=== PATIENT | female | born 1960 | race African-American/Black ===

== ENCOUNTER 2016-06-11 14:07 | Inpatient (IN) | payer MEDICAID, OTHER ==
[~2016-06-11] VITALS: Ht 175.3 cm; Wt 77.1 kg
[~2016-06-11 14:07] MED LIST: ADALAT CC60 MG ORAL; BENAZEPRIL HCL20 MG ORAL
[2016-06-11 14:20] VITALS: BP 105/92
--- NOTE | 2016-06-11 14:35 | Emergency Room Report ---
History of Present Illness General Chief Complaint: Back Pain-No Injury Source: Patient Present Illness HPI The patient presents with 3 days of feeling ill. She was laid up for [place]. She's been taking [place] and has been helping. She has left flank pain. The pain is constant and worse when she moves about. She denies any trauma. She had a cough a few weeks ago but this has gotten better. She denies any cough at this time. She denies sore throat, nausea, vomiting, diarrhea, dysuria, hematuria. She's not had this before. She denies any major medical problems. She's been able to take in oral fluids. She drove herself here. The pain is 6/10, achy but somewhat sharp. It doesn't radiate. No NVD, dysuria. No rashes, QUISPE, extremity pain. Allergies: Coded Allergies: No Known Allergies (Unverified , 12/09/13) Patient History Past Medical History: see triage record Social History: Reports: smoking - prior Social History Narrative at home Reviewed Nursing Documentation: PMH: Agreed, PSxH: Agreed Nursing Documentation-PMH Past Medical History: No History, Except For Hx Hypertension: Yes Review of Systems All Other Systems: negative except mentioned in HPI Physical Exam Vital Signs Date Time Temp Pulse Resp B/P Pulse Ox O2 Delivery O2 Flow Rate FiO2 06/11/16 14:12 100.9 123 16 106/69 98 Room Air Sp02 EP Interpretation: reviewed, normal General Appearance: well appearing, no apparent distress, GCS 15 Head: normocephalic Eyes: bilateral eye PERRL, bilateral eye normal inspection ENT: moist mucus membranes Neck: supple Respiratory: chest non-tender, lungs clear, normal breath sounds, percussion normal Cardiovascular #1: regular rate, rhythm, no edema Cardiovascular #2: 2+ radial (R) Gastrointestinal: normal inspection, normal bowel sounds, non tender, no mass, non-distended Genitourinary: CVA tenderness (L) Musculoskeletal: back normal, gait/station normal, normal range of motion, no calf tenderness, other - some L sided tenderness lower lungs/CVA area Neurologic: alert, oriented x3 - Grosssly normal neurologic exam Psychiatric: mood/affect normal Skin: normal inspection, warm/dry Medical Decision Making Diagnostic Impression: Primary Impression: Bilateral pneumonia Qualified Codes: J18.9 - Pneumonia, unspecified organism ER Course Patient presents with onset of flank pain prior history of cough. Chest is clear. There is no upper respiratory symptomatology this time which makes influenza less likely. Differential includes pneumonia, pleurisy of viral syndrome and pyonephritis/UTI. A chest x-ray will be obtained and urinalysis were evaluated. In addition to that she'll be treated with Tylenol. X-ray reveals bilateral infiltrates. Because of this the patient needs extended workup including labs, and EKG. Lactic acid elevated. WBC normal. D-dimer positive - CTA ordered. Negative for PE - bilateral infiltrates with L pleural effusion. Improved with treatment. Patient admitted telemetry Dr. Soni. Laboratory Tests Test 06/11/16 14:19 06/11/16 16:20 06/11/16 17:10 Urine Color Yellow Urine Appearance Slightly cloudy Urine pH 6 (4.5-8.0) Urine Specific [place] 1.010 (1.005-1.035) Urine Protein 1+ (NEGATIVE) H Urine Glucose (UA) Negative (NEGATIVE) Urine Ketones Negative (NEGATIVE) Urine Occult Blood Negative (NEGATIVE) Urine Nitrite Negative (NEGATIVE) Urine Bilirubin Negative (NEGATIVE) Urine Urobilinogen 4 MG/DL (0.0-1.0) H Urine Leukocyte Esterase 1+ (NEGATIVE) H Urine RBC 0-2 /HPF (0 - 2) Urine WBC 0-2 /HPF (0 - 2) Urine Squamous Epithelial Cells Few /LPF (NONE/OCC) Urine Bacteria Few /HPF (NONE) White Blood Count 6.4 K/UL (4.8-10.8) Red Blood Count 4.45 M/UL (4.20-5.40) Hemoglobin 13.4 G/DL (12.0-16.0) Hematocrit 41.7 % (37.0-47.0) Mean Corpuscular Volume 94 FL (80-99) Mean Corpuscular Hemoglobin 30.1 PG (27.0-31.0) Mean Corpuscular Hemoglobin Concent 32.2 G/DL (32.0-36.0) Red Cell Distribution Width 17.6 % (11.6-14.8) H Platelet Count 114 K/UL (150-450) L Mean Platelet Volume 9.2 FL (6.5-10.1) Neutrophils (%) (Auto) 83.0 % (45.0-75.0) H Lymphocytes (%) (Auto) 11.8 % (20.0-45.0) L Monocytes (%) (Auto) 4.7 % (1.0-10.0) Eosinophils (%) (Auto) 0.1 % (0.0-3.0) Basophils (%) (Auto) 0.5 % (0.0-2.0) Prothrombin Time 12.6 SEC (9.30-11.50) H Prothrombin Time INR 1.2 (0.9-1.1) H PTT 35 SEC (23-33) H D-Dimer 1988 ng/mL (<500) H Sodium Level 133 mEQ/L (135-145) L Potassium Level 3.6 mEQ/L (3.4-4.9) Chloride Level 92 mEQ/L (98-107) L Carbon Dioxide Level 25 mEQ/L (20-30) Anion Gap 16 (5-15) H Blood Urea Nitrogen 9 mg/dL (7-23) Creatinine 1.2 mg/dL (0.5-0.9) H Estimate Glomerular Filtration Rate 56.7 mL/min (>60) Glucose Level 108 mg/dL (74-106) H Lactic Acid Level 2.70 mmol/L (0.66-2.22) H 2.70 mmol/L (0.66-2.22) H Calcium Level 8.5 mg/dL (8.6-10.2) L Total Bilirubin 0.5 mg/dL (0.0-1.2) Aspartate Amino Transferase (AST) 38 U/L (5-40) Alanine Aminotransferase (ALT) 25 U/L (3-33) Alkaline Phosphatase 118 U/L (35-104) H Total Creatine Kinase 36 U/L (26-140) Troponin I < 0.30 ng/mL (<=0.30) Pro-B-Type Natriuretic Peptide 113 pg/mL (0-125) Total Protein 7.4 g/dL (6.6-8.7) Albumin 3.0 g/dL (3.5-5.2) L Globulin 4.4 g/dL Albumin/Globulin Ratio 0.6 (1.0-2.7) L EKG Diagnostic Results Rate: normal Rhythm: NSR ST Segments: no acute changes Rhythm Strip Diag. Results EP Interpretation: yes Rhythm: NSR, no PVC's, no ectopy Chest X-Ray Diagnostic Results EP Interpretation: Yes Findings: no pneumothorax, other - Bilateral infiltrates with possible left- sided effusion. Number of Views: 2 CT/MRI/US Diagnostic Results CT/MRI/US Diagnostic Results : Imaging Test Ordered: CTA chest Impression no major PE, bilateral infiltrates effusions. Findings: Pulmonary arterial opacification is barely adequate. No intraluminal filling defects or other findings to suggest acute pulmonary embolus are demonstrated. No thoracic aortic aneurysm or dissection. The main pulmonary artery is ectatic not frankly dilated. There is no evidence of right ventricular dilatation and the heart size is normal. There is normal variant anatomy of common origin of the right brachiocephalic and left common carotid arteries. There is dense consolidation of most of the left lower lobe. The consolidation contains air bronchograms. There is also dense consolidation of the superior segment of the right lower lobe as well as reticular and groundglass parenchymal opacities throughout the remainder of the right lower lobe. Reticular and groundglass parenchymal opacities are also seen within the perihilar right middle lobe and inferior right upper lobe. There are is a small left pleural effusion and trace right pleural effusion. Some peripheral bullae are seen in the right upper lobe. There is mediastinal lymphadenopathy, with largest node being a subcarinal node which measures at least 3.6 cm long axis dimension. Calcified granulomatous lymph nodes are seen in the right pulmonary hilum. The esophagus is unremarkable. No axillary or chest wall mass or adenopathy. The bones are unremarkable. Images of the upper abdomen demonstrate that the spleen is enlarged, measuring at least 13.4 cm diameter, possibly larger as it is incompletely included in the imaging volume. It contains multiple granulomas calcifications. The liver demonstrates prominent and somewhat irregular hepatic arteries. It also demonstrates some peripheral surface nodularity. There are anterior abdominal wall varicosities Impression: No evidence of acute pulmonary embolus Dense consolidation of most of the left lower lobe, consistent with pneumonia There is also patchy consolidation of the right lung, as detailed above Bilateral left greater than right pleural effusions Mediastinal lymphadenopathy. 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 However, the presence of mediastinal lymphadenopathy also raises the possibility that this could be due to lymphoproliferative disorder Evidence of old granulomatous disease within the right pulmonary hilum and spleen Last Vital Signs Date Time Temp Pulse Resp B/P Pulse Ox O2 Delivery O2 Flow Rate FiO2 06/11/16 14:22 123 16 Room Air 06/11/16 14:12 100.9 106/69 98 Status: improved Disposition: ADMITTED INPATIENT Condition: Serious Nghia Barajas M.D. Jun 11, 2016 14:35
[2016-06-11 14:44] LABS: APPEARANCE,URINE SLIGHTLY CLOUDY; KETONES,URINE NEGATIVE (NEGATIVE); LEUKOCYTE ESTERASE ,URINE 1+ (NEGATIVE); NITRITE,URINE NEGATIVE (NEGATIVE); PH,URINE 6 (4.5-8.0); PROTEIN,URINE 1+ (NEGATIVE); UROBILINOGEN,URINE 4 MG/DL (0.0-1.0)
[2016-06-11 14:54] LABS: BACTERIA,URINE FEW /HPF; RBC,URINE 0-2 /HPF (0 - 2); SQUAMOUS EPITHELIAL CELL,UR FEW /LPF (NONE/OCC); WBC,URINE 0-2 /HPF (0 - 2)
[2016-06-11] MEDS ORDERED: Azithromycin 500 MG in NS 250 ML IV ONE (15:30)
[2016-06-11] MEDS ORDERED: LORazepam Inj 2mg/ml 1ml IV ONE (16:00)
[2016-06-11 16:32] VITALS: BP 115/80
[2016-06-11 16:44] LABS: BASOPHILS % (AUTO) 0.5 % (0.0-2.0); EOSINOPHILS % (AUTO) 0.1 % (0.0-3.0); LYMPHOCYTES % (AUTO) 11.8 % (20.0-45.0); MEAN CORPUSCULAR HEMOGLOBIN 30.1 PG (27.0-31.0); MEAN CORPUSCULAR HGB CONC 32.2 G/DL (32.0-36.0); MEAN CORPUSCULAR VOLUME 94 FL (80-99); MEAN PLATELET VOLUME 9.2 FL (6.5-10.1); MONOCYTES % (AUTO) 4.7 % (1.0-10.0); PLATELET COUNT 114 K/UL (150-450); RED BLOOD COUNT 4.45 M/UL (4.20-5.40); RED CELL DISTRIBUTION WIDTH 17.6 % (11.6-14.8); WHITE BLOOD COUNT 6.4 K/UL (4.8-10.8)
[2016-06-11] MEDS ORDERED: Azithromycin Inj IV ONE (16:46)
[2016-06-11 16:59] LABS: TROPONIN I < 0.30 ng/mL (<=0.30)
[2016-06-11 17:03] LABS: ALANINE AMINOTRANSFERASE 25 U/L (3-33); ALBUMIN/GLOBULIN RATIO 0.6 (1.0-2.7); ANION GAP 16 (5-15); ASPARTATE AMINO TRANSFERASE 38 U/L (5-40); CALCIUM 8.5 mg/dL (8.6-10.2); CARBON DIOXIDE 25 mEQ/L (20-30); CHLORIDE 92 mEQ/L (98-107); CREATININE 1.2 mg/dL (0.5-0.9); GLOMERULAR FILTRATION RATE 56.7 mL/min (>60); HEMOLYSIS 44; POTASSIUM 3.6 mEQ/L (3.4-4.9); SODIUM 133 mEQ/L (135-145); TOTAL PROTEIN 7.4 g/dL (6.6-8.7)
[2016-06-11 17:10] LABS: REFLEX LACTIC ACID YES OR NO YES
[2016-06-11 17:19] LABS: INR 1.2 (0.9-1.1); PROTHROMBIN TIME 12.6 SEC (9.30-11.50)
[2016-06-11 18:25] VITALS: BP 105/78
[2016-06-11] MEDS ORDERED: Nitroglycerin Subl 0.4mg tab (Bottle Of 25) SL PRN (22:30)
[2016-06-11] MEDS ORDERED: Mylanta II UD 30ml ORAL PRN (22:30)
[2016-06-11] MEDS ORDERED: Miralax 17gm pkt ORAL PRN (22:30)
[2016-06-11] MEDS ORDERED: DuoNeb 0.5-3(2.5)mg/3ml neb HHN PRN (22:30)
[2016-06-11] MEDS ORDERED: Promethazine/Codeine 5ml UD ORAL PRN (22:30)
[2016-06-12] VITALS (7 sets, daily range): BP systolic 94–107; BP diastolic 54–71
--- NOTE | 2016-06-12 08:37 | Diagnostic Imaging Report ---
ndication: Cough Technique: IV administration nonionic contrast. Spiral acquisitions obtained from the lung bases to the lung apices. Multiplanar and 3-D reconstructions were generated. Total dose length product 750 mGycm. CTDIvol(s) 12, 12, 12, 25, 22 mGy Comparison: None Findings: Pulmonary arterial opacification is barely adequate. No intraluminal filling defects or other findings to suggest acute pulmonary embolus are demonstrated. No thoracic aortic aneurysm or dissection. The main pulmonary artery is ectatic not frankly dilated. There is no evidence of right ventricular dilatation and the heart size is normal. There is normal variant anatomy of common origin of the right brachiocephalic and left common carotid arteries. There is dense consolidation of most of the left lower lobe. The consolidation contains air bronchograms. There is also dense consolidation of the superior segment of the right lower lobe as well as reticular and groundglass parenchymal opacities throughout the remainder of the right lower lobe. Reticular and groundglass parenchymal opacities are also seen within the perihilar right middle lobe and inferior right upper lobe. There are is a small left pleural effusion and trace right pleural effusion. Some peripheral bullae are seen in the right upper lobe. There is mediastinal lymphadenopathy, with largest node being a subcarinal node which measures at least 3.6 cm long axis dimension. Calcified granulomatous lymph nodes are seen in the right pulmonary hilum. The esophagus is unremarkable. No axillary or chest wall mass or adenopathy. The bones are unremarkable. Images of the upper abdomen demonstrate that the spleen is enlarged, measuring at least 13.4 cm diameter, possibly larger as it is incompletely included in the imaging volume. It contains multiple granulomas calcifications. The liver demonstrates prominent and somewhat irregular hepatic arteries. It also demonstrates some peripheral surface nodularity. There are anterior abdominal wall varicosities Impression: No evidence of acute pulmonary embolus Dense consolidation of most of the left lower lobe, consistent with pneumonia There is also patchy consolidation of the right lung, as detailed above Bilateral left greater than right pleural effusions Mediastinal lymphadenopathy. 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 However, the presence of mediastinal lymphadenopathy also raises the possibility that this could be due to lymphoproliferative disorder Evidence of old granulomatous disease within the right pulmonary hilum and spleen This agrees with the preliminary interpretation provided overnight by Dr. Márquez The CT scanner at [facility] is accredited by the [employer] and the scans are performed using protocols designed to limit radiation exposure to as low as reasonably achievable to attain images of sufficient resolution adequate for diagnostic evaluation.
[2016-06-12 08:51] LABS: MEAN CORPUSCULAR HEMOGLOBIN 30.1 PG (27.0-31.0); MEAN CORPUSCULAR HGB CONC 32.2 G/DL (32.0-36.0); MEAN CORPUSCULAR VOLUME 94 FL (80-99); MEAN PLATELET VOLUME 8.4 FL (6.5-10.1); PLATELET COUNT 102 K/UL (150-450); RED BLOOD COUNT 4.33 M/UL (4.20-5.40); RED CELL DISTRIBUTION WIDTH 17.7 % (11.6-14.8); WHITE BLOOD COUNT 6.6 K/UL (4.8-10.8)
[2016-06-12] MEDS ORDERED: NIFEdipine 10mg cap ORAL SCH (09:00)
[2016-06-12] MEDS: Heparin 5000 units/ml inj SUBQ SCH ×3 (09:00→21:00)
[2016-06-12 09:22] LABS: ANION GAP 15 (5-15); CALCIUM 8.3 mg/dL (8.6-10.2); CARBON DIOXIDE 26 mEQ/L (20-30); CHLORIDE 91 mEQ/L (98-107); GLOMERULAR FILTRATION RATE > 60 mL/min (>60); HEMOLYSIS 6; PHOSPHORUS 3.5 mg/dL (2.5-4.8); POTASSIUM 3.2 mEQ/L (3.4-4.9); SODIUM 132 mEQ/L (135-145)
[2016-06-12] MEDS: Norco 10mg/325mg tab ORAL PRN ×2 (09:46→19:30)
--- NOTE | 2016-06-12 09:58 | Cardiology Report ---
APPROVED REPORT EKG Measurement Heart [id number] Sinus tachycardia Nonspecific T wave abnormality Abnormal ECG
[2016-06-12 10:05] LABS: ANISOCYTOSIS 1+; BAND NEUTROPHILS % (MANUAL) 10 % (0-8); BASOPHILS % (MANUAL) 0 % (0-2); EOSINOPHILS % (MANUAL) 0 % (0-3); LYMPHOCYTES % (MANUAL) 13 % (20-45); NEUTROPHILS % (MANUAL) 70 % (45-75); PLATELET ESTIMATE DECREASED; PLATELET MORPHOLOGY NORMAL; TOTAL CELLS COUNTED 100
[2016-06-12] MEDS ORDERED: Promethazine/Codeine 5ml UD ORAL PRN (12:30)
[2016-06-12] MEDS ORDERED: PPD Tuberculin Skin Test 5TU IDERMAL ONE (12:30)
--- NOTE | 2016-06-12 12:30 | History and Physical ---
History of Present Illness General Date patient seen: Jun 12, 2016 Reason for Hospitalization: Back Pain-No Injury Present Illness HPI 55 year olf patient presents with 3 days of feeling ill. She had a cough a few weeks ago but this has gotten better. She denies sore throat, nausea, vomiting, diarrhea, dysuria, hematuria. She's not had this before. She denies any major medical problems. She had CT scan in ER to rule out pulmonary embolism, which showed extensive pulmonary edema and lymphadenopathy. She is admitted to further management. Allergies: Coded Allergies: No Known Allergies (Unverified , 12/09/13) Medication History Scheduled Benazepril Hcl* (Benazepril Hcl*), 20 MG ORAL EVERY 12 HOURS, (Reported) Nifedipine Er* (Adalat Cc*), 60 MG ORAL DAILY Patient History Healthcare decision maker Resuscitation status Advanced Directive on File Past Medical/Surgical History Past Medical/Surgical History: (1) HTN (hypertension) Review of Systems All Other Systems: negative except mentioned in HPI Physical Exam General Appearance: WD/WN, mild distress Lines, tubes and drains: peripheral HEENT: normocephalic, atraumatic Neck: non-tender, normal alignment Cardiovascular/Chest: normal peripheral pulses, normal rate Abdomen: normal bowel sounds, non tender Last 24 Hour Vital Signs Date Time Temp Pulse Resp B/P Pulse Ox O2 Delivery O2 Flow Rate FiO2 06/12/16 11:52 94 18 Room Air 21 06/12/16 11:24 98.2 99 18 97/54 96 Room Air 06/12/16 08:28 96 94/63 06/12/16 08:00 97 06/12/16 07:40 98.1 96 18 94/63 91 Room Air 06/12/16 04:00 111 06/12/16 04:00 100.0 114 20 98/59 90 Room Air 06/12/16 00:00 97.3 100 20 96/55 90 Room Air 06/12/16 00:00 99 06/11/16 19:01 99.9 99 18 105/78 100 Room Air 06/11/16 18:25 99.9 99 18 105/78 100 Room Air 06/11/16 16:32 99.9 100 18 115/80 98 Room Air 06/11/16 14:22 123 16 Room Air 06/11/16 14:20 99.9 101 16 105/92 98 Room Air 06/11/16 14:12 100.9 123 16 106/69 98 Room Air Intake and Output 06/11/16 06/12/16 19:00 07:00 Intake Total 240 ml Balance 240 ml Intake Oral 240 ml # Voids 1 Laboratory Tests Test 06/11/16 14:19 06/11/16 16:20 06/11/16 17:10 06/12/16 08:25 Urine Color Yellow Urine Appearance Slightly cloudy Urine pH 6 (4.5-8.0) Urine Specific [place] 1.010 (1.005-1.035) Urine Protein 1+ (NEGATIVE) H Urine Glucose (UA) Negative (NEGATIVE) Urine Ketones Negative (NEGATIVE) Urine Occult Blood Negative (NEGATIVE) Urine Nitrite Negative (NEGATIVE) Urine Bilirubin Negative (NEGATIVE) Urine Urobilinogen 4 MG/DL (0.0-1.0) H Urine Leukocyte Esterase 1+ (NEGATIVE) H Urine RBC 0-2 /HPF (0 - 2) Urine WBC 0-2 /HPF (0 - 2) Urine Squamous Epithelial Cells Few /LPF (NONE/OCC) Urine Bacteria Few /HPF (NONE) White Blood Count 6.4 K/UL (4.8-10.8) 6.6 K/UL (4.8-10.8) Red Blood Count 4.45 M/UL (4.20-5.40) 4.33 M/UL (4.20-5.40) Hemoglobin 13.4 G/DL (12.0-16.0) 13.0 G/DL (12.0-16.0) Hematocrit 41.7 % (37.0-47.0) 40.5 % (37.0-47.0) Mean Corpuscular Volume 94 FL (80-99) 94 FL (80-99) Mean Corpuscular Hemoglobin 30.1 PG (27.0-31.0) 30.1 PG (27.0-31.0) Mean Corpuscular Hemoglobin Concent 32.2 G/DL (32.0-36.0) 32.2 G/DL (32.0-36.0) Red Cell Distribution Width 17.6 % (11.6-14.8) H 17.7 % (11.6-14.8) H Platelet Count 114 K/UL (150-450) L 102 K/UL (150-450) L Mean Platelet Volume 9.2 FL (6.5-10.1) 8.4 FL (6.5-10.1) Neutrophils (%) (Auto) 83.0 % (45.0-75.0) H % (45.0-75.0) Lymphocytes (%) (Auto) 11.8 % (20.0-45.0) L % (20.0-45.0) Monocytes (%) (Auto) 4.7 % (1.0-10.0) % (1.0-10.0) Eosinophils (%) (Auto) 0.1 % (0.0-3.0) % (0.0-3.0) Basophils (%) (Auto) 0.5 % (0.0-2.0) % (0.0-2.0) Prothrombin Time 12.6 SEC (9.30-11.50) H Prothromb Time International Ratio 1.2 (0.9-1.1) H Activated Partial Thromboplast Time 35 SEC (23-33) H D-Dimer 1988 ng/mL (<500) H Sodium Level 133 mEQ/L (135-145) L 132 mEQ/L (135-145) L Potassium Level 3.6 mEQ/L (3.4-4.9) 3.2 mEQ/L (3.4-4.9) L Chloride Level 92 mEQ/L (98-107) L 91 mEQ/L (98-107) L Carbon Dioxide Level 25 mEQ/L (20-30) 26 mEQ/L (20-30) Anion Gap 16 (5-15) H 15 (5-15) Blood Urea Nitrogen 9 mg/dL (7-23) 9 mg/dL (7-23) Creatinine 1.2 mg/dL (0.5-0.9) H 1.0 mg/dL (0.5-0.9) H Estimat Glomerular Filtration Rate 56.7 mL/min (>60) > 60 mL/min (>60) Glucose Level 108 mg/dL (74-106) H 95 mg/dL (74-106) Lactic Acid Level 2.70 mmol/L (0.66-2.22) H 2.70 mmol/L (0.66-2.22) H Calcium Level 8.5 mg/dL (8.6-10.2) L 8.3 mg/dL (8.6-10.2) L Total Bilirubin 0.5 mg/dL (0.0-1.2) Aspartate Amino Transf (AST/SGOT) 38 U/L (5-40) Alanine Aminotransferase (ALT/SGPT) 25 U/L (3-33) Alkaline Phosphatase 118 U/L (35-104) H Total Creatine Kinase 36 U/L (26-140) Troponin I < 0.30 ng/mL (<=0.30) Pro-B-Type Natriuretic Peptide 113 pg/mL (0-125) Total Protein 7.4 g/dL (6.6-8.7) Albumin 3.0 g/dL (3.5-5.2) L 2.4 g/dL (3.5-5.2) L Globulin 4.4 g/dL Albumin/Globulin Ratio 0.6 (1.0-2.7) L Differential Total Cells Counted 100 Neutrophils % (Manual) 70 % (45-75) Lymphocytes % (Manual) 13 % (20-45) L Monocytes % (Manual) 7 % (1-10) Eosinophils % (Manual) 0 % (0-3) Basophils % (Manual) 0 % (0-2) Band Neutrophils 10 % (0-8) H Platelet Estimate Decreased L Platelet Morphology Normal Anisocytosis 1+ Phosphorus Level 3.5 mg/dL (2.5-4.8) Height (Feet): 5 Height (Inches): 9.00 Weight (Pounds): 170 Medications Current Medications Medications (Trade) Dose Ordered Sig/Benito Route PRN Reason Start Time Stop Time Status Last Admin Dose Admin Acetaminophen (Tylenol) 650 mg Q4H PRN ORAL Fever/Headache/Mild Pain 06/12/16 06:30 07/12/16 06:29 06/12/16 05:16 Acetaminophen/ Hydrocodone Bitart 1 ea 1 ea Q4H PRN ORAL Pain Scale (6-10) 06/12/16 08:00 06/19/16 07:59 06/12/16 09:46 Al Hydroxide/Mg Hydroxide (Mylanta II) 30 ml Q6H PRN ORAL dyspepsia 06/11/16 22:30 07/11/16 22:29 Albuterol/ Ipratropium (DuoNeb 0.5-3(2.5)mg/3ml) 3 ml EVERY 4 HOURS PRN HHN Shortness of Breath 06/11/16 22:30 06/16/16 22:29 Cefepime HCl/ Sodium Chloride (Maxipime/Sodium Chloride 50ml bag) 50 ml @ 100 mls/hr EVERY 12 HOURS IV 06/12/16 09:00 06/19/16 08:59 06/12/16 09:44 Heparin Sodium (Porcine) (Heparin 5000 units/ml) 5,000 units EVERY 12 HOURS SUBQ 06/12/16 09:00 07/12/16 08:59 06/12/16 09:54 Nifedipine (Adalat) 60 mg DAILY ORAL 06/12/16 09:00 07/12/16 08:59 Nitroglycerin (Ntg) 0.4 mg Q5M PRN SL Prn Chest Pain 06/11/16 22:30 07/11/16 22:29 Ondansetron HCl (Zofran) 4 mg Q6H PRN IVP Nausea & Vomiting 06/11/16 22:30 07/11/16 22:29 Polyethylene Glycol (Miralax) 17 gm DAILYPRN PRN ORAL Constipation 06/11/16 22:30 07/11/16 22:29 Promethazine HCl/ Codeine (Phenergan with Codeine) 5 ml Q4H PRN ORAL For Cough 06/11/16 22:30 07/11/16 22:29 Temazepam (Restoril) 15 mg HSPRN PRN ORAL Insomnia 06/11/16 22:30 06/18/16 22:29 Assessment/Plan Problem List: (1) Bilateral pneumonia ICD Codes: J18.9 - Pneumonia, unspecified organism SNOMED: 520064750 Qualifiers: Qualified Codes: J18.9 - Pneumonia, unspecified organism (2) Mediastinal lymphadenopathy ICD Codes: R59.0 - Localized enlarged lymph nodes SNOMED: 24878415 (3) Hyponatremia ICD Codes: E87.1 - Hypo-osmolality and hyponatremia SNOMED: 78367660 (4) Portal hypertension ICD Codes: K76.6 - Portal hypertension SNOMED: 29853522 (5) HTN (hypertension) ICD Codes: I10 - Essential (primary) hypertension SNOMED: 39249045 Assessment/Plan IV antibioitcs check sputum abdominal US PPd skin testin HIV testing JAD BYNUM Jun 12, 2016 12:30
[2016-06-12 13:04] LABS: URIC ACID 6.7 mg/dL (3.0-7.5)
--- NOTE | 2016-06-12 13:05 | Consultation ---
Consult Note Consult Note ID DIC # [id number] JORGE DYE M.D. Jun 12, 2016 13:05
[2016-06-12] MEDS: DuoNeb 0.5-3(2.5)mg/3ml neb HHN SCH ×2 (13:06→19:00)
[2016-06-12 13:15] LABS: CORTISOL 11.1 ug/dL; FREE T3 0.9 pg/mL (2.3-4.2); THYROID STIMULATING HORMONE 0.618 uIU/mL (0.300-4.500)
--- NOTE | 2016-06-12 20:08 | Consultation ---
DATE OF CONSULTATION: INFECTIOUS DISEASE CONSULTATION REFERRING PHYSICIAN: Gamal Soni M.D. REASON FOR CONSULTATION: Evaluation of the patient for pneumonia. HISTORY OF PRESENT ILLNESS: The patient is a 55-year-old female who came to the hospital with generalized weakness. The patient has been complaining of cough and was found to have low-grade fever. CT scan of the chest is suggestive of left lung consolidation and right infiltrate. Infectious consultation has been requested for further evaluation for the patient's antibiotic management. PAST MEDICAL HISTORY: History of hypertension. MEDICATIONS: IV cefepime. ALLERGIES: No known drug allergies. SOCIAL HISTORY: Negative for alcohol, drug, or smoking. FAMILY HISTORY: Noncontributory. PHYSICAL EXAMINATION: VITAL SIGNS: Temperature 98.2 degrees, blood pressure 97/54, pulse 99, respiratory rate 18, and T-max 100.9 degrees. HEENT: Mild pale conjunctivae. No icterus. NECK: No lymphadenopathy. CHEST: Coarse breathing sounds. HEART: S1 and S2. ABDOMEN: Soft. EXTREMITIES: No cyanosis. NEUROLOGIC: Awake and alert. LABORATORY AND DIAGNOSTIC DATA: White blood cell 6.6, hemoglobin 13, platelets 102,000. Urinalysis unremarkable. BUN 9 and creatinine 1. AST and ALT are unremarkable and alkaline 118. Blood culture is pending. CT of the chest as mentioned above. ASSESSMENT: The patient is a 55-year-old female with multiple medical problems who came to the hospital with generalized weakness. The patient was found to have pneumonia flu. Also, the patient will benefit from an atypical coverage. The patient's CT scan also showed splenomegaly. The patient white count for the infection that the patient has. possibility of history of human immunodeficiency virus. PLAN: 1. We will continue the patient on IV cefepime and add Zithromax. 2. Human immunodeficiency virus. 3. Monitor blood culture and sputum culture. 4. Monitor chest x-ray. 5. Monitor CBC. 6. Monitor BMP. 7. Based on labs, we will do further recommendation. Thank you, Dr. Soni, for allowing me to participate in the care of this patient. I will follow the patient with you. Alcides Adams M.D. DR: HAIR JOB#: [id number] CC:
[2016-06-12] MEDS ORDERED: Nitroglycerin Subl 0.4mg tab (Bottle Of 25) SL PRN (22:20)
[2016-06-12] MEDS ORDERED: Miralax 17gm pkt ORAL PRN (22:30)
[2016-06-12] MEDS ORDERED: Mylanta II UD 30ml ORAL PRN (22:30)
[2016-06-13] VITALS: BP 113/65
[2016-06-13] MEDS ORDERED: Norco 10mg/325mg tab ORAL PRN
[2016-06-13] MEDS ORDERED: Promethazine/Codeine 5ml UD ORAL PRN (00:30)
[2016-06-13] MEDS: DuoNeb 0.5-3(2.5)mg/3ml neb HHN SCH ×4 (01:31→19:00)
[2016-06-13 04:00] VITALS: BP 107/65
[2016-06-13 07:03] LABS: APPEARANCE,URINE CLEAR; KETONES,URINE NEGATIVE (NEGATIVE); LEUKOCYTE ESTERASE ,URINE NEGATIVE (NEGATIVE); NITRITE,URINE NEGATIVE (NEGATIVE); PH,URINE 7 (4.5-8.0); PROTEIN,URINE NEGATIVE (NEGATIVE); UROBILINOGEN,URINE 1 MG/DL (0.0-1.0)
[2016-06-13 07:21] LABS: BACTERIA,URINE OCCASIONAL /HPF; RBC,URINE 0-2 /HPF (0 - 2); SQUAMOUS EPITHELIAL CELL,UR FEW /LPF (NONE/OCC); WBC,URINE 0-2 /HPF (0 - 2)
[2016-06-13 08:00] VITALS: BP 109/68
[2016-06-13] MEDS ORDERED: Heparin 5000 units/ml inj SUBQ SCH (09:00)
--- NOTE | 2016-06-13 11:10 | Infectious Diseases Prog Note ---
Assessment/Plan Assessment/Plan A: The patient is a 55-year-old female Pneumonia CT: left lung consolidation and right infiltrate. Low-grade fever HIV Pt now admits to have HIV CD4 ( high ) and VL < 20 ) , does not recall her HIV meds HTN PLAN: cont on IV cefepime and add Zithromax d# 2 / 5 Monitor blood culture Monitor sputum culture Monitor chest x-ray Monitor CBC Monitor BMP asked RN to call pt HIV provider for the list of meds Subjective Allergies: Coded Allergies: No Known Allergies (Unverified , 12/09/13) Objective Vital Signs Last 24 Hour Vital Signs Date Time Temp Pulse Resp B/P Pulse Ox O2 Delivery O2 Flow Rate FiO2 06/13/16 10:12 74 18 96 Room Air 06/13/16 10:10 Room Air 06/13/16 10:09 Room Air 06/13/16 08:00 97.9 105 18 109/68 92 Room Air 06/13/16 04:00 97.9 95 20 107/65 95 Room Air 06/13/16 01:39 96 18 98 Room Air 21 06/13/16 01:29 94 20 95 Room Air 21 06/13/16 00:00 96.1 101 20 113/65 95 Room Air 06/12/16 22:45 97.9 100 20 107/71 95 Nasal Cannula 2.0 06/12/16 20:12 75 18 97 Room Air 21 06/12/16 20:02 72 22 96 Room Air 21 06/12/16 20:00 97.8 100 20 98/68 96 Room Air 06/12/16 16:00 97.5 102 20 99/69 92 Room Air 06/12/16 16:00 103 06/12/16 15:02 Room Air 06/12/16 15:02 Room Air 06/12/16 13:07 92 20 95 Room Air 21 06/12/16 12:00 99 06/12/16 11:52 94 18 Room Air 21 06/12/16 11:24 98.2 99 18 97/54 96 Room Air Height (Feet): 5 Height (Inches): 9.00 Weight (Pounds): 170 Microbiology Date/Time Source Procedure Growth Status 06/11/16 16:20 Blood Blood Culture - Preliminary NO GROWTH AFTER 24 HOURS Resulted 06/11/16 16:05 Blood Blood Culture - Preliminary NO GROWTH AFTER 24 HOURS Resulted Laboratory Tests Test 06/13/16 06:15 Urine Color Yellow Urine Appearance Clear Urine pH 7 (4.5-8.0) Urine Specific [place] 1.005 (1.005-1.035) Urine Protein Negative (NEGATIVE) Urine Glucose (UA) Negative (NEGATIVE) Urine Ketones Negative (NEGATIVE) Urine Occult Blood Negative (NEGATIVE) Urine Nitrite Negative (NEGATIVE) Urine Bilirubin Negative (NEGATIVE) Urine Urobilinogen 1 MG/DL (0.0-1.0) H Urine Leukocyte Esterase Negative (NEGATIVE) Urine RBC 0-2 /HPF (0 - 2) Urine WBC 0-2 /HPF (0 - 2) Urine Squamous Epithelial Cells Few /LPF (NONE/OCC) Urine Bacteria Occasional /HPF (NONE) Urine Osmolality Pending Urine Random Sodium 43 mmol/L Current Medications Medications (Trade) Dose Ordered Sig/[place] Route PRN Reason Start Time Stop Time Status Last Admin Dose Admin Acetaminophen (Tylenol) 650 mg Q4H PRN ORAL Fever/Headache/Mild Pain 06/12/16 22:30 07/12/16 22:29 Acetaminophen/ Hydrocodone Bitart ([place] 10/325) 1 ea Q4H PRN ORAL Pain Scale (6-10) 06/13/16 00:00 06/20/16 00:00 Al Hydroxide/Mg Hydroxide (Mylanta II) 30 ml Q6H PRN ORAL dyspepsia 06/12/16 22:30 07/12/16 22:29 Albuterol/ Ipratropium (DuoNeb 0.5-3(2.5)mg/3ml) 3 ml Q4H PRN HHN Shortness of Breath 06/13/16 01:00 06/18/16 00:59 Albuterol/ Ipratropium (DuoNeb 0.5-3(2.5)mg/3ml) 3 ml Q6HRT HHN 06/13/16 01:00 06/18/16 00:59 06/13/16 01:31 Azithromycin 500 mg/Dextrose 250 ml @ 250 mls/hr Q24HRS IV 06/13/16 14:00 06/18/16 14:01 Cefepime HCl/ Sodium Chloride (Maxipime/Sodium Chloride 50ml bag) 50 ml @ 100 mls/hr EVERY 12 HOURS IV 06/13/16 09:00 06/20/16 08:59 Nifedipine (Procardia XL) 60 mg DAILY ORAL 06/13/16 09:00 07/13/16 08:59 Nitroglycerin (Ntg) 0.4 mg Q5M PRN SL Prn Chest Pain 06/12/16 22:20 07/12/16 22:19 Ondansetron HCl (Zofran) 4 mg Q6H PRN IVP Nausea & Vomiting 06/12/16 22:30 07/12/16 22:29 Polyethylene Glycol (Miralax) 17 gm DAILYPRN PRN ORAL Constipation 06/12/16 22:30 07/12/16 22:29 Promethazine HCl/ Codeine (Phenergan with Codeine) 5 ml Q4H PRN ORAL For Cough 06/12/16 22:30 07/12/16 22:29 Temazepam (Restoril) 15 mg HSPRN PRN ORAL Insomnia 06/12/16 22:30 06/19/16 22:29 JORGE DYE M.D. Jun 13, 2016 11:10
[2016-06-13 12:00] VITALS: BP 99/61
[2016-06-13 15:14] LABS: HIV-1 ANTIBODY Positive (Negative); HIV-2 ANTIBODY Indeterminate (Negative)
[2016-06-13 16:00] VITALS: BP 98/63
--- NOTE | 2016-06-13 16:47 | Pulmonology Progress Note ---
Assessment/Plan Problems: (1) Bilateral pneumonia (2) Mediastinal lymphadenopathy (3) Hyponatremia (4) Portal hypertension (5) HTN (hypertension) Assessment/Plan continue antibiotics check sputum cxr in am Subjective ROS Limited/Unobtainable: No Constitutional: Reports: no symptoms HEENT: Repors: no symptoms Respiratory: Reports: no symptoms Cardiovascular: Reports: no symptoms Allergies: Coded Allergies: No Known Allergies (Unverified , 12/09/13) Objective Last 24 Hour Vital Signs Date Time Temp Pulse Resp B/P Pulse Ox O2 Delivery O2 Flow Rate FiO2 06/13/16 13:00 65 14 100 Room Air 21 06/13/16 12:00 96.0 100 16 99/61 95 Room Air 06/13/16 10:12 74 18 96 Room Air 06/13/16 10:10 Room Air 06/13/16 10:09 Room Air 06/13/16 08:00 97.9 105 18 109/68 92 Room Air 06/13/16 04:00 97.9 95 20 107/65 95 Room Air 06/13/16 01:39 96 18 98 Room Air 21 06/13/16 01:29 94 20 95 Room Air 21 06/13/16 00:00 96.1 101 20 113/65 95 Room Air 06/12/16 22:45 97.9 100 20 107/71 95 Nasal Cannula 2.0 06/12/16 20:12 75 18 97 Room Air 21 06/12/16 20:02 72 22 96 Room Air 21 06/12/16 20:00 97.8 100 20 98/68 96 Room Air Intake and Output 06/12/16 06/13/16 19:00 07:00 Intake Total 790 ml 350 ml Balance 790 ml 350 ml Intake Oral 440 ml 350 ml IV Total 350 ml # Voids 3 2 General Appearance: WD/WN HEENT: normocephalic, atraumatic Respiratory/Chest: chest wall non-tender, lungs clear Breasts: no masses Cardiovascular: normal rate Abdomen: normal bowel sounds, soft, non tender Extremities: no cyanosis, no clubbing 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, no motor/sensory deficits Microbiology Date/Time Source Procedure Growth Status 06/11/16 16:20 Blood Blood Culture - Preliminary NO GROWTH AFTER 24 HOURS Resulted 06/11/16 16:05 Blood Blood Culture - Preliminary NO GROWTH AFTER 24 HOURS Resulted Laboratory Tests 06/13/16 06:15: Urine Color Yellow, Urine Appearance Clear, Urine pH 7, Urine Specific [place] 1.005, Urine Protein Negative, Urine Glucose (UA) Negative, Urine Ketones Negative, Urine Occult Blood Negative, Urine Nitrite Negative, Urine Bilirubin Negative, Urine Urobilinogen 1H, Urine Leukocyte Esterase Negative, Urine RBC 0- 2, Urine WBC 0-2, Urine Squamous Epithelial Cells Few, Urine Bacteria Occasional , Urine Osmolality [Pending], Urine Random Sodium 43 Current Medications Medications (Trade) Dose Ordered Sig/[place] Route PRN Reason Start Time Stop Time Status Last Admin Dose Admin Acetaminophen (Tylenol) 650 mg Q4H PRN ORAL Fever/Headache/Mild Pain 06/12/16 22:30 07/12/16 22:29 Acetaminophen/ Hydrocodone Bitart ([place] 10/325) 1 ea Q4H PRN ORAL Pain Scale (6-10) 06/13/16 00:00 06/20/16 00:00 Al Hydroxide/Mg Hydroxide (Mylanta II) 30 ml Q6H PRN ORAL dyspepsia 06/12/16 22:30 07/12/16 22:29 Albuterol/ Ipratropium (DuoNeb 0.5-3(2.5)mg/3ml) 3 ml Q4H PRN HHN Shortness of Breath 06/13/16 01:00 06/18/16 00:59 Albuterol/ Ipratropium (DuoNeb 0.5-3(2.5)mg/3ml) 3 ml Q6HRT HHN 06/13/16 01:00 06/18/16 00:59 06/13/16 01:31 Azithromycin 500 mg/Dextrose 250 ml @ 250 mls/hr Q24HRS IV 06/13/16 14:00 06/18/16 14:01 Cefepime HCl/ Sodium Chloride (Maxipime/Sodium Chloride 50ml bag) 50 ml @ 100 mls/hr EVERY 12 HOURS IV 06/13/16 09:00 06/20/16 08:59 Nifedipine (Procardia XL) 60 mg DAILY ORAL 06/13/16 09:00 07/13/16 08:59 Nitroglycerin (Ntg) 0.4 mg Q5M PRN SL Prn Chest Pain 06/12/16 22:20 07/12/16 22:19 Ondansetron HCl (Zofran) 4 mg Q6H PRN IVP Nausea & Vomiting 06/12/16 22:30 07/12/16 22:29 Polyethylene Glycol (Miralax) 17 gm DAILYPRN PRN ORAL Constipation 06/12/16 22:30 07/12/16 22:29 Promethazine HCl/ Codeine (Phenergan with Codeine) 5 ml Q4H PRN ORAL For Cough 06/12/16 22:30 07/12/16 22:29 Temazepam (Restoril) 15 mg HSPRN PRN ORAL Insomnia 06/12/16 22:30 06/19/16 22:29 JAD BYNUM Jun 13, 2016 16:47
--- NOTE | 2016-06-13 17:03 | Diagnostic Imaging Report ---
Indications: Shortness of breath Technique: PA and lateral chest Findings: Comparison: 06/11 16 Bilateral batwing alveolar infiltrates have increased in severity. Blunting of left costophrenic angle indicating pleural effusion persists. Cardiac mediastinal silhouette stable. No new abnormality identified. IMPRESSION: Worsening of bilateral alveolar opacities compatible with progression of pulmonary edema versus pneumonitis Stable small left pleural effusion
[2016-06-13 19:00] VITALS: BP 115/77
[2016-06-14] VITALS (7 sets, daily range): BP systolic 99–112; BP diastolic 63–74
[2016-06-14] MEDS: DuoNeb 0.5-3(2.5)mg/3ml neb HHN PRN ×2 (00:49→16:56)
[2016-06-14] MEDS: Promethazine/Codeine 5ml UD ORAL PRN ×4 (01:33→21:11)
[2016-06-14] MEDS: DuoNeb 0.5-3(2.5)mg/3ml neb HHN SCH ×4 (07:39→18:47)
[2016-06-14 08:11] LABS: BASOPHILS % (AUTO) 0.6 % (0.0-2.0); EOSINOPHILS % (AUTO) 0.7 % (0.0-3.0); LYMPHOCYTES % (AUTO) 13.9 % (20.0-45.0); MEAN CORPUSCULAR HEMOGLOBIN 30.2 PG (27.0-31.0); MEAN CORPUSCULAR HGB CONC 32.4 G/DL (32.0-36.0); MEAN CORPUSCULAR VOLUME 93 FL (80-99); MEAN PLATELET VOLUME 9.5 FL (6.5-10.1); MONOCYTES % (AUTO) 8.5 % (1.0-10.0); NEUTROPHILS % (AUTO) 76.4 % (45.0-75.0); PLATELET COUNT 126 K/UL (150-450); RED BLOOD COUNT 4.15 M/UL (4.20-5.40); RED CELL DISTRIBUTION WIDTH 17.9 % (11.6-14.8); WHITE BLOOD COUNT 8.4 K/UL (4.8-10.8)
[2016-06-14 08:29] LABS: ALANINE AMINOTRANSFERASE 15 U/L (3-33); ALBUMIN/GLOBULIN RATIO 0.5 (1.0-2.7); ANION GAP 14 (5-15); ASPARTATE AMINO TRANSFERASE 29 U/L (5-40); CALCIUM 8.1 mg/dL (8.6-10.2); CARBON DIOXIDE 29 mEQ/L (20-30); CHLORIDE 93 mEQ/L (98-107); GLOMERULAR FILTRATION RATE > 60 mL/min (>60); HEMOLYSIS 4; MAGNESIUM 1.9 mg/dL (1.7-2.5); PHOSPHORUS 3.6 mg/dL (2.5-4.8); POTASSIUM 3.1 mEQ/L (3.4-4.9); SODIUM 136 mEQ/L (135-145); TOTAL PROTEIN 6.7 g/dL (6.6-8.7)
--- NOTE | 2016-06-14 13:08 | Infectious Diseases Prog Note ---
Assessment/Plan Assessment/Plan A: The patient is a 55-year-old female Pneumonia CT: left lung consolidation and right infiltrate. Low-grade fever HIV Pt now admits to have HIV CD4 ( high ) and VL < 20 ) , does not recall her HIV meds LACosis HTN PLAN: cont on IV cefepime and add Zithromax d# 3 / 5 Monitor blood culture Monitor sputum culture Monitor chest x-ray Monitor CBC Monitor BMP ,LAC ddsdfsdf pt has not eloisa her meds list ( including HIV meds) Subjective Constitutional: Denies: anorexia, chills, drenching sweats, fatigue, fever, no symptoms, other Allergies: Coded Allergies: No Known Allergies (Unverified , 12/09/13) Objective Vital Signs Last 24 Hour Vital Signs Date Time Temp Pulse Resp B/P Pulse Ox O2 Delivery O2 Flow Rate FiO2 06/14/16 12:09 99.7 96 20 108/74 93 Room Air 06/14/16 09:00 91 99/63 06/14/16 08:00 99.0 91 20 99/63 93 Nasal Cannula 2.0 06/14/16 07:49 83 20 95 Nasal Cannula 2.0 28 06/14/16 07:39 93 20 93 Nasal Cannula 2.0 28 06/14/16 04:00 99.7 21 110/71 90 Room Air 06/14/16 01:46 96 06/14/16 00:51 98.4 96 20 99/66 90 Nasal Cannula 2.0 06/14/16 00:50 28 06/14/16 00:49 87 20 92 Nasal Cannula 2.0 28 06/14/16 00:00 Room Air 06/14/16 00:00 Room Air 06/13/16 19:12 Room Air 06/13/16 19:12 Room Air 06/13/16 19:00 97.7 100 20 115/77 96 06/13/16 16:00 98.1 97 20 98/63 Room Air 06/13/16 13:00 65 14 100 Room Air 21 Height (Feet): 5 Height (Inches): 9.00 Weight (Pounds): 170 HEENT: anicteric Respiratory/Chest: normal breath sounds Cardiovascular: regular rhythm Abdomen: non distended Microbiology Date/Time Source Procedure Growth Status 06/11/16 16:20 Blood Blood Culture - Preliminary NO GROWTH AFTER 48 HOURS Resulted 06/11/16 16:05 Blood Blood Culture - Preliminary NO GROWTH AFTER 48 HOURS Resulted Laboratory Tests Test 06/14/16 06:55 White Blood Count 8.4 K/UL (4.8-10.8) Red Blood Count 4.15 M/UL (4.20-5.40) L Hemoglobin 12.5 G/DL (12.0-16.0) Hematocrit 38.7 % (37.0-47.0) Mean Corpuscular Volume 93 FL (80-99) Mean Corpuscular Hemoglobin 30.2 PG (27.0-31.0) Mean Corpuscular Hemoglobin Concent 32.4 G/DL (32.0-36.0) Red Cell Distribution Width 17.9 % (11.6-14.8) H Platelet Count 126 K/UL (150-450) L Mean Platelet Volume 9.5 FL (6.5-10.1) Neutrophils (%) (Auto) 76.4 % (45.0-75.0) H Lymphocytes (%) (Auto) 13.9 % (20.0-45.0) L Monocytes (%) (Auto) 8.5 % (1.0-10.0) Eosinophils (%) (Auto) 0.7 % (0.0-3.0) Basophils (%) (Auto) 0.6 % (0.0-2.0) Sodium Level 136 mEQ/L (135-145) Potassium Level 3.1 mEQ/L (3.4-4.9) L Chloride Level 93 mEQ/L (98-107) L Carbon Dioxide Level 29 mEQ/L (20-30) Anion Gap 14 (5-15) Blood Urea Nitrogen 8 mg/dL (7-23) Creatinine 1.0 mg/dL (0.5-0.9) H Estimat Glomerular Filtration Rate > 60 mL/min (>60) Glucose Level 93 mg/dL (74-106) Calcium Level 8.1 mg/dL (8.6-10.2) L Phosphorus Level 3.6 mg/dL (2.5-4.8) Magnesium Level 1.9 mg/dL (1.7-2.5) Total Bilirubin 0.6 mg/dL (0.0-1.2) Aspartate Amino Transf (AST/SGOT) 29 U/L (5-40) Alanine Aminotransferase (ALT/SGPT) 15 U/L (3-33) Alkaline Phosphatase 152 U/L (35-104) H Total Protein 6.7 g/dL (6.6-8.7) Albumin 2.5 g/dL (3.5-5.2) L Globulin 4.2 g/dL Albumin/Globulin Ratio 0.5 (1.0-2.7) L Current Medications Medications (Trade) Dose Ordered Sig/[place] Route PRN Reason Start Time Stop Time Status Last Admin Dose Admin Acetaminophen (Tylenol) 650 mg Q4H PRN ORAL Fever/Headache/Mild Pain 06/12/16 22:30 07/12/16 22:29 Acetaminophen/ Hydrocodone Bitart ([place] 10/325) 1 ea Q4H PRN ORAL Pain Scale (6-10) 06/13/16 00:00 06/20/16 00:00 Al Hydroxide/Mg Hydroxide (Mylanta II) 30 ml Q6H PRN ORAL dyspepsia 06/12/16 22:30 07/12/16 22:29 Albuterol/ Ipratropium (DuoNeb 0.5-3(2.5)mg/3ml) 3 ml Q4H PRN HHN Shortness of Breath 06/13/16 01:00 06/18/16 00:59 06/14/16 00:49 Albuterol/ Ipratropium (DuoNeb 0.5-3(2.5)mg/3ml) 3 ml Q6HRT HHN 06/13/16 01:00 06/18/16 00:59 06/14/16 07:39 Azithromycin 500 mg/Dextrose 250 ml @ 250 mls/hr Q24HRS IV 06/13/16 14:00 06/18/16 14:01 06/13/16 14:00 Cefepime HCl/ Sodium Chloride (Maxipime/Sodium Chloride 50ml bag) 50 ml @ 100 mls/hr EVERY 12 HOURS IV 06/13/16 09:00 06/20/16 08:59 06/14/16 09:59 Nifedipine (Procardia XL) 60 mg DAILY ORAL 06/13/16 09:00 07/13/16 08:59 Nitroglycerin (Ntg) 0.4 mg Q5M PRN SL Prn Chest Pain 06/12/16 22:20 07/12/16 22:19 Ondansetron HCl (Zofran) 4 mg Q6H PRN IVP Nausea & Vomiting 06/12/16 22:30 07/12/16 22:29 Polyethylene Glycol (Miralax) 17 gm DAILYPRN PRN ORAL Constipation 06/12/16 22:30 07/12/16 22:29 Promethazine HCl/ Codeine (Phenergan with Codeine) 5 ml Q4H PRN ORAL For Cough 06/12/16 22:30 07/12/16 22:29 06/14/16 10:59 Temazepam (Restoril) 15 mg HSPRN PRN ORAL Insomnia 06/12/16 22:30 06/19/16 22:29 JORGE DYE M.D. Jun 14, 2016 13:07
--- NOTE | 2016-06-14 14:39 | Pulmonology Progress Note ---
Assessment/Plan Problems: (1) Bilateral pneumonia (2) Mediastinal lymphadenopathy (3) Hyponatremia (4) Portal hypertension (5) HTN (hypertension) Assessment/Plan continue antibiotics check sputum check LDH HIV screening d/w dr [place] Subjective ROS Limited/Unobtainable: No Constitutional: Reports: no symptoms HEENT: Repors: no symptoms Respiratory: Reports: no symptoms Cardiovascular: Reports: no symptoms Allergies: Coded Allergies: No Known Allergies (Unverified , 12/09/13) Objective Last 24 Hour Vital Signs Date Time Temp Pulse Resp B/P Pulse Ox O2 Delivery O2 Flow Rate FiO2 06/14/16 13:40 65 14 100 Nasal Cannula 2.0 06/14/16 12:09 99.7 96 20 108/74 93 Room Air 06/14/16 09:00 91 99/63 06/14/16 08:00 99.0 91 20 99/63 93 Nasal Cannula 2.0 06/14/16 07:49 83 20 95 Nasal Cannula 2.0 06/14/16 07:39 93 20 93 Nasal Cannula 2.0 06/14/16 04:00 99.7 21 110/71 90 Room Air 06/14/16 01:46 96 06/14/16 00:51 98.4 96 20 99/66 90 Nasal Cannula 2.0 06/14/16 00:50 28 06/14/16 00:49 87 20 92 Nasal Cannula 2.0 06/14/16 00:00 Room Air 06/14/16 00:00 Room Air 06/13/16 19:12 Room Air 06/13/16 19:12 Room Air 06/13/16 19:00 97.7 100 20 115/77 96 06/13/16 16:00 98.1 97 20 98/63 Room Air Intake and Output 06/13/16 06/14/16 19:00 07:00 # Voids 2 9 General Appearance: WD/WN HEENT: atraumatic Respiratory/Chest: chest wall non-tender, lungs clear Breasts: no masses Cardiovascular: normal rate Abdomen: normal bowel sounds, soft, non tender Genitourinary: normal external genitalia Extremities: no cyanosis Skin: no rash Microbiology Date/Time Source Procedure Growth Status 06/11/16 16:20 Blood Blood Culture - Preliminary NO GROWTH AFTER 48 HOURS Resulted 06/11/16 16:05 Blood Blood Culture - Preliminary NO GROWTH AFTER 48 HOURS Resulted Laboratory Tests 06/14/16 06:55: White Blood Count 8.4, Red Blood Count 4.15L, Hemoglobin 12.5, Hematocrit 38.7, Mean Corpuscular Volume 93, Mean Corpuscular Hemoglobin 30.2, Mean Corpuscular Hemoglobin Concent 32.4, Red Cell Distribution Width 17.9H, Platelet Count 126L , Mean Platelet Volume 9.5, Neutrophils (%) (Auto) 76.4H, Lymphocytes (%) (Auto ) 13.9L, Monocytes (%) (Auto) 8.5, Eosinophils (%) (Auto) 0.7, Basophils (%) ( Auto) 0.6, Sodium Level 136, Potassium Level 3.1L, Chloride Level 93L, Carbon Dioxide Level 29, Anion Gap 14, Blood Urea Nitrogen 8, Creatinine 1.0H, Estimat Glomerular Filtration Rate > 60, Glucose Level 93, Calcium Level 8.1L, Phosphorus Level 3.6, Magnesium Level 1.9, Total Bilirubin 0.6, Aspartate Amino Transf (AST/SGOT) 29, Alanine Aminotransferase (ALT/SGPT) 15, Alkaline Phosphatase 152H, Total Protein 6.7, Albumin 2.5L, Globulin 4.2, Albumin/ Globulin Ratio 0.5L Current Medications Medications (Trade) Dose Ordered Sig/[place] Route PRN Reason Start Time Stop Time Status Last Admin Dose Admin Acetaminophen (Tylenol) 650 mg Q4H PRN ORAL Fever/Headache/Mild Pain 06/12/16 22:30 07/12/16 22:29 Acetaminophen/ Hydrocodone Bitart ([place] 10/325) 1 ea Q4H PRN ORAL Pain Scale (6-10) 06/13/16 00:00 06/20/16 00:00 Al Hydroxide/Mg Hydroxide (Mylanta II) 30 ml Q6H PRN ORAL dyspepsia 06/12/16 22:30 07/12/16 22:29 Albuterol/ Ipratropium (DuoNeb 0.5-3(2.5)mg/3ml) 3 ml Q4H PRN HHN Shortness of Breath 06/13/16 01:00 06/18/16 00:59 06/14/16 00:49 Albuterol/ Ipratropium (DuoNeb 0.5-3(2.5)mg/3ml) 3 ml Q6HRT HHN 06/13/16 01:00 06/18/16 00:59 06/14/16 13:40 Azithromycin 500 mg/Dextrose 250 ml @ 250 mls/hr Q24HRS IV 06/13/16 14:00 06/18/16 14:01 06/13/16 14:00 Cefepime HCl/ Sodium Chloride (Maxipime/Sodium Chloride 50ml bag) 50 ml @ 100 mls/hr EVERY 12 HOURS IV 06/13/16 09:00 06/20/16 08:59 06/14/16 09:59 Nifedipine (Procardia XL) 60 mg DAILY ORAL 06/13/16 09:00 07/13/16 08:59 Nitroglycerin (Ntg) 0.4 mg Q5M PRN SL Prn Chest Pain 06/12/16 22:20 07/12/16 22:19 Ondansetron HCl (Zofran) 4 mg Q6H PRN IVP Nausea & Vomiting 06/12/16 22:30 07/12/16 22:29 Polyethylene Glycol (Miralax) 17 gm DAILYPRN PRN ORAL Constipation 06/12/16 22:30 07/12/16 22:29 Promethazine HCl/ Codeine (Phenergan with Codeine) 5 ml Q4H PRN ORAL For Cough 06/12/16 22:30 07/12/16 22:29 06/14/16 10:59 Temazepam (Restoril) 15 mg HSPRN PRN ORAL Insomnia 06/12/16 22:30 06/19/16 22:29 Tuberculin PPD (Tubersol (PPD)) 0.1 ml ONCE ONCE IDERMAL 06/14/16 15:00 06/14/16 15:01 JAD BYNUM Jun 14, 2016 14:39
[2016-06-14] MEDS ORDERED: PPD Tuberculin Skin Test 5TU IDERMAL ONE (15:00)
[2016-06-15] MEDS: DuoNeb 0.5-3(2.5)mg/3ml neb HHN SCH ×4 (01:27→19:40)
[2016-06-15 04:27] VITALS: BP 110/73
[2016-06-15 07:35] LABS: BASOPHILS % (AUTO) 0.9 % (0.0-2.0); EOSINOPHILS % (AUTO) 0.8 % (0.0-3.0); LYMPHOCYTES % (AUTO) 20.7 % (20.0-45.0); MEAN CORPUSCULAR HEMOGLOBIN 29.9 PG (27.0-31.0); MEAN CORPUSCULAR HGB CONC 32.3 G/DL (32.0-36.0); MEAN CORPUSCULAR VOLUME 93 FL (80-99); MEAN PLATELET VOLUME 8.3 FL (6.5-10.1); NEUTROPHILS % (AUTO) 66.7 % (45.0-75.0); PLATELET COUNT 162 K/UL (150-450); RED CELL DISTRIBUTION WIDTH 18.1 % (11.6-14.8); WHITE BLOOD COUNT 6.7 K/UL (4.8-10.8)
[2016-06-15 07:44] LABS: INR 1.2 (0.9-1.1); PROTHROMBIN TIME 11.8 SEC (9.30-11.50)
[2016-06-15 08:00] VITALS: BP 105/68
[2016-06-15 08:03] LABS: ALANINE AMINOTRANSFERASE 12 U/L (3-33); ALBUMIN/GLOBULIN RATIO 0.5 (1.0-2.7); ANION GAP 13 (5-15); ASPARTATE AMINO TRANSFERASE 27 U/L (5-40); CARBON DIOXIDE 30 mEQ/L (20-30); CHLORIDE 92 mEQ/L (98-107); CREATININE 1.1 mg/dL (0.5-0.9); GLOMERULAR FILTRATION RATE > 60 mL/min (>60); HEMOLYSIS 3; MAGNESIUM 2.3 mg/dL (1.7-2.5); PHOSPHORUS 4.2 mg/dL (2.5-4.8); POTASSIUM 3.3 mEQ/L (3.4-4.9); SODIUM 135 mEQ/L (135-145)
[2016-06-15 09:16] LABS: CA 125 47.7 U/mL (0.0-38.1); CA15-3 36.7 U/mL (0.0-25.0)
--- NOTE | 2016-06-15 10:50 | Infectious Diseases Prog Note ---
Assessment/Plan Assessment/Plan A: The patient is a 55-year-old female Pneumonia CT: left lung consolidation and right infiltrate. Low-grade fever x 1 HIV CD4 : P Pt now admits to have HIV CD4 ( high ) and VL < 20 ) , does not recall her HIV meds LACosis , SP HTN PLAN: cont on IV cefepime and add Zithromax d# 4 / 5 Monitor blood culture Monitor sputum culture Monitor chest x-ray Monitor CBC Monitor BMP Crypt , coccidio Ab, toxo Ab: P pt has not eloisa her meds list ( including HIV meds) Subjective Constitutional: Reports: fever, Denies: anorexia, chills, drenching sweats, fatigue, no symptoms, other Allergies: Coded Allergies: No Known Allergies (Unverified , 12/09/13) Objective Vital Signs Last 24 Hour Vital Signs Date Time Temp Pulse Resp B/P Pulse Ox O2 Delivery O2 Flow Rate FiO2 06/15/16 09:26 95 105/68 06/15/16 08:00 99.7 95 20 105/68 91 Nasal Cannula 2.0 06/15/16 04:27 97.2 89 19 110/73 93 Nasal Cannula 2.0 93 06/15/16 04:00 92 06/15/16 01:35 91 18 97 Nasal Cannula 3.0 32 06/15/16 01:27 88 24 94 Nasal Cannula 3.0 32 06/15/16 01:25 98.8 06/15/16 00:00 93 06/14/16 23:56 100.8 96 18 112/70 93 Nasal Cannula 2.0 93 06/14/16 20:00 99.0 101 20 102/63 Nasal Cannula 2.0 83 06/14/16 20:00 100 06/14/16 19:01 98 22 89 Nasal Cannula 4.0 36 06/14/16 18:47 104 24 74 Nasal Cannula 4.0 36 06/14/16 17:09 97 22 87 Nasal Cannula 2.0 28 06/14/16 16:56 100 22 85 Nasal Cannula 2.0 28 06/14/16 16:40 99.9 72 Nasal Cannula 2.0 06/14/16 16:00 97 06/14/16 16:00 99.9 100 22 111/70 Nasal Cannula 2.0 72 06/14/16 13:50 84 20 96 Nasal Cannula 2.0 28 06/14/16 13:40 65 14 100 Nasal Cannula 2.0 28 06/14/16 12:09 99.7 96 20 108/74 93 Room Air Height (Feet): 5 Height (Inches): 9.00 Weight (Pounds): 170 HEENT: atraumatic Respiratory/Chest: lungs clear Cardiovascular: normal rate Abdomen: soft, non tender, non distended Microbiology Date/Time Source Procedure Growth Status 06/14/16 17:00 Sputum Induced Gram Stain Pending Resulted 06/14/16 17:00 Sputum Induced Sputum Culture - Preliminary NO GROWTH Resulted Laboratory Tests Test 06/14/16 16:00 06/15/16 06:55 White Blood Count Pending 6.7 K/UL (4.8-10.8) Lymphocytes Pending CA 15-3 Antigen 36.7 U/mL (0.0-25.0) H CA 27.29 Pending CA 125 Antigen 47.7 U/mL (0.0-38.1) H Percent CD3 Cells Pending Absolute CD3 Count Pending Percent CD4 Cells Pending Absolute CD4 Count Pending T-Lymphocyte CD4/CD8 Ratio Pending Percent CD8 Cells Pending Absolute CD8 Count Pending Rapid Plasma Reagin Non reactive (Non Reactive) Coccidioides Antibody (Comp Fix) Pending Cryptococcus Antigen Pending Toxoplasma IgG Antibody Pending Toxoplasma IgM Antibody Pending Red Blood Count 4.00 M/UL (4.20-5.40) L Hemoglobin 12.0 G/DL (12.0-16.0) Hematocrit 37.0 % (37.0-47.0) Mean Corpuscular Volume 93 FL (80-99) Mean Corpuscular Hemoglobin 29.9 PG (27.0-31.0) Mean Corpuscular Hemoglobin Concent 32.3 G/DL (32.0-36.0) Red Cell Distribution Width 18.1 % (11.6-14.8) H Platelet Count 162 K/UL (150-450) Mean Platelet Volume 8.3 FL (6.5-10.1) Neutrophils (%) (Auto) 66.7 % (45.0-75.0) Lymphocytes (%) (Auto) 20.7 % (20.0-45.0) Monocytes (%) (Auto) 11.0 % (1.0-10.0) H Eosinophils (%) (Auto) 0.8 % (0.0-3.0) Basophils (%) (Auto) 0.9 % (0.0-2.0) Prothrombin Time 11.8 SEC (9.30-11.50) H Prothromb Time International Ratio 1.2 (0.9-1.1) H Activated Partial Thromboplast Time 32 SEC (23-33) Sodium Level 135 mEQ/L (135-145) Potassium Level 3.3 mEQ/L (3.4-4.9) L Chloride Level 92 mEQ/L (98-107) L Carbon Dioxide Level 30 mEQ/L (20-30) Anion Gap 13 (5-15) Blood Urea Nitrogen 8 mg/dL (7-23) Creatinine 1.1 mg/dL (0.5-0.9) H Estimat Glomerular Filtration Rate > 60 mL/min (>60) Glucose Level 98 mg/dL (74-106) Lactic Acid Level 1.90 mmol/L (0.66-2.22) Calcium Level 8.0 mg/dL (8.6-10.2) L Phosphorus Level 4.2 mg/dL (2.5-4.8) Magnesium Level 2.3 mg/dL (1.7-2.5) Total Bilirubin 0.6 mg/dL (0.0-1.2) Aspartate Amino Transf (AST/SGOT) 27 U/L (5-40) Alanine Aminotransferase (ALT/SGPT) 12 U/L (3-33) Alkaline Phosphatase 144 U/L (35-104) H Total Protein 7.0 g/dL (6.6-8.7) Albumin 2.4 g/dL (3.5-5.2) L Globulin 4.6 g/dL Albumin/Globulin Ratio 0.5 (1.0-2.7) L Current Medications Medications (Trade) Dose Ordered Sig/[place] Route PRN Reason Start Time Stop Time Status Last Admin Dose Admin Acetaminophen (Tylenol) 650 mg Q4H PRN ORAL Fever/Headache/Mild Pain 06/12/16 22:30 07/12/16 22:29 06/15/16 00:26 Acetaminophen/ Hydrocodone Bitart ([place] 10/325) 1 ea Q4H PRN ORAL Pain Scale (6-10) 06/13/16 00:00 06/20/16 00:00 Al Hydroxide/Mg Hydroxide (Mylanta II) 30 ml Q6H PRN ORAL dyspepsia 06/12/16 22:30 07/12/16 22:29 Albuterol/ Ipratropium (DuoNeb 0.5-3(2.5)mg/3ml) 3 ml Q4H PRN HHN Shortness of Breath 06/13/16 01:00 06/18/16 00:59 06/14/16 16:56 Albuterol/ Ipratropium (DuoNeb 0.5-3(2.5)mg/3ml) 3 ml Q6HRT HHN 06/13/16 01:00 06/18/16 00:59 06/15/16 07:30 Azithromycin 500 mg/Dextrose 250 ml @ 250 mls/hr Q24HRS IV 06/13/16 14:00 06/18/16 14:01 06/14/16 16:47 Cefepime HCl/ Sodium Chloride (Maxipime/Sodium Chloride 50ml bag) 50 ml @ 100 mls/hr EVERY 12 HOURS IV 06/13/16 09:00 06/20/16 08:59 06/15/16 10:43 Nifedipine (Procardia XL) 60 mg DAILY ORAL 06/13/16 09:00 07/13/16 08:59 06/15/16 09:26 Nitroglycerin (Ntg) 0.4 mg Q5M PRN SL Prn Chest Pain 06/12/16 22:20 07/12/16 22:19 Ondansetron HCl (Zofran) 4 mg Q6H PRN IVP Nausea & Vomiting 06/12/16 22:30 07/12/16 22:29 Polyethylene Glycol (Miralax) 17 gm DAILYPRN PRN ORAL Constipation 06/12/16 22:30 07/12/16 22:29 Promethazine HCl/ Codeine (Phenergan with Codeine) 5 ml Q4H PRN ORAL For Cough 06/12/16 22:30 07/12/16 22:29 06/14/16 21:11 Temazepam (Restoril) 15 mg HSPRN PRN ORAL Insomnia 06/12/16 22:30 06/19/16 22:29 JORGE DYE M.D. Jun 15, 2016 10:50
[2016-06-15 12:00] VITALS: BP 101/69
[2016-06-15] MEDS ORDERED: Tubing IV Secondary IV ONE (13:26)
--- NOTE | 2016-06-15 15:52 | Pulmonology Progress Note ---
Assessment/Plan Problems: (1) Bilateral pneumonia (2) Mediastinal lymphadenopathy (3) Hyponatremia (4) Portal hypertension (5) HTN (hypertension) Assessment/Plan continue antibiotics check sputum LDH is elevated HIV screening unusual pneumonia Positive tumor markers, ? significance Subjective Interval Events: still coghing Allergies: Coded Allergies: No Known Allergies (Unverified , 12/09/13) Objective Last 24 Hour Vital Signs Date Time Temp Pulse Resp B/P Pulse Ox O2 Delivery O2 Flow Rate FiO2 06/15/16 13:40 20 90 Nasal Cannula 5.0 06/15/16 12:00 97 06/15/16 12:00 99.6 96 20 101/69 93 Nasal Cannula 2.0 06/15/16 09:26 95 105/68 06/15/16 08:00 99.7 95 20 105/68 91 Nasal Cannula 2.0 06/15/16 08:00 93 06/15/16 04:27 97.2 89 19 110/73 93 Nasal Cannula 2.0 93 06/15/16 04:00 92 06/15/16 01:35 91 18 97 Nasal Cannula 3.0 32 06/15/16 01:27 88 24 94 Nasal Cannula 3.0 32 06/15/16 01:25 98.8 06/15/16 00:00 93 06/14/16 23:56 100.8 96 18 112/70 93 Nasal Cannula 2.0 93 06/14/16 20:00 99.0 101 20 102/63 Nasal Cannula 2.0 83 06/14/16 20:00 100 06/14/16 19:01 98 22 89 Nasal Cannula 4.0 36 06/14/16 18:47 104 24 74 Nasal Cannula 4.0 36 06/14/16 17:09 97 22 87 Nasal Cannula 2.0 28 06/14/16 16:56 100 22 85 Nasal Cannula 2.0 28 06/14/16 16:40 99.9 72 Nasal Cannula 2.0 06/14/16 16:00 97 06/14/16 16:00 99.9 100 22 111/70 Nasal Cannula 2.0 72 Intake and Output 06/14/16 06/15/16 19:00 07:00 Intake Total 360 ml 500 ml Balance 360 ml 500 ml Intake Oral 360 ml 500 ml # Voids 2 2 General Appearance: WD/WN HEENT: normocephalic, atraumatic Respiratory/Chest: chest wall non-tender, lungs clear Cardiovascular: normal peripheral pulses, normal rate Abdomen: normal bowel sounds, soft, non tender 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, no motor/sensory deficits Lymphatic: no neck adenopathy Microbiology Date/Time Source Procedure Growth Status 06/14/16 17:00 Sputum Induced Gram Stain - Final Resulted 06/14/16 17:00 Sputum Induced Sputum Culture - Preliminary NO GROWTH Resulted Laboratory Tests 06/14/16 16:00: White Blood Count [Pending], Lymphocytes [Pending], CA 15-3 Antigen 36.7H, CA 27.29 [Pending], CA 125 Antigen 47.7H, Percent CD3 Cells [Pending], Absolute CD3 Count [Pending], Percent CD4 Cells [Pending], Absolute CD4 Count [Pending], T-Lymphocyte CD4/CD8 Ratio [Pending], Percent CD8 Cells [Pending], Absolute CD8 Count [Pending], Rapid Plasma Reagin Non reactive, Coccidioides Antibody (Comp Fix) [Pending], Cryptococcus Antigen [Pending], Toxoplasma IgG Antibody [Pending ], Toxoplasma IgM Antibody [Pending] 06/15/16 06:55: White Blood Count 6.7, Red Blood Count 4.00L, Hemoglobin 12.0, Hematocrit 37.0, Mean Corpuscular Volume 93, Mean Corpuscular Hemoglobin 29.9, Mean Corpuscular Hemoglobin Concent 32.3, Red Cell Distribution Width 18.1H, Platelet Count 162, Mean Platelet Volume 8.3, Neutrophils (%) (Auto) 66.7, Lymphocytes (%) (Auto) 20.7, Monocytes (%) (Auto) 11.0H, Eosinophils (%) (Auto) 0.8, Basophils (%) ( Auto) 0.9, Prothrombin Time 11.8H, Prothromb Time International Ratio 1.2H, Activated Partial Thromboplast Time 32, Sodium Level 135, Potassium Level 3.3L, Chloride Level 92L, Carbon Dioxide Level 30, Anion Gap 13, Blood Urea Nitrogen 8 , Creatinine 1.1H, Estimat Glomerular Filtration Rate > 60, Glucose Level 98, Lactic Acid Level 1.90, Calcium Level 8.0L, Phosphorus Level 4.2, Magnesium Level 2.3, Total Bilirubin 0.6, Aspartate Amino Transf (AST/SGOT) 27, Alanine Aminotransferase (ALT/SGPT) 12, Alkaline Phosphatase 144H, Total Protein 7.0, Albumin 2.4L, Globulin 4.6, Albumin/Globulin Ratio 0.5L Current Medications Medications (Trade) Dose Ordered Sig/Benito Route PRN Reason Start Time Stop Time Status Last Admin Dose Admin Acetaminophen (Tylenol) 650 mg Q4H PRN ORAL Fever/Headache/Mild Pain 06/12/16 22:30 07/12/16 22:29 06/15/16 00:26 Acetaminophen/ Hydrocodone Bitart ([place] 10/325) 1 ea Q4H PRN ORAL Pain Scale (6-10) 06/13/16 00:00 06/20/16 00:00 Al Hydroxide/Mg Hydroxide (Mylanta II) 30 ml Q6H PRN ORAL dyspepsia 06/12/16 22:30 07/12/16 22:29 Albuterol/ Ipratropium (DuoNeb 0.5-3(2.5)mg/3ml) 3 ml Q4H PRN HHN Shortness of Breath 06/13/16 01:00 06/18/16 00:59 06/14/16 16:56 Albuterol/ Ipratropium (DuoNeb 0.5-3(2.5)mg/3ml) 3 ml Q6HRT HHN 06/13/16 01:00 06/18/16 00:59 06/15/16 13:30 Azithromycin 500 mg/Dextrose 250 ml @ 250 mls/hr Q24HRS IV 06/13/16 14:00 06/18/16 14:01 06/15/16 13:27 Cefepime HCl/ Sodium Chloride (Maxipime/Sodium Chloride 50ml bag) 50 ml @ 100 mls/hr EVERY 12 HOURS IV 06/13/16 09:00 06/20/16 08:59 06/15/16 10:43 Nifedipine (Procardia XL) 60 mg DAILY ORAL 06/13/16 09:00 07/13/16 08:59 06/15/16 09:26 Nitroglycerin (Ntg) 0.4 mg Q5M PRN SL Prn Chest Pain 06/12/16 22:20 07/12/16 22:19 Ondansetron HCl (Zofran) 4 mg Q6H PRN IVP Nausea & Vomiting 06/12/16 22:30 07/12/16 22:29 Polyethylene Glycol (Miralax) 17 gm DAILYPRN PRN ORAL Constipation 06/12/16 22:30 07/12/16 22:29 Promethazine HCl/ Codeine (Phenergan with Codeine) 5 ml Q4H PRN ORAL For Cough 06/12/16 22:30 07/12/16 22:29 06/14/16 21:11 Temazepam (Restoril) 15 mg HSPRN PRN ORAL Insomnia 06/12/16 22:30 06/19/16 22:29 JAD BYNUM Jun 15, 2016 15:52
[2016-06-15 16:00] VITALS: BP 95/61
[2016-06-15 17:08] LABS: CD3 ABSOLUTE 981 /uL (622-2402); CD4 ABSOLUTE 339 /uL (359-1519); CD8 ABSOLUTE 616 /uL (109-897); LYMPHOCYTES ABSOLUTE 1.4 x10E3/uL (0.7-3.1); LYMPHS 16 % (.); WBC 8.5 x10E3/uL (3.4-10.8)
[2016-06-15 20:00] VITALS: BP 109/72
[2016-06-15] MEDS: Promethazine/Codeine 5ml UD ORAL PRN (21:00)
[2016-06-16] VITALS: BP 102/65
[2016-06-16] MEDS: Promethazine/Codeine 5ml UD ORAL PRN ×2 (01:41→05:34)
[2016-06-16] MEDS: DuoNeb 0.5-3(2.5)mg/3ml neb HHN SCH ×4 (01:44→19:01)
[2016-06-16 04:00] VITALS: BP 101/64
[2016-06-16 04:08] LABS: TOXOPLASMA IGG ANTIBODY 4.3 IU/mL (0.0-7.1)
[2016-06-16 06:08] LABS: CA 27.29 64.6 U/mL (0.0-38.6)
[2016-06-16 08:07] VITALS: BP 96/60
--- NOTE | 2016-06-16 09:14 | Infectious Diseases Prog Note ---
Assessment/Plan Assessment/Plan A: The patient is a 55-year-old female Pneumonia - CT: left lung consolidation and right infiltrate. - pending: CrAg, coccidioides serology HIV+, on unknown cART - CD4 : 339(24.2%), reportedly undetectable LACosis SP Low-grade fever - resolved, no leukocytosis Mediastinal LAD Radiographic cirrhosis Negative RPR Toxoplasma IgG+ NKDA Full Code PLAN: cont on IV cefepime and add Zithromax d# 5 / 7 f/u final cultures Monitor chest x-ray - repeat Monitor CBC Monitor BMP Crypt , coccidio Ab, : P pt has not eloisa her meds list ( including HIV meds) Subjective Allergies: Coded Allergies: No Known Allergies (Unverified , 12/09/13) Subjective fevers resolved. breathing comfortable, cough improved still has not got med list Objective Vital Signs Last 24 Hour Vital Signs Date Time Temp Pulse Resp B/P Pulse Ox O2 Delivery O2 Flow Rate FiO2 06/16/16 08:28 89 96/60 06/16/16 08:07 98.8 89 20 96/60 93 Nasal Cannula 5.0 06/16/16 07:12 98 20 96 Nasal Cannula 5.0 40 06/16/16 07:06 92 20 90 Nasal Cannula 5.0 40 06/16/16 04:15 85 06/16/16 04:15 85 06/16/16 04:00 99.0 89 20 101/64 90 Nasal Cannula 3.0 06/16/16 01:45 96 20 92 Nasal Cannula 5.0 40 06/16/16 01:30 90 20 86 Nasal Cannula 5.0 40 06/16/16 00:00 99.0 87 18 102/65 93 Nasal Cannula 2.0 06/15/16 23:47 81 06/15/16 20:00 99.0 97 20 109/72 Nasal Cannula 2.0 06/15/16 20:00 95 06/15/16 19:48 99 20 94 Nasal Cannula 5.0 40 06/15/16 19:40 40 06/15/16 19:40 94 20 90 Nasal Cannula 5.0 40 06/15/16 19:11 20 93 Nasal Cannula 5.0 06/15/16 16:00 98.2 103 20 95/61 94 Nasal Cannula 06/15/16 16:00 103 06/15/16 13:40 102 22 96 Nasal Cannula 3.0 32 06/15/16 13:40 20 90 Nasal Cannula 5.0 06/15/16 13:30 102 22 91 Nasal Cannula 5.0 40 06/15/16 12:00 97 06/15/16 12:00 99.6 96 20 101/69 93 Nasal Cannula 2.0 06/15/16 09:26 95 105/68 Height (Feet): 5 Height (Inches): 9.00 Weight (Pounds): 170 General Appearance: no acute distress Respiratory/Chest: no respiratory distress Cardiovascular: normal rate, regular rhythm Abdomen: normal bowel sounds, soft, non tender, non distended Microbiology Date/Time Source Procedure Growth Status 06/14/16 17:00 Sputum Induced Gram Stain - Final Resulted 06/14/16 17:00 Sputum Induced Sputum Culture - Preliminary NO GROWTH AFTER 48 HOURS Resulted Current Medications Medications (Trade) Dose Ordered Sig/[place] Route PRN Reason Start Time Stop Time Status Last Admin Dose Admin Acetaminophen (Tylenol) 650 mg Q4H PRN ORAL Fever/Headache/Mild Pain 06/12/16 22:30 07/12/16 22:29 06/15/16 00:26 Acetaminophen/ Hydrocodone Bitart ([place] 10/325) 1 ea Q4H PRN ORAL Pain Scale (6-10) 06/13/16 00:00 06/20/16 00:00 Al Hydroxide/Mg Hydroxide (Mylanta II) 30 ml Q6H PRN ORAL dyspepsia 06/12/16 22:30 07/12/16 22:29 Albuterol/ Ipratropium (DuoNeb 0.5-3(2.5)mg/3ml) 3 ml Q4H PRN HHN Shortness of Breath 06/13/16 01:00 06/18/16 00:59 06/14/16 16:56 Albuterol/ Ipratropium (DuoNeb 0.5-3(2.5)mg/3ml) 3 ml Q6HRT HHN 06/13/16 01:00 06/18/16 00:59 06/16/16 07:05 Azithromycin 500 mg/Dextrose 250 ml @ 250 mls/hr Q24HRS IV 06/13/16 14:00 06/18/16 14:01 06/15/16 13:27 Cefepime HCl/ Sodium Chloride (Maxipime/Sodium Chloride 50ml bag) 50 ml @ 100 mls/hr EVERY 12 HOURS IV 06/13/16 09:00 06/20/16 08:59 06/16/16 08:28 Nifedipine (Procardia XL) 60 mg DAILY ORAL 06/13/16 09:00 07/13/16 08:59 06/16/16 08:28 Nitroglycerin (Ntg) 0.4 mg Q5M PRN SL Prn Chest Pain 06/12/16 22:20 07/12/16 22:19 Ondansetron HCl (Zofran) 4 mg Q6H PRN IVP Nausea & Vomiting 06/12/16 22:30 07/12/16 22:29 Polyethylene Glycol (Miralax) 17 gm DAILYPRN PRN ORAL Constipation 06/12/16 22:30 07/12/16 22:29 Promethazine HCl/ Codeine (Phenergan with Codeine) 5 ml Q4H PRN ORAL For Cough 06/12/16 22:30 07/12/16 22:29 06/16/16 05:34 Temazepam (Restoril) 15 mg HSPRN PRN ORAL Insomnia 06/12/16 22:30 06/19/16 22:29 ESDRAS PETERS Jun 16, 2016 09:14
[2016-06-16 11:55] VITALS: BP 116/69
[2016-06-16 13:09] LABS: CRYPTOCOCCAL ANTIGEN SERUM Negative (Negative)
--- NOTE | 2016-06-16 13:24 | Pulmonology Progress Note ---
Assessment/Plan Problems: (1) Bilateral pneumonia (2) Mediastinal lymphadenopathy (3) Hyponatremia (4) Portal hypertension (5) HTN (hypertension) Assessment/Plan improving afebrile DC4 count noted continue antibiotics check sputum LDH is elevated unusual pneumonia Positive tumor markers, ? significance Subjective ROS Limited/Unobtainable: No Constitutional: Reports: no symptoms HEENT: Repors: no symptoms Respiratory: Reports: no symptoms Cardiovascular: Reports: no symptoms Gastrointestinal/Abdominal: Reports: no symptoms Allergies: Coded Allergies: No Known Allergies (Unverified , 12/09/13) Objective Last 24 Hour Vital Signs Date Time Temp Pulse Resp B/P Pulse Ox O2 Delivery O2 Flow Rate FiO2 06/16/16 12:08 90 20 96 Nasal Cannula 5.0 40 06/16/16 12:00 85 06/16/16 12:00 88 20 90 Nasal Cannula 5.0 40 06/16/16 11:55 99.0 88 20 116/69 93 Nasal Cannula 5.0 06/16/16 08:28 89 96/60 06/16/16 08:07 98.8 89 20 96/60 93 Nasal Cannula 5.0 06/16/16 08:00 92 06/16/16 07:12 98 20 96 Nasal Cannula 5.0 40 06/16/16 07:06 92 20 90 Nasal Cannula 5.0 40 06/16/16 04:15 85 06/16/16 04:15 85 06/16/16 04:00 99.0 89 20 101/64 90 Nasal Cannula 3.0 06/16/16 01:45 96 20 92 Nasal Cannula 5.0 40 06/16/16 01:30 90 20 86 Nasal Cannula 5.0 40 06/16/16 00:00 99.0 87 18 102/65 93 Nasal Cannula 2.0 06/15/16 23:47 81 06/15/16 20:00 99.0 97 20 109/72 Nasal Cannula 2.0 06/15/16 20:00 95 06/15/16 19:48 99 20 94 Nasal Cannula 5.0 40 06/15/16 19:40 40 06/15/16 19:40 94 20 90 Nasal Cannula 5.0 40 06/15/16 19:11 20 93 Nasal Cannula 5.0 06/15/16 16:00 98.2 103 20 95/61 94 Nasal Cannula 06/15/16 16:00 103 12/30/16 13:40 102 22 96 Nasal Cannula 3.0 32 06/15/16 13:40 20 90 Nasal Cannula 5.0 06/15/16 13:30 102 22 91 Nasal Cannula 5.0 40 Intake and Output 06/15/16 06/16/16 19:00 07:00 Intake Total 830 ml 640 ml Balance 830 ml 640 ml Intake Oral 480 ml 540 ml IV Total 350 ml 100 ml # Voids 3 2 # Bowel Movements 1 General Appearance: WD/WN HEENT: normocephalic Respiratory/Chest: chest wall non-tender, lungs clear Cardiovascular: normal peripheral pulses, normal rate Abdomen: normal bowel sounds, soft, non tender Microbiology Date/Time Source Procedure Growth Status 06/14/16 17:00 Sputum Induced Gram Stain - Final Resulted 06/14/16 17:00 Sputum Induced Sputum Culture - Preliminary NO GROWTH AFTER 48 HOURS Resulted Current Medications Medications (Trade) Dose Ordered Sig/[place] Route PRN Reason Start Time Stop Time Status Last Admin Dose Admin Acetaminophen (Tylenol) 650 mg Q4H PRN ORAL Fever/Headache/Mild Pain 06/12/16 22:30 07/12/16 22:29 06/15/16 00:26 Acetaminophen/ Hydrocodone Bitart ([place] 10/325) 1 ea Q4H PRN ORAL Pain Scale (6-10) 06/13/16 00:00 06/20/16 00:00 Al Hydroxide/Mg Hydroxide (Mylanta II) 30 ml Q6H PRN ORAL dyspepsia 06/12/16 22:30 07/12/16 22:29 Albuterol/ Ipratropium (DuoNeb 0.5-3(2.5)mg/3ml) 3 ml Q4H PRN HHN Shortness of Breath 06/13/16 01:00 06/18/16 00:59 06/14/16 16:56 Albuterol/ Ipratropium (DuoNeb 0.5-3(2.5)mg/3ml) 3 ml Q6HRT HHN 06/13/16 01:00 06/18/16 00:59 06/16/16 12:09 Azithromycin 500 mg/Dextrose 250 ml @ 250 mls/hr Q24HRS IV 06/13/16 14:00 1/2/17 14:01 06/15/16 13:27 Cefepime HCl/ Sodium Chloride (Maxipime/Sodium Chloride 50ml bag) 50 ml @ 100 mls/hr EVERY 12 HOURS IV 06/13/16 09:00 06/20/16 08:59 06/16/16 08:28 Nifedipine (Procardia XL) 60 mg DAILY ORAL 06/13/16 09:00 07/13/16 08:59 06/16/16 08:28 Nitroglycerin (Ntg) 0.4 mg Q5M PRN SL Prn Chest Pain 06/12/16 22:20 07/12/16 22:19 Ondansetron HCl (Zofran) 4 mg Q6H PRN IVP Nausea & Vomiting 06/12/16 22:30 07/12/16 22:29 Polyethylene Glycol (Miralax) 17 gm DAILYPRN PRN ORAL Constipation 06/12/16 22:30 07/12/16 22:29 Promethazine HCl/ Codeine (Phenergan with Codeine) 5 ml Q4H PRN ORAL For Cough 06/12/16 22:30 07/12/16 22:29 06/16/16 05:34 Temazepam (Restoril) 15 mg HSPRN PRN ORAL Insomnia 06/12/16 22:30 06/19/16 22:29 JAD BYNUM Jun 16, 2016 13:24
--- NOTE | 2016-06-16 14:34 | Diagnostic Imaging Report ---
Indication: Pain Technique: Two views of the chest Comparison: One view chest dated 12/30/2009 Findings: There is a moderate size left-sided pleural effusion. There are bilateral basilar interstitial and alveolar infiltrates. The upper lungs are clear. Heart size is normal. Impression: Bilateral basilar infiltrates, suspicious for pneumonia Left-sided pleural effusion
--- NOTE | 2016-06-16 14:36 | Diagnostic Imaging Report ---
Indications: Abdominal pain, nausea, elevated renal function tests Technique: Transabdominal real-time grayscale and duplex Doppler imaging of the upper abdomen and retroperitoneum was performed. Findings: Comparison: None. Liver 18 cm, heterogeneous parenchymal echogenicity, questionable mild surface contour nodularity. No focal lesion identified.. Gallbladder unremarkable. No intraluminal stones or sludge. No mural thickening or adjacent fluid collections. Sonographic Kennedy sign not reported.. Bile ducts normal caliber. Common bile duct 6 mm. Pancreas visualized portions unremarkable. Spleen 14.5 cm. No focal lesion identified.. Right kidney unremarkable. Left kidney unremarkable. Proximal and mid abdominal aorta, intrahepatic portion of inferior vena cava patent, normal caliber. Distal bowel aorta obscured. Duplex Doppler imaging demonstrates antegrade flow in splenic, portal, hepatic veins. No ascites. IMPRESSION: Liver findings suggest chronic hepatocellular disease/cirrhosis Splenomegaly suggests portal hypertension
--- NOTE | 2016-06-16 14:37 | Diagnostic Imaging Report ---
Indication: DYSPNEA Technique: One view of the chest Comparison: 06/13/2016 Findings: Extensive dense consolidation is seen in both mid and lower lungs, unchanged on the right, slightly more extensive on the left. There is probably a small amount of pleural fluid on the left, unchanged Impression: Bilateral pulmonary edema or infiltrates, stable on the right, slightly worse on the left, over 2 days. Persistent small left pleural effusion
[2016-06-16] MEDS ORDERED: Nitroglycerin Subl 0.4mg tab (Bottle Of 25) SL PRN (15:30)
[2016-06-16 16:00] VITALS: BP 106/68
[2016-06-16] MEDS ORDERED: DuoNeb 0.5-3(2.5)mg/3ml neb HHN PRN (16:00)
[2016-06-16] MEDS ORDERED: Miralax 17gm pkt ORAL PRN (16:00)
[2016-06-16] MEDS ORDERED: Tubing IV Secondary IV ONE (16:41)
[2016-06-16] MEDS ORDERED: NS 275ml ONE (16:41)
[2016-06-16 20:00] VITALS: BP 100/68
[2016-06-17] VITALS: BP 99/62
[2016-06-17] MEDS: DuoNeb 0.5-3(2.5)mg/3ml neb HHN SCH ×4 (01:28→18:49)
[2016-06-17 04:00] VITALS: BP 96/62
[2016-06-17 07:58] LABS: BASOPHILS % (AUTO) 1.5 % (0.0-2.0); EOSINOPHILS % (AUTO) 1.4 % (0.0-3.0); LYMPHOCYTES % (AUTO) 18.6 % (20.0-45.0); MEAN CORPUSCULAR HEMOGLOBIN 30.2 PG (27.0-31.0); MEAN CORPUSCULAR HGB CONC 32.1 G/DL (32.0-36.0); MEAN CORPUSCULAR VOLUME 94 FL (80-99); MEAN PLATELET VOLUME 7.5 FL (6.5-10.1); NEUTROPHILS % (AUTO) 67.5 % (45.0-75.0); PLATELET COUNT 217 K/UL (150-450); RED BLOOD COUNT 3.81 M/UL (4.20-5.40); RED CELL DISTRIBUTION WIDTH 17.4 % (11.6-14.8); WHITE BLOOD COUNT 4.7 K/UL (4.8-10.8)
[2016-06-17 08:00] VITALS: BP 100/59
[2016-06-17 08:16] LABS: ALANINE AMINOTRANSFERASE 10 U/L (3-33); ANION GAP 9 (5-15); ASPARTATE AMINO TRANSFERASE 28 U/L (5-40); CALCIUM 7.9 mg/dL (8.6-10.2); CARBON DIOXIDE 32 mEQ/L (20-30); CHLORIDE 95 mEQ/L (98-107); CREATININE 0.8 mg/dL (0.5-0.9); GLOMERULAR FILTRATION RATE > 60 mL/min (>60); MAGNESIUM 2.4 mg/dL (1.7-2.5); PHOSPHORUS 2.9 mg/dL (2.5-4.8); POTASSIUM 3.7 mEQ/L (3.4-4.9); SODIUM 136 mEQ/L (135-145); TOTAL PROTEIN 6.6 g/dL (6.6-8.7)
[2016-06-17 08:17] LABS: ALBUMIN/GLOBULIN RATIO 0.5 (1.0-2.7); HEMOLYSIS 3
--- NOTE | 2016-06-17 08:34 | Infectious Diseases Prog Note ---
Assessment/Plan Assessment/Plan A: The patient is a 55-year-old female Pneumonia - SCx NRF - CXR 06/15: bilateral pulmonary edema or infiltrates, stable on the right , slightly worse on the left, over 2 days. Persistent small left pleural effusion - CT 06/11: left lung consolidation and right infiltrate. - pending: coccidioides serology - negative: CrAg HIV+, on unknown cART - CD4 : 339(24.2%), reportedly undetectable LACosis SP Low-grade fever - resolved, no leukocytosis Mediastinal LAD, elevated tumor markers Radiographic cirrhosis Negative RPR Toxoplasma IgG+ NKDA Full Code PLAN: cont on IV cefepime and add Zithromax d# 6 / 7-10 f/u final cultures Monitor chest x-ray Monitor CBC Monitor BMP coccidio Ab, : P pt has not brought her meds list ( including HIV meds) malignancy w/u per primary Subjective Allergies: Coded Allergies: No Known Allergies (Unverified , 12/09/13) Subjective fevers resolved. breathing comfortable, cough improved still has not got med list Objective Vital Signs Last 24 Hour Vital Signs Date Time Temp Pulse Resp B/P Pulse Ox O2 Delivery O2 Flow Rate FiO2 06/17/16 04:00 98.8 82 20 96/62 95 06/17/16 01:29 89 18 97 Nasal Cannula 4.0 36 06/17/16 01:10 89 20 92 Nasal Cannula 4.0 36 06/17/16 00:00 98.4 83 20 99/62 91 Nasal Cannula 3.0 06/16/16 20:00 98.1 96 20 100/68 94 Room Air 06/16/16 19:10 91 18 97 Nasal Cannula 3.0 32 06/16/16 19:02 85 20 91 Nasal Cannula 5.0 40 06/16/16 16:00 99.5 95 20 106/68 95 Nasal Cannula 5.0 06/16/16 12:08 90 20 96 Nasal Cannula 5.0 40 06/16/16 12:00 85 06/16/16 12:00 88 20 90 Nasal Cannula 5.0 40 06/16/16 11:55 99.0 88 20 116/69 93 Nasal Cannula 5.0 Height (Feet): 5 Height (Inches): 9.00 Weight (Pounds): 170 General Appearance: no acute distress Respiratory/Chest: decreased breath sounds Cardiovascular: normal rate, regular rhythm Abdomen: normal bowel sounds, soft, non tender, non distended Microbiology Date/Time Source Procedure Growth Status 06/14/16 17:00 Sputum Induced Gram Stain - Final Complete 06/14/16 17:00 Sputum Induced Sputum Culture - Final NORMAL UPPER RESPIRATORY [place] AT 48 ... Complete Laboratory Tests Test 06/17/16 06:50 White Blood Count 4.7 K/UL (4.8-10.8) L Red Blood Count 3.81 M/UL (4.20-5.40) L Hemoglobin 11.5 G/DL (12.0-16.0) L Hematocrit 35.9 % (37.0-47.0) L Mean Corpuscular Volume 94 FL (80-99) Mean Corpuscular Hemoglobin 30.2 PG (27.0-31.0) Mean Corpuscular Hemoglobin Concent 32.1 G/DL (32.0-36.0) Red Cell Distribution Width 17.4 % (11.6-14.8) H Platelet Count 217 K/UL (150-450) Mean Platelet Volume 7.5 FL (6.5-10.1) Neutrophils (%) (Auto) 67.5 % (45.0-75.0) Lymphocytes (%) (Auto) 18.6 % (20.0-45.0) L Monocytes (%) (Auto) 11.0 % (1.0-10.0) H Eosinophils (%) (Auto) 1.4 % (0.0-3.0) Basophils (%) (Auto) 1.5 % (0.0-2.0) Sodium Level 136 mEQ/L (135-145) Potassium Level 3.7 mEQ/L (3.4-4.9) Chloride Level 95 mEQ/L (98-107) L Carbon Dioxide Level 32 mEQ/L (20-30) H Anion Gap 9 (5-15) Blood Urea Nitrogen 6 mg/dL (7-23) L Creatinine 0.8 mg/dL (0.5-0.9) Estimat Glomerular Filtration Rate > 60 mL/min (>60) Glucose Level 100 mg/dL (74-106) Calcium Level 7.9 mg/dL (8.6-10.2) L Phosphorus Level 2.9 mg/dL (2.5-4.8) Magnesium Level 2.4 mg/dL (1.7-2.5) Total Bilirubin 0.5 mg/dL (0.0-1.2) Aspartate Amino Transf (AST/SGOT) 28 U/L (5-40) Alanine Aminotransferase (ALT/SGPT) 10 U/L (3-33) Alkaline Phosphatase 108 U/L (35-104) H Total Protein 6.6 g/dL (6.6-8.7) Albumin 2.2 g/dL (3.5-5.2) L Globulin 4.4 g/dL Albumin/Globulin Ratio 0.5 (1.0-2.7) L Current Medications Medications (Trade) Dose Ordered Sig/[place] Route PRN Reason Start Time Stop Time Status Last Admin Dose Admin Acetaminophen (Tylenol) 650 mg Q4H PRN ORAL Fever/Headache/Mild Pain 06/16/16 16:00 07/16/16 15:59 Acetaminophen/ Hydrocodone Bitart ([place] 10/325) 1 ea Q4H PRN ORAL Pain Scale (6-10) 06/16/16 16:00 06/23/16 15:59 Al Hydroxide/Mg Hydroxide (Mylanta II) 30 ml Q6H PRN ORAL dyspepsia 06/16/16 16:30 07/16/16 16:29 Albuterol/ Ipratropium (DuoNeb 0.5-3(2.5)mg/3ml) 3 ml Q4H PRN HHN Shortness of Breath 06/16/16 16:00 06/21/16 15:59 Albuterol/ Ipratropium (DuoNeb 0.5-3(2.5)mg/3ml) 3 ml Q6HRT HHN 06/16/16 19:00 06/21/16 18:59 06/17/16 01:28 Azithromycin 500 mg/Dextrose 250 ml @ 250 mls/hr Q24HRS IV 06/17/16 14:00 06/18/16 14:01 Cefepime HCl/ Sodium Chloride (Maxipime/Sodium Chloride 50ml bag) 50 ml @ 100 mls/hr EVERY 12 HOURS IV 06/16/16 21:00 06/18/16 20:59 06/16/16 20:41 Nifedipine (Procardia XL) 60 mg DAILY ORAL 06/17/16 09:00 07/17/16 08:59 Nitroglycerin (Ntg) 0.4 mg Q5M X 3 DOSES PRN SL Prn Chest Pain 06/16/16 15:30 07/16/16 15:29 Ondansetron HCl (Zofran) 4 mg Q6H PRN IVP Nausea & Vomiting 06/16/16 16:30 07/16/16 16:29 Polyethylene Glycol (Miralax) 17 gm DAILYPRN PRN ORAL Constipation 06/16/16 16:00 07/16/16 15:59 Promethazine HCl/ Codeine (Phenergan with Codeine) 5 ml Q4H PRN ORAL For Cough 06/16/16 16:00 07/16/16 15:59 Temazepam (Restoril) 15 mg HSPRN PRN ORAL Insomnia 06/16/16 16:30 06/23/16 16:29 ESDRAS PETERS Jun 17, 2016 08:34
[2016-06-17 12:00] VITALS: BP 106/65
[2016-06-17 16:00] VITALS: BP 96/58
--- NOTE | 2016-06-17 17:30 | Internal Med Progress Note ---
Subjective Date of Service: Jun 17, 2016 Physician Name HustonTal Attending Physician Gamal Soni Current Medications Medications (Trade) Dose Ordered Sig/Benito Route PRN Reason Start Time Stop Time Status Last Admin Dose Admin Acetaminophen (Tylenol) 650 mg Q4H PRN ORAL Fever/Headache/Mild Pain 06/16/16 16:00 07/16/16 15:59 Acetaminophen/ Hydrocodone Bitart ([place] 10/325) 1 ea Q4H PRN ORAL Pain Scale (6-10) 06/16/16 16:00 06/23/16 15:59 Al Hydroxide/Mg Hydroxide (Mylanta II) 30 ml Q6H PRN ORAL dyspepsia 06/16/16 16:30 07/16/16 16:29 Albuterol/ Ipratropium (DuoNeb 0.5-3(2.5)mg/3ml) 3 ml Q4H PRN HHN Shortness of Breath 06/16/16 16:00 06/21/16 15:59 Albuterol/ Ipratropium (DuoNeb 0.5-3(2.5)mg/3ml) 3 ml Q6HRT HHN 06/16/16 19:00 06/21/16 18:59 06/17/16 01:28 Azithromycin 500 mg/Dextrose 250 ml @ 250 mls/hr Q24HRS IV 06/17/16 14:00 06/18/16 14:01 06/17/16 14:10 Cefepime HCl/ Sodium Chloride (Maxipime/Sodium Chloride 50ml bag) 50 ml @ 100 mls/hr EVERY 12 HOURS IV 06/16/16 21:00 06/18/16 20:59 06/17/16 09:02 Nifedipine (Procardia XL) 60 mg DAILY ORAL 06/17/16 09:00 07/17/16 08:59 Nitroglycerin (Ntg) 0.4 mg Q5M X 3 DOSES PRN SL Prn Chest Pain 06/16/16 15:30 07/16/16 15:29 Ondansetron HCl (Zofran) 4 mg Q6H PRN IVP Nausea & Vomiting 06/16/16 16:30 07/16/16 16:29 Polyethylene Glycol (Miralax) 17 gm DAILYPRN PRN ORAL Constipation 06/16/16 16:00 07/16/16 15:59 Promethazine HCl/ Codeine (Phenergan with Codeine) 5 ml Q4H PRN ORAL For Cough 06/16/16 16:00 07/16/16 15:59 Temazepam (Restoril) 15 mg HSPRN PRN ORAL Insomnia 06/16/16 16:30 06/23/16 16:29 Allergies: Coded Allergies: No Known Allergies (Unverified , 12/09/13) ROS Limited/Unobtainable: No Constitutional: Reports: no symptoms HEENT: Reports: no symptoms Cardiovascular: Reports: no symptoms Respiratory: Reports: cough Gastrointestinal/Abdominal: Reports: no symptoms Genitourinary: Reports: no symptoms Neurologic/Psychiatric: Reports: no symptoms Subjective Cover for Int Med-Dr Soni Objective Last Vital Signs Date Time Temp Pulse Resp B/P Pulse Ox O2 Delivery O2 Flow Rate FiO2 06/17/16 12:03 96 18 Room Air 21 06/17/16 12:00 4.0 06/17/16 12:00 98.2 106/65 90 General Appearance: WD/WN, no apparent distress, alert EENT: PERRL/EOMI, normal ENT inspection Neck: non-tender, normal alignment, supple, normal inspection Cardiovascular: normal peripheral pulses, normal rate, regular rhythm, no gallop/murmur, no JVD Respiratory/Chest: chest wall non-tender, no accessory muscle use, crackles/ rales, rhonchi - bilaterally, expiratory wheezing Abdomen: normal bowel sounds, non tender, soft, no organomegaly, no mass Extremities: normal range of motion 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, no motor/sensory deficits Skin: normal pigmentation, warm/dry Laboratory Tests Test 06/17/16 06:50 White Blood Count 4.7 K/UL (4.8-10.8) L Red Blood Count 3.81 M/UL (4.20-5.40) L Hemoglobin 11.5 G/DL (12.0-16.0) L Hematocrit 35.9 % (37.0-47.0) L Mean Corpuscular Volume 94 FL (80-99) Mean Corpuscular Hemoglobin 30.2 PG (27.0-31.0) Mean Corpuscular Hemoglobin Concent 32.1 G/DL (32.0-36.0) Red Cell Distribution Width 17.4 % (11.6-14.8) H Platelet Count 217 K/UL (150-450) Mean Platelet Volume 7.5 FL (6.5-10.1) Neutrophils (%) (Auto) 67.5 % (45.0-75.0) Lymphocytes (%) (Auto) 18.6 % (20.0-45.0) L Monocytes (%) (Auto) 11.0 % (1.0-10.0) H Eosinophils (%) (Auto) 1.4 % (0.0-3.0) Basophils (%) (Auto) 1.5 % (0.0-2.0) Sodium Level 136 mEQ/L (135-145) Potassium Level 3.7 mEQ/L (3.4-4.9) Chloride Level 95 mEQ/L (98-107) L Carbon Dioxide Level 32 mEQ/L (20-30) H Anion Gap 9 (5-15) Blood Urea Nitrogen 6 mg/dL (7-23) L Creatinine 0.8 mg/dL (0.5-0.9) Estimat Glomerular Filtration Rate > 60 mL/min (>60) Glucose Level 100 mg/dL (74-106) Calcium Level 7.9 mg/dL (8.6-10.2) L Phosphorus Level 2.9 mg/dL (2.5-4.8) Magnesium Level 2.4 mg/dL (1.7-2.5) Total Bilirubin 0.5 mg/dL (0.0-1.2) Aspartate Amino Transf (AST/SGOT) 28 U/L (5-40) Alanine Aminotransferase (ALT/SGPT) 10 U/L (3-33) Alkaline Phosphatase 108 U/L (35-104) H Total Protein 6.6 g/dL (6.6-8.7) Albumin 2.2 g/dL (3.5-5.2) L Globulin 4.4 g/dL Albumin/Globulin Ratio 0.5 (1.0-2.7) L Intake and Output 06/16/16 06/17/16 19:00 07:00 Intake Total 590 ml 1290 ml Balance 590 ml 1290 ml Intake Oral 240 ml 1240 ml IV Total 350 ml 50 ml # Voids 1 2 Assessment/Plan Problem List: (1) HIV disease Assessment & Plan: See ID note. (2) Bilateral pneumonia Assessment & Plan: Cont cefepime and azithro (3) HTN (hypertension) Assessment & Plan: cont procardia (4) Hyponatremia Status: progressing TAL HUSTON Jun 17, 2016 17:30
[2016-06-17 20:00] VITALS: BP 110/62
[2016-06-18] VITALS: BP 96/66
[2016-06-18] MEDS: Promethazine/Codeine 5ml UD ORAL PRN ×2 (00:08→20:51)
[2016-06-18] MEDS: DuoNeb 0.5-3(2.5)mg/3ml neb HHN SCH ×4 (01:00→19:20)
[2016-06-18 04:00] VITALS: BP 100/69
[2016-06-18 06:43] LABS: BASOPHILS % (AUTO) 1.5 % (0.0-2.0); EOSINOPHILS % (AUTO) 2.1 % (0.0-3.0); LYMPHOCYTES % (AUTO) 21.2 % (20.0-45.0); MEAN CORPUSCULAR HEMOGLOBIN 29.3 PG (27.0-31.0); MEAN CORPUSCULAR HGB CONC 31.1 G/DL (32.0-36.0); MEAN CORPUSCULAR VOLUME 94 FL (80-99); MEAN PLATELET VOLUME 7.4 FL (6.5-10.1); MONOCYTES % (AUTO) 14.8 % (1.0-10.0); NEUTROPHILS % (AUTO) 60.4 % (45.0-75.0); PLATELET COUNT 308 K/UL (150-450); RED CELL DISTRIBUTION WIDTH 17.4 % (11.6-14.8); WHITE BLOOD COUNT 4.1 K/UL (4.8-10.8)
[2016-06-18 06:50] LABS: ANION GAP 10 (5-15); CALCIUM 8.1 mg/dL (8.6-10.2); CARBON DIOXIDE 32 mEQ/L (20-30); CHLORIDE 95 mEQ/L (98-107); CREATININE 0.7 mg/dL (0.5-0.9); GLOMERULAR FILTRATION RATE > 60 mL/min (>60); HEMOLYSIS 10; POTASSIUM 3.9 mEQ/L (3.4-4.9); SODIUM 137 mEQ/L (135-145)
[2016-06-18 08:00] VITALS: BP 103/45
--- NOTE | 2016-06-18 08:51 | Infectious Diseases Prog Note ---
Assessment/Plan Assessment/Plan A: The patient is a 55-year-old female Pneumonia - SCx NRF - CXR 06/15: bilateral pulmonary edema or infiltrates, stable on the right , slightly worse on the left, over 2 days. Persistent small left pleural effusion - CT 06/11: left lung consolidation and right infiltrate. - pending: coccidioides serology - negative: CrAg HIV+, on unknown cART - CD4 : 339(24.2%), reportedly undetectable LACosis SP Low-grade fever - resolved, no leukocytosis Mediastinal LAD, elevated tumor markers Radiographic cirrhosis Negative RPR Toxoplasma IgG+ NKDA Full Code PLAN: cont on IV cefepime and add Zithromax d# 7 / f/u final cultures Monitor chest x-ray - repeat AM Monitor CBC Monitor BMP coccidio Ab, : P pt has not brought her meds list ( including HIV meds) malignancy w/u per primary Subjective Allergies: Coded Allergies: No Known Allergies (Unverified , 12/09/13) Subjective fevers resolved. breathing comfortable, cough improved still has not got med list Objective Vital Signs Last 24 Hour Vital Signs Date Time Temp Pulse Resp B/P Pulse Ox O2 Delivery O2 Flow Rate FiO2 06/18/16 08:00 98.4 78 18 103/45 90 Nasal Cannula 2.0 06/18/16 04:00 97.7 76 20 100/69 93 Nasal Cannula 2.0 06/18/16 01:00 78 18 98 Nasal Cannula 2.0 28 06/18/16 00:00 98.2 78 18 96/66 93 Nasal Cannula 2.0 06/17/16 20:00 98.4 80 18 110/62 93 Nasal Cannula 2.0 06/17/16 18:59 82 18 98 Nasal Cannula 2.0 28 06/17/16 18:49 81 18 98 Nasal Cannula 2.0 28 06/17/16 16:00 98.4 81 20 96/58 87 Room Air 06/17/16 12:03 96 18 Room Air 21 06/17/16 12:00 Nasal Cannula 4.0 36 06/17/16 12:00 98.2 86 20 106/65 90 Room Air 06/17/16 09:00 82 96/62 Height (Feet): 5 Height (Inches): 9.00 Weight (Pounds): 170 General Appearance: no acute distress Respiratory/Chest: no respiratory distress, decreased breath sounds Cardiovascular: normal rate, regular rhythm Abdomen: normal bowel sounds, soft, non tender, non distended Laboratory Tests Test 06/18/16 05:15 White Blood Count 4.1 K/UL (4.8-10.8) L Red Blood Count 3.90 M/UL (4.20-5.40) L Hemoglobin 11.4 G/DL (12.0-16.0) L Hematocrit 36.8 % (37.0-47.0) L Mean Corpuscular Volume 94 FL (80-99) Mean Corpuscular Hemoglobin 29.3 PG (27.0-31.0) Mean Corpuscular Hemoglobin Concent 31.1 G/DL (32.0-36.0) L Red Cell Distribution Width 17.4 % (11.6-14.8) H Platelet Count 308 K/UL (150-450) Mean Platelet Volume 7.4 FL (6.5-10.1) Neutrophils (%) (Auto) 60.4 % (45.0-75.0) Lymphocytes (%) (Auto) 21.2 % (20.0-45.0) Monocytes (%) (Auto) 14.8 % (1.0-10.0) H Eosinophils (%) (Auto) 2.1 % (0.0-3.0) Basophils (%) (Auto) 1.5 % (0.0-2.0) Sodium Level 137 mEQ/L (135-145) Potassium Level 3.9 mEQ/L (3.4-4.9) Chloride Level 95 mEQ/L (98-107) L Carbon Dioxide Level 32 mEQ/L (20-30) H Anion Gap 10 (5-15) Blood Urea Nitrogen 5 mg/dL (7-23) L Creatinine 0.7 mg/dL (0.5-0.9) Estimat Glomerular Filtration Rate > 60 mL/min (>60) Glucose Level 97 mg/dL (74-106) Calcium Level 8.1 mg/dL (8.6-10.2) L Current Medications Medications (Trade) Dose Ordered Sig/Benito Route PRN Reason Start Time Stop Time Status Last Admin Dose Admin Acetaminophen (Tylenol) 650 mg Q4H PRN ORAL Fever/Headache/Mild Pain 06/16/16 16:00 07/16/16 15:59 Acetaminophen/ Hydrocodone Bitart ([place] 10/325) 1 ea Q4H PRN ORAL Pain Scale (6-10) 06/16/16 16:00 06/23/16 15:59 Al Hydroxide/Mg Hydroxide (Mylanta II) 30 ml Q6H PRN ORAL dyspepsia 06/16/16 16:30 07/16/16 16:29 Albuterol/ Ipratropium (DuoNeb 0.5-3(2.5)mg/3ml) 3 ml Q4H PRN HHN Shortness of Breath 06/16/16 16:00 06/21/16 15:59 Albuterol/ Ipratropium (DuoNeb 0.5-3(2.5)mg/3ml) 3 ml Q6HRT HHN 06/16/16 19:00 06/21/16 18:59 06/17/16 18:49 Azithromycin 500 mg/Dextrose 250 ml @ 250 mls/hr Q24HRS IV 06/17/16 14:00 06/18/16 14:01 06/17/16 14:10 Cefepime HCl/ Sodium Chloride (Maxipime/Sodium Chloride 50ml bag) 50 ml @ 100 mls/hr EVERY 12 HOURS IV 06/16/16 21:00 06/18/16 20:59 06/17/16 22:08 Nifedipine (Procardia XL) 60 mg DAILY ORAL 06/17/16 09:00 07/17/16 08:59 Nitroglycerin (Ntg) 0.4 mg Q5M X 3 DOSES PRN SL Prn Chest Pain 06/16/16 15:30 07/16/16 15:29 Ondansetron HCl (Zofran) 4 mg Q6H PRN IVP Nausea & Vomiting 06/16/16 16:30 07/16/16 16:29 Polyethylene Glycol (Miralax) 17 gm DAILYPRN PRN ORAL Constipation 06/16/16 16:00 07/16/16 15:59 Promethazine HCl/ Codeine (Phenergan with Codeine) 5 ml Q4H PRN ORAL For Cough 06/16/16 16:00 07/16/16 15:59 06/18/16 00:08 Temazepam (Restoril) 15 mg HSPRN PRN ORAL Insomnia 06/16/16 16:30 06/23/16 16:29 ESDRAS PETERS Jun 18, 2016 08:51
[2016-06-18 12:00] VITALS: BP 100/49
[2016-06-18 16:00] VITALS: BP 104/65
--- NOTE | 2016-06-18 16:33 | Pulmonology Progress Note ---
Assessment/Plan Problems: (1) Bilateral pneumonia Assessment & Plan: probably atypical pneumonia (2) Mediastinal lymphadenopathy (3) Hyponatremia (4) Portal hypertension (5) HTN (hypertension) Assessment/Plan improving clinically afebrile DC4 count noted continue antibiotics unusual pneumonia cxr noted from today, finding lagging clinically Subjective ROS Limited/Unobtainable: No Interval Events: improving, less cough Allergies: Coded Allergies: No Known Allergies (Unverified , 12/09/13) Objective Last 24 Hour Vital Signs Date Time Temp Pulse Resp B/P Pulse Ox O2 Delivery O2 Flow Rate FiO2 06/18/16 16:00 98.1 81 20 104/65 91 Room Air 06/18/16 13:36 82 18 97 Nasal Cannula 2.0 28 06/18/16 13:36 81 18 96 Nasal Cannula 2.0 28 06/18/16 12:00 98.2 82 18 100/49 90 Nasal Cannula 2.0 06/18/16 09:40 80 18 98 Nasal Cannula 2.0 28 06/18/16 09:40 79 18 98 Nasal Cannula 2.0 28 06/18/16 09:00 80 103/45 06/18/16 08:00 98.4 78 18 103/45 90 Nasal Cannula 2.0 06/18/16 04:00 97.7 76 20 100/69 93 Nasal Cannula 2.0 06/18/16 01:00 78 18 98 Nasal Cannula 2.0 28 06/18/16 00:00 98.2 78 18 96/66 93 Nasal Cannula 2.0 06/17/16 20:00 98.4 80 18 110/62 93 Nasal Cannula 2.0 06/17/16 18:59 82 18 98 Nasal Cannula 2.0 28 06/17/16 18:49 81 18 98 Nasal Cannula 2.0 28 Intake and Output 06/17/16 06/18/16 19:00 07:00 Intake Total 530 ml 800 ml Balance 530 ml 800 ml Intake Oral 480 ml 800 ml IV Total 50 ml # Voids 4 2 General Appearance: WD/WN HEENT: normocephalic, atraumatic Respiratory/Chest: chest wall non-tender, lungs clear Cardiovascular: normal peripheral pulses, normal rate Abdomen: normal bowel sounds, soft, non tender Extremities: no cyanosis, no clubbing 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, abnormal gait Lymphatic: no neck adenopathy Musculoskeletal: normal muscle bulk Laboratory Tests 06/18/16 05:15: White Blood Count 4.1L, Red Blood Count 3.90L, Hemoglobin 11.4L, Hematocrit 36.8L, Mean Corpuscular Volume 94, Mean Corpuscular Hemoglobin 29.3, Mean Corpuscular Hemoglobin Concent 31.1L, Red Cell Distribution Width 17.4H, Platelet Count 308, Mean Platelet Volume 7.4, Neutrophils (%) (Auto) 60.4, Lymphocytes (%) (Auto) 21.2, Monocytes (%) (Auto) 14.8H, Eosinophils (%) (Auto) 2.1, Basophils (%) (Auto) 1.5, Sodium Level 137, Potassium Level 3.9, Chloride Level 95L, Carbon Dioxide Level 32H, Anion Gap 10, Blood Urea Nitrogen 5L, Creatinine 0.7, Estimat Glomerular Filtration Rate > 60, Glucose Level 97, Calcium Level 8.1L Current Medications Medications (Trade) Dose Ordered Sig/Benito Route PRN Reason Start Time Stop Time Status Last Admin Dose Admin Acetaminophen (Tylenol) 650 mg Q4H PRN ORAL Fever/Headache/Mild Pain 06/16/16 16:00 07/16/16 15:59 Acetaminophen/ Hydrocodone Bitart ([place] 10/325) 1 ea Q4H PRN ORAL Pain Scale (6-10) 06/16/16 16:00 06/23/16 15:59 Al Hydroxide/Mg Hydroxide (Mylanta II) 30 ml Q6H PRN ORAL dyspepsia 06/16/16 16:30 07/16/16 16:29 Albuterol/ Ipratropium (DuoNeb 0.5-3(2.5)mg/3ml) 3 ml Q4H PRN HHN Shortness of Breath 06/16/16 16:00 06/21/16 15:59 Albuterol/ Ipratropium (DuoNeb 0.5-3(2.5)mg/3ml) 3 ml Q6HRT HHN 06/16/16 19:00 06/21/16 18:59 06/18/16 13:36 Levofloxacin (Levaquin) 750 mg DAILY ORAL 06/19/16 09:00 06/21/16 08:59 Nifedipine (Procardia XL) 60 mg DAILY ORAL 06/17/16 09:00 07/17/16 08:59 Nitroglycerin (Ntg) 0.4 mg Q5M X 3 DOSES PRN SL Prn Chest Pain 06/16/16 15:30 07/16/16 15:29 Ondansetron HCl (Zofran) 4 mg Q6H PRN IVP Nausea & Vomiting 06/16/16 16:30 07/16/16 16:29 Polyethylene Glycol (Miralax) 17 gm DAILYPRN PRN ORAL Constipation 06/16/16 16:00 07/16/16 15:59 Promethazine HCl/ Codeine (Phenergan with Codeine) 5 ml Q4H PRN ORAL For Cough 06/16/16 16:00 07/16/16 15:59 06/18/16 00:08 Temazepam (Restoril) 15 mg HSPRN PRN ORAL Insomnia 06/16/16 16:30 06/23/16 16:29 JAD BYNUM Jun 18, 2016 16:33
[2016-06-18 19:00] VITALS: BP 107/72
[2016-06-19] VITALS: BP 104/69
[2016-06-19] MEDS: DuoNeb 0.5-3(2.5)mg/3ml neb HHN SCH ×4 (01:00→19:24)
[2016-06-19] MEDS: Norco 10mg/325mg tab ORAL PRN ×2 (03:44→21:28)
[2016-06-19 04:00] VITALS: BP 105/62
[2016-06-19 08:00] VITALS: BP 95/59
--- NOTE | 2016-06-19 09:41 | Infectious Diseases Prog Note ---
Assessment/Plan Assessment/Plan : The patient is a 55-year-old female Pneumonia - SCx NRF - CXR 06/15: bilateral pulmonary edema or infiltrates, stable on the right , slightly worse on the left, over 2 days. Persistent small left pleural effusion - CT 06/11: left lung consolidation and right infiltrate. - pending: coccidioides serology - negative: CrAg HIV+, on unknown cART - CD4 : 339(24.2%), reportedly undetectable LACosis SP Low-grade fever - resolved, no leukocytosis Mediastinal LAD, elevated tumor markers Radiographic cirrhosis Negative RPR Toxoplasma IgG+ NKDA Full Code PLAN: cont on IV cefepime and add Zithromax d# 8 / 10 f/u final cultures Monitor chest x-ray - Monitor CBC Monitor BMP coccidio Ab, : P pt has not brought her meds list ( including HIV meds) Subjective Constitutional: Denies: anorexia, chills, drenching sweats, fatigue, fever, no symptoms, other Allergies: Coded Allergies: No Known Allergies (Unverified , 12/09/13) Objective Vital Signs Last 24 Hour Vital Signs Date Time Temp Pulse Resp B/P Pulse Ox O2 Delivery O2 Flow Rate FiO2 06/19/16 08:53 65 95/59 06/19/16 08:00 96.7 65 18 95/59 96 Nasal Cannula 2.0 06/19/16 04:00 97.8 70 18 105/62 90 Nasal Cannula 2.0 06/19/16 01:35 95 18 99 Nasal Cannula 2.0 28 06/19/16 01:30 89 18 95 Nasal Cannula 3.0 32 06/19/16 00:00 98.0 80 18 104/69 94 Room Air 06/18/16 19:40 88 18 97 Nasal Cannula 2.0 28 06/18/16 19:20 78 18 94 Nasal Cannula 3.0 32 06/18/16 19:00 98.2 82 20 107/72 93 Room Air 06/18/16 16:00 98.1 81 20 104/65 91 Room Air 06/18/16 13:36 82 18 97 Nasal Cannula 2.0 28 06/18/16 13:36 81 18 96 Nasal Cannula 2.0 28 06/18/16 12:00 98.2 82 18 100/49 90 Nasal Cannula 2.0 06/18/16 09:40 80 18 98 Nasal Cannula 2.0 28 06/18/16 09:40 79 18 98 Nasal Cannula 2.0 28 Height (Feet): 5 Height (Inches): 9.00 Weight (Pounds): 170 HEENT: atraumatic Respiratory/Chest: lungs clear Cardiovascular: normal rate Abdomen: soft, non tender, no organomegaly Current Medications Medications (Trade) Dose Ordered Sig/Benito Route PRN Reason Start Time Stop Time Status Last Admin Dose Admin Acetaminophen (Tylenol) 650 mg Q4H PRN ORAL Fever/Headache/Mild Pain 06/16/16 16:00 07/16/16 15:59 Acetaminophen/ Hydrocodone Bitart ([place] 10/325) 1 ea Q4H PRN ORAL Pain Scale (6-10) 06/16/16 16:00 06/23/16 15:59 06/19/16 03:44 Al Hydroxide/Mg Hydroxide (Mylanta II) 30 ml Q6H PRN ORAL dyspepsia 06/16/16 16:30 07/16/16 16:29 Albuterol/ Ipratropium (DuoNeb 0.5-3(2.5)mg/3ml) 3 ml Q4H PRN HHN Shortness of Breath 06/16/16 16:00 06/21/16 15:59 Albuterol/ Ipratropium (DuoNeb 0.5-3(2.5)mg/3ml) 3 ml Q6HRT HHN 06/16/16 19:00 06/21/16 18:59 06/19/16 07:52 Levofloxacin (Levaquin) 750 mg DAILY ORAL 06/19/16 09:00 06/21/16 08:59 06/19/16 08:52 Nifedipine (Procardia XL) 60 mg DAILY ORAL 06/17/16 09:00 07/17/16 08:59 Nitroglycerin (Ntg) 0.4 mg Q5M X 3 DOSES PRN SL Prn Chest Pain 06/16/16 15:30 07/16/16 15:29 Ondansetron HCl (Zofran) 4 mg Q6H PRN IVP Nausea & Vomiting 06/16/16 16:30 07/16/16 16:29 Polyethylene Glycol (Miralax) 17 gm DAILYPRN PRN ORAL Constipation 06/16/16 16:00 07/16/16 15:59 Promethazine HCl/ Codeine (Phenergan with Codeine) 5 ml Q4H PRN ORAL For Cough 06/16/16 16:00 07/16/16 15:59 06/18/16 20:51 Temazepam (Restoril) 15 mg HSPRN PRN ORAL Insomnia 06/16/16 16:30 06/23/16 16:29 JORGE DYE M.D. Jun 19, 2016 09:41
[2016-06-19 12:00] VITALS: BP 108/65
--- NOTE | 2016-06-19 13:33 | Diagnostic Imaging Report ---
APPROVED REPORT CPT Code: 54442 Present Symptoms Lower Extremity Pain: Bilateral BILATERAL: Imaging reveals a patent deep venous system bilaterally. There is no evidence of thrombus within the femoral, popliteal or tibial segments. The greater saphenous veins are also within normal limits. Doppler indicates normal spontaneous flow within these segments.
[2016-06-19 16:00] VITALS: BP 111/71
--- NOTE | 2016-06-19 17:48 | Pulmonology Progress Note ---
Assessment/Plan Problems: (1) Bilateral pneumonia Assessment & Plan: probably atypical pneumonia (2) Mediastinal lymphadenopathy (3) Hyponatremia (4) Portal hypertension (5) HTN (hypertension) Assessment/Plan improving clinically afebrile DC4 count noted continue antibiotics unusual pneumonia cxr noted from yesterday, cxr finding lagging clinically Subjective Interval Events: clinically improving Constitutional: Reports: no symptoms HEENT: Repors: no symptoms Allergies: Coded Allergies: No Known Allergies (Unverified , 12/09/13) Objective Last 24 Hour Vital Signs Date Time Temp Pulse Resp B/P Pulse Ox O2 Delivery O2 Flow Rate FiO2 06/19/16 16:53 Nasal Cannula 2.0 28 06/19/16 16:00 97.0 72 20 111/71 94 Nasal Cannula 2.0 06/19/16 13:17 68 18 Nasal Cannula 2.0 28 06/19/16 13:06 65 18 96 Nasal Cannula 2.0 28 06/19/16 12:00 97.2 70 18 108/65 95 Nasal Cannula 2.0 06/19/16 08:53 65 95/59 06/19/16 08:02 66 18 99 Nasal Cannula 2.0 28 06/19/16 08:00 96.7 65 18 95/59 96 Nasal Cannula 2.0 06/19/16 07:51 64 18 96 Nasal Cannula 2.0 28 06/19/16 04:00 97.8 70 18 105/62 90 Nasal Cannula 2.0 06/19/16 01:35 95 18 99 Nasal Cannula 2.0 28 06/19/16 01:30 89 18 95 Nasal Cannula 3.0 32 06/19/16 00:00 98.0 80 18 104/69 94 Room Air 06/18/16 19:40 88 18 97 Nasal Cannula 2.0 28 06/18/16 19:20 78 18 94 Nasal Cannula 3.0 32 06/18/16 19:00 98.2 82 20 107/72 93 Room Air Intake and Output 06/18/16 06/19/16 19:00 07:00 Intake Total 410 ml 360 ml Balance 410 ml 360 ml Intake Oral 360 ml 360 ml IV Total 50 ml # Voids 3 4 # Bowel Movements 4 General Appearance: WD/WN HEENT: atraumatic, anicteric Respiratory/Chest: chest wall non-tender, lungs clear Cardiovascular: normal peripheral pulses, normal rate Abdomen: soft, non tender Genitourinary: normal external genitalia Extremities: no clubbing Skin: no rash Current Medications Medications (Trade) Dose Ordered Sig/[place]ito Route PRN Reason Start Time Stop Time Status Last Admin Dose Admin Acetaminophen (Tylenol) 650 mg Q4H PRN ORAL Fever/Headache/Mild Pain 06/16/16 16:00 07/16/16 15:59 Acetaminophen/ Hydrocodone Bitart ([place] 10/325) 1 ea Q4H PRN ORAL Pain Scale (6-10) 06/16/16 16:00 06/23/16 15:59 06/19/16 03:44 Al Hydroxide/Mg Hydroxide (Mylanta II) 30 ml Q6H PRN ORAL dyspepsia 06/16/16 16:30 07/16/16 16:29 Albuterol/ Ipratropium (DuoNeb 0.5-3(2.5)mg/3ml) 3 ml Q4H PRN HHN Shortness of Breath 06/16/16 16:00 06/21/16 15:59 Albuterol/ Ipratropium (DuoNeb 0.5-3(2.5)mg/3ml) 3 ml Q6HRT HHN 06/16/16 19:00 06/21/16 18:59 06/19/16 13:07 Levofloxacin (Levaquin) 750 mg DAILY ORAL 06/19/16 09:00 06/21/16 08:59 06/19/16 08:52 Nifedipine (Procardia XL) 60 mg DAILY ORAL 06/17/16 09:00 07/17/16 08:59 Nitroglycerin (Ntg) 0.4 mg Q5M X 3 DOSES PRN SL Prn Chest Pain 06/16/16 15:30 07/16/16 15:29 Ondansetron HCl (Zofran) 4 mg Q6H PRN IVP Nausea & Vomiting 06/16/16 16:30 07/16/16 16:29 Polyethylene Glycol (Miralax) 17 gm DAILYPRN PRN ORAL Constipation 06/16/16 16:00 07/16/16 15:59 Promethazine HCl/ Codeine (Phenergan with Codeine) 5 ml Q4H PRN ORAL For Cough 06/16/16 16:00 1/30/17 15:59 06/18/16 20:51 Temazepam (Restoril) 15 mg HSPRN PRN ORAL Insomnia 06/16/16 16:30 06/23/16 16:29 JAD BYNUM Jun 19, 2016 17:47
[2016-06-19 19:00] VITALS: BP 122/77
[2016-06-19] MEDS: Promethazine/Codeine 5ml UD ORAL PRN (23:28)
[2016-06-20] VITALS: BP 109/70
[2016-06-20] MEDS: DuoNeb 0.5-3(2.5)mg/3ml neb HHN SCH ×4 (01:00→19:32)
[2016-06-20 04:00] VITALS: BP 111/69
[2016-06-20] MEDS: Norco 10mg/325mg tab ORAL PRN ×2 (04:09→19:09)
[2016-06-20 08:00] VITALS: BP 102/68
--- NOTE | 2016-06-20 08:48 | Infectious Diseases Prog Note ---
Assessment/Plan Assessment/Plan : The patient is a 55-year-old female Pneumonia - SCx NRF - CXR 06/15: bilateral pulmonary edema or infiltrates, stable on the right , slightly worse on the left, over 2 days. Persistent small left pleural effusion - CT 06/11: left lung consolidation and right infiltrate. - pending: coccidioides serology - negative: CrAg HIV+, on unknown cART - CD4 : 339(24.2%), reportedly undetectable LACosis SP Low-grade fever - resolved, no leukocytosis Mediastinal LAD, elevated tumor markers Radiographic cirrhosis Negative RPR Toxoplasma IgG+ NKDA Full Code PLAN: cont on IV Levaquin d# 2/ 5 , upon DC will change to PO ( SP 1/2 SP cefepime and add Zithromax d # 7 ) Monitor chest x-ray - Monitor CBC Monitor BMP coccidio Ab, : P pt has not brought her meds list ( including HIV meds) Subjective Constitutional: Denies: anorexia, chills, drenching sweats, fatigue, fever, no symptoms, other Allergies: Coded Allergies: No Known Allergies (Unverified , 12/09/13) Subjective pt is feeling better Objective Vital Signs Last 24 Hour Vital Signs Date Time Temp Pulse Resp B/P Pulse Ox O2 Delivery O2 Flow Rate FiO2 06/20/16 08:43 Nasal Cannula 2.0 28 06/20/16 08:43 72 18 96 Nasal Cannula 2.0 28 06/20/16 08:18 71 102/68 06/20/16 08:00 97.3 70 18 102/68 95 Nasal Cannula 2.0 06/20/16 04:00 97.7 80 18 111/69 94 Nasal Cannula 2.0 06/20/16 01:30 65 18 96 Nasal Cannula 2.0 28 06/20/16 01:30 68 18 96 Nasal Cannula 2.0 28 06/20/16 00:00 97.5 68 18 109/70 96 Nasal Cannula 2.0 06/19/16 19:25 66 18 96 Nasal Cannula 2.0 28 06/19/16 19:24 66 18 95 Nasal Cannula 2.0 28 06/19/16 19:00 97.5 71 20 122/77 92 Nasal Cannula 2.0 06/19/16 16:53 Nasal Cannula 2.0 28 06/19/16 16:00 97.0 72 20 111/71 94 Nasal Cannula 2.0 06/19/16 13:17 68 18 Nasal Cannula 2.0 28 06/19/16 13:06 65 18 96 Nasal Cannula 2.0 28 06/19/16 12:00 97.2 70 18 108/65 95 Nasal Cannula 2.0 06/19/16 08:53 65 95/59 Height (Feet): 5 Height (Inches): 9.00 Weight (Pounds): 170 HEENT: anicteric Respiratory/Chest: normal breath sounds Cardiovascular: regular rhythm Abdomen: no organomegaly Current Medications Medications (Trade) Dose Ordered Sig/Benito Route PRN Reason Start Time Stop Time Status Last Admin Dose Admin Acetaminophen (Tylenol) 650 mg Q4H PRN ORAL Fever/Headache/Mild Pain 06/16/16 16:00 07/16/16 15:59 Acetaminophen/ Hydrocodone Bitart ([place] 10/325) 1 ea Q4H PRN ORAL Pain Scale (6-10) 06/16/16 16:00 06/23/16 15:59 06/20/16 04:09 Al Hydroxide/Mg Hydroxide (Mylanta II) 30 ml Q6H PRN ORAL dyspepsia 06/16/16 16:30 07/16/16 16:29 Albuterol/ Ipratropium (DuoNeb 0.5-3(2.5)mg/3ml) 3 ml Q4H PRN HHN Shortness of Breath 06/16/16 16:00 06/21/16 15:59 Albuterol/ Ipratropium (DuoNeb 0.5-3(2.5)mg/3ml) 3 ml Q6HRT HHN 06/16/16 19:00 06/21/16 18:59 06/20/16 07:00 Diphenhydramine HCl (Benadryl) 50 mg Q6H PRN ORAL Itching 06/20/16 08:30 07/20/16 08:29 06/20/16 08:34 Levofloxacin (Levaquin) 750 mg DAILY ORAL 06/19/16 09:00 06/21/16 08:59 06/20/16 08:33 Nifedipine (Procardia XL) 60 mg DAILY ORAL 06/17/16 09:00 07/17/16 08:59 Nitroglycerin (Ntg) 0.4 mg Q5M X 3 DOSES PRN SL Prn Chest Pain 06/16/16 15:30 07/16/16 15:29 Ondansetron HCl (Zofran) 4 mg Q6H PRN IVP Nausea & Vomiting 06/16/16 16:30 07/16/16 16:29 Polyethylene Glycol (Miralax) 17 gm DAILYPRN PRN ORAL Constipation 06/16/16 16:00 07/16/16 15:59 Promethazine HCl/ Codeine (Phenergan with Codeine) 5 ml Q4H PRN ORAL For Cough 06/16/16 16:00 07/16/16 15:59 06/19/16 23:28 Temazepam (Restoril) 15 mg HSPRN PRN ORAL Insomnia 06/16/16 16:30 06/23/16 16:29 JORGE DYE M.D. Jun 20, 2016 08:48
[2016-06-20 11:56] VITALS: BP 118/77
[2016-06-20 16:02] VITALS: BP 113/60
--- NOTE | 2016-06-20 17:29 | Pulmonology Progress Note ---
Assessment/Plan Problems: (1) Bilateral pneumonia Assessment & Plan: probably atypical pneumonia (2) Mediastinal lymphadenopathy (3) Hyponatremia (4) Portal hypertension (5) HTN (hypertension) Assessment/Plan improving clinically afebrile DC4 count noted continue antibiotics unusual pneumonia cxr noted from yesterday, cxr finding lagging clinically repeat CT of chest in am Subjective ROS Limited/Unobtainable: No HEENT: Repors: no symptoms Allergies: Coded Allergies: No Known Allergies (Unverified , 12/09/13) Objective Last 24 Hour Vital Signs Date Time Temp Pulse Resp B/P Pulse Ox O2 Delivery O2 Flow Rate FiO2 06/20/16 16:02 97.3 76 15 113/60 100 Nasal Cannula 2.0 06/20/16 13:22 76 18 98 Nasal Cannula 2.0 28 06/20/16 13:12 75 18 95 Nasal Cannula 2.0 28 06/20/16 11:56 97.7 72 18 118/77 97 Nasal Cannula 2.0 06/20/16 08:54 71 18 97 Nasal Cannula 2.0 28 06/20/16 08:43 Nasal Cannula 2.0 28 06/20/16 08:43 72 18 96 Nasal Cannula 2.0 28 06/20/16 08:18 71 102/68 06/20/16 08:00 97.3 70 18 102/68 95 Nasal Cannula 2.0 06/20/16 04:00 97.7 80 18 111/69 94 Nasal Cannula 2.0 06/20/16 01:30 65 18 96 Nasal Cannula 2.0 28 06/20/16 01:30 68 18 96 Nasal Cannula 2.0 28 06/20/16 00:00 97.5 68 18 109/70 96 Nasal Cannula 2.0 06/19/16 19:25 66 18 96 Nasal Cannula 2.0 28 06/19/16 19:24 66 18 95 Nasal Cannula 2.0 28 06/19/16 19:00 97.5 71 20 122/77 92 Nasal Cannula 2.0 Intake and Output 06/19/16 06/20/16 19:00 07:00 Intake Total 440 ml 800 ml Balance 440 ml 800 ml Intake Oral 440 ml 800 ml # Voids 3 2 # Bowel Movements 1 General Appearance: WD/WN HEENT: normocephalic Respiratory/Chest: chest wall non-tender, lungs clear Cardiovascular: normal peripheral pulses, normal rate Abdomen: normal bowel sounds, soft, non tender Neurologic/Psychiatric: polisher balance screwhead II-XII grossly normal Lymphatic: no neck adenopathy Current Medications Medications (Trade) Dose Ordered Sig/Benito Route PRN Reason Start Time Stop Time Status Last Admin Dose Admin Acetaminophen (Tylenol) 650 mg Q4H PRN ORAL Fever/Headache/Mild Pain 06/16/16 16:00 07/16/16 15:59 Acetaminophen/ Hydrocodone Bitart ([place] 10/325) 1 ea Q4H PRN ORAL Pain Scale (6-10) 06/16/16 16:00 06/23/16 15:59 06/20/16 04:09 Al Hydroxide/Mg Hydroxide (Mylanta II) 30 ml Q6H PRN ORAL dyspepsia 06/16/16 16:30 07/16/16 16:29 Albuterol/ Ipratropium (DuoNeb 0.5-3(2.5)mg/3ml) 3 ml Q4H PRN HHN Shortness of Breath 06/16/16 16:00 06/21/16 15:59 Albuterol/ Ipratropium (DuoNeb 0.5-3(2.5)mg/3ml) 3 ml Q6HRT HHN 06/16/16 19:00 06/21/16 18:59 06/20/16 13:12 Diphenhydramine HCl (Benadryl) 50 mg Q6H PRN ORAL Itching 06/20/16 08:30 07/20/16 08:29 06/20/16 08:34 Levofloxacin (Levaquin) 750 mg DAILY ORAL 06/19/16 09:00 06/21/16 08:59 06/20/16 08:33 Nifedipine (Procardia XL) 60 mg DAILY ORAL 06/17/16 09:00 07/17/16 08:59 Nitroglycerin (Ntg) 0.4 mg Q5M X 3 DOSES PRN SL Prn Chest Pain 06/16/16 15:30 07/16/16 15:29 Ondansetron HCl (Zofran) 4 mg Q6H PRN IVP Nausea & Vomiting 06/16/16 16:30 07/16/16 16:29 Polyethylene Glycol (Miralax) 17 gm DAILYPRN PRN ORAL Constipation 06/16/16 16:00 07/16/16 15:59 Promethazine HCl/ Codeine (Phenergan with Codeine) 5 ml Q4H PRN ORAL For Cough 06/16/16 16:00 07/16/16 15:59 06/19/16 23:28 Temazepam (Restoril) 15 mg HSPRN PRN ORAL Insomnia 06/16/16 16:30 06/23/16 16:29 JAD BYNUM Jun 20, 2016 17:29
[2016-06-20 20:00] VITALS: BP 119/76
[2016-06-21] VITALS (7 sets, daily range): BP systolic 93–120; BP diastolic 60–78
[2016-06-21] MEDS: DuoNeb 0.5-3(2.5)mg/3ml neb HHN SCH ×3 (01:00→13:00)
[2016-06-21] MEDS: Norco 10mg/325mg tab ORAL PRN (08:31)
--- NOTE | 2016-06-21 11:11 | Diagnostic Imaging Report ---
Indications: Chest pain, bilateral pneumonia Technique: Continuous helical CT imaging of the thorax and upper abdomen was performed with automatic exposure control on a Siemens sensation [address] scanner. Axial images were reconstructed at 5 mm slice thickness and interval. Coronal images were reconstructed at 5 mm slice thickness. No IV contrast was administered secondary to requesting physician's order, despite no contraindications listed in either submitted clinical data or tech note.. CTDI volume(s): 21 mGy Total DLP: 718 mGy-cm Findings: Comparison: Thoracic CT angiogram 06/11/2016 Lack of IV contrast limits evaluation. Previous dense parenchymal consolidation with air bronchograms throughout much of the left lower lobe persists but is past year with interspersed areas of parenchymal reaeration. Patchy areas of peribronchial airspace consolidation in the right middle and lower lobes has increased in extent, now also involving the basal aspect of the right upper lobe. Patchy groundglass opacity and more discrete increased interstitial markings have developed in the periphery of the left upper lobe and have increased in the periphery of the right lower lobe. One or more lung masses in regions of parenchymal consolidation not excludable. Small bilateral pleural effusions have developed. The heart appears to have mildly increased in size. Previous pericardial effusion not currently evident. Multiple enlarged mediastinal and, to lesser extent, bilateral hilar low-attenuation lymph nodes again noted without obvious significant change. Calcified nodules again noted in right hilum. Scattered arterial mural calcification again noted. Vascular patency currently indeterminate. Chest wall soft tissues remain nonfocal. Enlargement of the liver and spleen, surface contour nodularity of the liver, multiple splenic nodular calcifications again noted. No focal skeletal abnormality demonstrated. Impression: Fluctuating pulmonary alveolar opacities as described, decreased left, increased right. This may reflect improving left and worsening right pneumonias. Superimposed congestive change must be considered, given the apparent increase in heart size, development of/increase in bilateral interstitial infiltrates, development of bilateral pleural effusions. Persistent mediastinal, bilateral hilar adenopathy, suboptimally evaluated due to lack of IV contrast Other stable chronic changes as described including right hilar and splenic calcified old granulomatous disease, arteriosclerosis, hepatosplenomegaly with evidence of cirrhosis
[2016-06-21] MEDS ORDERED: Morphine Sulfate 4mg/ml Inj IM PRN (15:15)
[2016-06-21] MEDS ORDERED: Norco 10mg/325mg tab ORAL PRN (15:17)
[2016-06-21] MEDS: Morphine Sulfate 4mg/ml Inj IVP PRN (15:29)
--- NOTE | 2016-06-21 16:54 | Pulmonology Progress Note ---
Assessment/Plan Problems: (1) Bilateral pneumonia Assessment & Plan: probably atypical pneumonia (2) Mediastinal lymphadenopathy (3) Hyponatremia (4) Portal hypertension (5) HTN (hypertension) Assessment/Plan pt/ot evaluation improving clinically afebrile DC4 count noted continue antibiotics unusual pneumonia will arrange for US of chest repeat CT of chest showed the following Impression: Fluctuating pulmonary alveolar opacities as described, decreased left, increased right. This may reflect improving left and worsening right pneumonias. Superimposed congestive change must be considered, given the apparent increase in heart size, development of/increase in bilateral interstitial infiltrates, development of bilateral pleural effusions. Subjective Interval Events: c.o headache Allergies: Coded Allergies: No Known Allergies (Unverified , 12/09/13) Objective Last 24 Hour Vital Signs Date Time Temp Pulse Resp B/P Pulse Ox O2 Delivery O2 Flow Rate FiO2 06/21/16 15:59 97.7 06/21/16 15:02 97.7 06/21/16 14:19 68 120/78 06/21/16 13:55 Nasal Cannula 06/21/16 13:55 Nasal Cannula 06/21/16 13:42 68 21 120/78 95 Room Air 06/21/16 11:42 97.7 81 20 105/60 97 Room Air 06/21/16 09:35 98.1 06/21/16 09:24 75 18 97 Nasal Cannula 2.0 28 06/21/16 09:14 73 18 95 Nasal Cannula 2.0 28 06/21/16 09:14 Nasal Cannula 2.0 28 06/21/16 09:14 95 Nasal Cannula 2.0 28 06/21/16 09:00 73 103/68 06/21/16 08:06 98.1 74 19 103/68 95 Room Air 06/21/16 04:00 96.6 74 20 103/66 94 Nasal Cannula 2.0 06/21/16 01:56 Nasal Cannula 06/21/16 01:36 Nasal Cannula 06/21/16 00:00 97.9 76 20 93/65 92 Nasal Cannula 2.0 06/20/16 20:00 97.7 82 20 119/76 99 Nasal Cannula 2.0 06/20/16 19:45 80 18 96 Nasal Cannula 2.0 28 06/20/16 19:33 78 18 94 Nasal Cannula 2.0 28 06/20/16 19:33 94 Nasal Cannula 2.0 28 06/20/16 19:32 Nasal Cannula 2.0 28 Intake and Output 06/20/16 06/21/16 19:00 07:00 Intake Total 440 ml 2002 ml Balance 440 ml 2003 ml Intake Oral 440 ml 803 ml Tube Feeding 1200 ml # Voids 5 # Bowel Movements 1 General Appearance: cachetic HEENT: normocephalic, atraumatic Respiratory/Chest: chest wall non-tender, lungs clear Breasts: no masses Cardiovascular: normal peripheral pulses Abdomen: normal bowel sounds, soft, non tender Extremities: no cyanosis Lymphatic: no neck adenopathy Current Medications Medications (Trade) Dose Ordered Sig/[place]ito Route PRN Reason Start Time Stop Time Status Last Admin Dose Admin Acetaminophen (Tylenol) 650 mg Q4H PRN ORAL Fever/Headache/Mild Pain 06/16/16 16:00 07/16/16 15:59 06/21/16 13:59 Acetaminophen/ Hydrocodone Bitart ([place] 10/325) 1 ea Q4H PRN ORAL Moderate Pain (Pain Scale 4-6) 06/21/16 15:17 06/23/16 15:59 Al Hydroxide/Mg Hydroxide (Mylanta II) 30 ml Q6H PRN ORAL dyspepsia 06/16/16 16:30 07/16/16 16:29 Albuterol/ Ipratropium (DuoNeb 0.5-3(2.5)mg/3ml) 3 ml Q6HRT HHN 06/16/16 19:00 06/21/16 18:59 06/21/16 09:14 Diphenhydramine HCl (Benadryl) 50 mg Q6H PRN ORAL Itching 06/20/16 08:30 07/20/16 08:29 06/20/16 08:34 Levofloxacin (Levaquin) 750 mg DAILY ORAL 06/19/16 09:00 06/23/16 23:59 06/21/16 09:39 Morphine Sulfate (Morphine Sulfate) 4 mg Q4H PRN IVP Severe Pain (Pain Scale 7-10) 06/21/16 15:30 06/28/16 15:29 06/21/16 15:29 Nifedipine (Procardia XL) 60 mg DAILY ORAL 06/17/16 09:00 07/17/16 08:59 06/21/16 14:19 Nitroglycerin (Ntg) 0.4 mg Q5M X 3 DOSES PRN SL Prn Chest Pain 06/16/16 15:30 07/16/16 15:29 Ondansetron HCl (Zofran) 4 mg Q6H PRN IVP Nausea & Vomiting 06/16/16 16:30 07/16/16 16:29 06/21/16 15:29 Polyethylene Glycol (Miralax) 17 gm DAILYPRN PRN ORAL Constipation 06/16/16 16:00 07/16/16 15:59 06/21/16 10:02 Promethazine HCl/ Codeine (Phenergan with Codeine) 5 ml Q4H PRN ORAL For Cough 06/16/16 16:00 07/16/16 15:59 06/19/16 23:28 Temazepam (Restoril) 15 mg HSPRN PRN ORAL Insomnia 06/16/16 16:30 06/23/16 16:29 JAD BYNUM Jun 21, 2016 16:54
[2016-06-21 18:31] LABS: INR 1.2 (0.9-1.1); PROTHROMBIN TIME 12.3 SEC (9.30-11.50)
[2016-06-21 19:10] LABS: COCCIDIODES AB-CF/SERUM Negative (Neg:<1:2)
--- NOTE | 2016-06-21 19:27 | Infectious Diseases Prog Note ---
Assessment/Plan Assessment/Plan : The patient is a 55-year-old female Pneumonia - SCx NRF - CXR 06/15: bilateral pulmonary edema or infiltrates, stable on the right , slightly worse on the left, over 2 days. Persistent small left pleural effusion - CT 06/11: left lung consolidation and right infiltrate. , repeat 06/21 CT : Fluctuating pulmonary alveolar opacities - pending: coccidioides serology - negative: CrAg HIV+, on unknown cART - CD4 : 339(24.2%), reportedly undetectable LACosis SP Low-grade fever - resolved, no leukocytosis Mediastinal LAD, elevated tumor markers Radiographic cirrhosis Negative RPR , coccidio Ab, Toxoplasma IgG+ NKDA Full Code PLAN: cont on IV Levaquin d# 3 / 5 , upon DC will change to PO ( SP 1/2 SP cefepime and add Zithromax d # 7 ) Monitor chest x-ray - Monitor CBC Monitor BMP pt has not brought her meds list ( including HIV meds) Subjective Constitutional: Denies: anorexia, chills, drenching sweats, fatigue, fever, no symptoms, other Allergies: Coded Allergies: No Known Allergies (Unverified , 12/09/13) Subjective pt is feeling better Objective Vital Signs Last 24 Hour Vital Signs Date Time Temp Pulse Resp B/P Pulse Ox O2 Delivery O2 Flow Rate FiO2 06/21/16 19:00 Nasal Cannula 2.0 28 06/21/16 19:00 100 Nasal Cannula 2.0 28 06/21/16 16:00 98.2 67 20 116/78 98 Room Air 2.0 06/21/16 15:59 97.7 06/21/16 15:02 97.7 06/21/16 14:19 68 120/78 06/21/16 13:55 Nasal Cannula 06/21/16 13:55 Nasal Cannula 06/21/16 13:42 68 21 120/78 95 Room Air 06/21/16 11:42 97.7 81 20 105/60 97 Room Air 06/21/16 09:35 98.1 06/21/16 09:24 75 18 97 Nasal Cannula 2.0 28 06/21/16 09:14 73 18 95 Nasal Cannula 2.0 28 06/21/16 09:14 Nasal Cannula 2.0 28 06/21/16 09:14 95 Nasal Cannula 2.0 28 06/21/16 09:00 73 103/68 06/21/16 08:06 98.1 74 19 103/68 95 Room Air 06/21/16 04:00 96.6 74 20 103/66 94 Nasal Cannula 2.0 06/21/16 01:56 Nasal Cannula 06/21/16 01:36 Nasal Cannula 06/21/16 00:00 97.9 76 20 93/65 92 Nasal Cannula 2.0 06/20/16 20:00 97.7 82 20 119/76 99 Nasal Cannula 2.0 06/20/16 19:45 80 18 96 Nasal Cannula 2.0 28 06/20/16 19:33 78 18 94 Nasal Cannula 2.0 28 06/20/16 19:33 94 Nasal Cannula 2.0 28 06/20/16 19:32 Nasal Cannula 2.0 28 Height (Feet): 5 Height (Inches): 9.00 Weight (Pounds): 170 HEENT: anicteric Respiratory/Chest: normal breath sounds Cardiovascular: regular rhythm Abdomen: soft, non tender Laboratory Tests Test 06/21/16 17:55 Prothrombin Time 12.3 SEC (9.30-11.50) H Prothromb Time International Ratio 1.2 (0.9-1.1) H Activated Partial Thromboplast Time 32 SEC (23-33) Current Medications Medications (Trade) Dose Ordered Sig/Benito Route PRN Reason Start Time Stop Time Status Last Admin Dose Admin Acetaminophen (Tylenol) 650 mg Q4H PRN ORAL Fever/Headache/Mild Pain 06/16/16 16:00 07/16/16 15:59 06/21/16 13:59 Acetaminophen/ Hydrocodone Bitart ([place] 10/325) 1 ea Q4H PRN ORAL Moderate Pain (Pain Scale 4-6) 06/21/16 15:17 06/23/16 15:59 Al Hydroxide/Mg Hydroxide (Mylanta II) 30 ml Q6H PRN ORAL dyspepsia 06/16/16 16:30 07/16/16 16:29 Diphenhydramine HCl (Benadryl) 50 mg Q6H PRN ORAL Itching 06/20/16 08:30 07/20/16 08:29 06/20/16 08:34 Levofloxacin (Levaquin) 750 mg DAILY ORAL 06/19/16 09:00 06/23/16 23:59 06/21/16 09:39 Morphine Sulfate (Morphine Sulfate) 4 mg Q4H PRN IVP Severe Pain (Pain Scale 7-10) 06/21/16 15:30 06/28/16 15:29 06/21/16 15:29 Nifedipine (Procardia XL) 60 mg DAILY ORAL 06/17/16 09:00 07/17/16 08:59 06/21/16 14:19 Nitroglycerin (Ntg) 0.4 mg Q5M X 3 DOSES PRN SL Prn Chest Pain 06/16/16 15:30 07/16/16 15:29 Ondansetron HCl (Zofran) 4 mg Q6H PRN IVP Nausea & Vomiting 06/16/16 16:30 07/16/16 16:29 06/21/16 15:29 Polyethylene Glycol (Miralax) 17 gm DAILYPRN PRN ORAL Constipation 06/16/16 16:00 07/16/16 15:59 06/21/16 10:02 Promethazine HCl/ Codeine (Phenergan with Codeine) 5 ml Q4H PRN ORAL For Cough 06/16/16 16:00 07/16/16 15:59 06/19/16 23:28 Temazepam (Restoril) 15 mg HSPRN PRN ORAL Insomnia 06/16/16 16:30 06/23/16 16:29 JORGE DYE M.D. Jun 21, 2016 19:27
[2016-06-22] VITALS: BP 118/79
[2016-06-22] MEDS: Morphine Sulfate 4mg/ml Inj IVP PRN (00:07)
[2016-06-22 04:00] VITALS: BP 109/78
[2016-06-22 08:00] VITALS: BP 114/72
--- NOTE | 2016-06-22 08:23 | Pulmonology Progress Note ---
Assessment/Plan Assessment/Plan ASSESSMENT bilateral PNA mediastinal lymphadenopathy elevated tumor markers elevated D dimer HIV status ( CD4 ee9) HTN portal HTN cirrhosis PLAN OF CARE MS floor O2 HHN prn CTA no PE Venous Duplex BLE negative abx, ID follows sputum cx negative blood cx negative RPR, fungal serology negative US chest pending, if sufficient fluid - will tap and send for cytology CT abdomen and pelvis today abd US c/w chronic hepatocellular disease/cirrhosis , + portal HTN, no ascites HAART therapy per ID when home medications verified, CD4 - 339 BP management with CCB ( Procardia) and optimize as needed case discussed and evaluated by supervising physician Subjective Allergies: Coded Allergies: No Known Allergies (Unverified , 12/09/13) Subjective afebrile, no leukocytosis no signs of respiratory distress all cancer tumor markers elevated Objective Last 24 Hour Vital Signs Date Time Temp Pulse Resp B/P Pulse Ox O2 Delivery O2 Flow Rate FiO2 06/22/16 04:00 96.1 73 20 109/78 93 Nasal Cannula 2.0 06/22/16 00:00 95.9 77 20 118/79 95 Nasal Cannula 2.0 06/21/16 19:00 Nasal Cannula 2.0 28 06/21/16 19:00 97.2 69 20 104/76 97 Nasal Cannula 2.0 06/21/16 19:00 100 Nasal Cannula 2.0 28 06/21/16 16:00 98.2 67 20 116/78 98 Room Air 2.0 06/21/16 15:59 97.7 06/21/16 15:02 97.7 06/21/16 14:19 68 120/78 06/21/16 13:55 Nasal Cannula 06/21/16 13:55 Nasal Cannula 06/21/16 13:42 68 21 120/78 95 Room Air 06/21/16 11:42 97.7 81 20 105/60 97 Room Air 06/21/16 09:35 98.1 06/21/16 09:24 75 18 97 Nasal Cannula 2.0 28 06/21/16 09:14 73 18 95 Nasal Cannula 2.0 28 06/21/16 09:14 Nasal Cannula 2.0 28 06/21/16 09:14 95 Nasal Cannula 2.0 28 06/21/16 09:00 73 103/68 Intake and Output 06/21/16 06/22/16 19:00 07:00 Intake Total 200 ml 640 ml Output Total 51 ml 2 ml Balance 149 ml 638 ml Intake Oral 200 ml 640 ml Output Urine Total 1 ml 2 ml Emesis 50 ml # Voids 6 General Appearance: no acute distress, other - awake, confused HEENT: normocephalic, atraumatic, anicteric Respiratory/Chest: no respiratory distress, no accessory muscle use, rhonchi - few isolated Cardiovascular: normal peripheral pulses, normal rate, no JVD Abdomen: soft, non tender, non distended Genitourinary: normal external genitalia Neurologic/Psychiatric: alert - confused Musculoskeletal: normal muscle bulk Laboratory Tests 06/21/16 17:55: Prothrombin Time 12.3H, Prothromb Time International Ratio 1.2H, Activated Partial Thromboplast Time 32 Current Medications Medications (Trade) Dose Ordered Sig/[place]ito Route PRN Reason Start Time Stop Time Status Last Admin Dose Admin Acetaminophen (Tylenol) 650 mg Q4H PRN ORAL Fever/Headache/Mild Pain 06/16/16 16:00 07/16/16 15:59 06/21/16 13:59 Acetaminophen/ Hydrocodone Bitart ([place] 10/325) 1 ea Q4H PRN ORAL Moderate Pain (Pain Scale 4-6) 06/21/16 15:17 06/23/16 15:59 Al Hydroxide/Mg Hydroxide (Mylanta II) 30 ml Q6H PRN ORAL dyspepsia 06/16/16 16:30 07/16/16 16:29 Diphenhydramine HCl (Benadryl) 50 mg Q6H PRN ORAL Itching 06/20/16 08:30 07/20/16 08:29 06/20/16 08:34 Levofloxacin (Levaquin) 750 mg DAILY ORAL 06/19/16 09:00 06/23/16 23:59 06/21/16 09:39 Morphine Sulfate (Morphine Sulfate) 4 mg Q4H PRN IVP Severe Pain (Pain Scale 7-10) 06/21/16 15:30 06/28/16 15:29 06/22/16 00:07 Nifedipine (Procardia XL) 60 mg DAILY ORAL 06/17/16 09:00 07/17/16 08:59 06/21/16 14:19 Nitroglycerin (Ntg) 0.4 mg Q5M X 3 DOSES PRN SL Prn Chest Pain 06/16/16 15:30 07/16/16 15:29 Ondansetron HCl (Zofran) 4 mg Q6H PRN IVP Nausea & Vomiting 06/16/16 16:30 07/16/16 16:29 06/21/16 15:29 Polyethylene Glycol (Miralax) 17 gm DAILYPRN PRN ORAL Constipation 06/16/16 16:00 07/16/16 15:59 06/21/16 10:02 Promethazine HCl/ Codeine (Phenergan with Codeine) 5 ml Q4H PRN ORAL For Cough 06/16/16 16:00 07/16/16 15:59 06/19/16 23:28 Temazepam (Restoril) 15 mg HSPRN PRN ORAL Insomnia 06/16/16 16:30 06/23/16 16:29 Vitaliy ([facility])Tete NP Jun 22, 2016 08:23
--- NOTE | 2016-06-22 08:32 | Diagnostic Imaging Report ---
Indication: H/A Technique: Continuous helical CT scanning of the head was performed without intravenous contrast material. Axial and coronal 5 mm sections were generated. Radiation dose was minimized using automated exposure control Dose: Total Dose Length Product - DLP [address] Dose Index - CTDIvol(s) 70.38 mGy. Comparison: None Findings: The ventricular system is normal in size and configuration. There is no shift of midline structures. No abnormal extra-axial fluid collections are noted. There is no evidence of intracerebral bleeding. No other abnormal high or low density areas are noted within the brain. Intact calvarium. Visualized orbits and sinuses are unremarkable. Impression: Normal CT scan of the head without contrast material. This agrees with the preliminary interpretation provided overnight by Dr. Miles The CT scanner at [facility] is accredited by the [employer] and the scans are performed using protocols designed to limit radiation exposure to as low as reasonably achievable to attain images of sufficient resolution adequate for diagnostic evaluation.
--- NOTE | 2016-06-22 10:43 | Infectious Diseases Prog Note ---
Assessment/Plan Assessment/Plan : The patient is a 55-year-old female Pneumonia - SCx NRF - CXR 06/15: bilateral pulmonary edema or infiltrates, stable on the right , slightly worse on the left, over 2 days. Persistent small left pleural effusion - CT 06/11: left lung consolidation and right infiltrate. , repeat 06/21 CT : Fluctuating pulmonary alveolar opacities - pending: coccidioides serology - negative: CrAg HIV+, on unknown cART - CD4 : 339(24.2%), reportedly undetectable LACosis SP Low-grade fever - resolved, no leukocytosis Mediastinal LAD, elevated tumor markers Radiographic cirrhosis Negative RPR , coccidio Ab, Toxoplasma IgG+ NKDA Full Code PLAN: cont on IV Levaquin d# 4 / 5 , upon DC will change to PO ( SP 1/2 SP cefepime and add Zithromax d # 7 ) Monitor chest x-ray - Monitor CBC Monitor BMP pt has not brought her meds list ( including HIV meds) CT of Abd :P Subjective Constitutional: Denies: anorexia, chills, drenching sweats, fatigue, fever, no symptoms, other Allergies: Coded Allergies: No Known Allergies (Unverified , 12/09/13) Subjective no new complain Objective Vital Signs Last 24 Hour Vital Signs Date Time Temp Pulse Resp B/P Pulse Ox O2 Delivery O2 Flow Rate FiO2 06/22/16 04:00 96.1 73 20 109/78 93 Nasal Cannula 2.0 06/22/16 00:00 95.9 77 20 118/79 95 Nasal Cannula 2.0 06/21/16 19:00 Nasal Cannula 2.0 28 06/21/16 19:00 97.2 69 20 104/76 97 Nasal Cannula 2.0 06/21/16 19:00 100 Nasal Cannula 2.0 28 06/21/16 16:00 98.2 67 20 116/78 98 Room Air 2.0 06/21/16 15:59 97.7 06/21/16 15:02 97.7 06/21/16 14:19 68 120/78 06/21/16 13:55 Nasal Cannula 06/21/16 13:55 Nasal Cannula 06/21/16 13:42 68 21 120/78 95 Room Air 06/21/16 11:42 97.7 81 20 105/60 97 Room Air Height (Feet): 5 Height (Inches): 9.00 Weight (Pounds): 170 HEENT: anicteric Respiratory/Chest: normal breath sounds Cardiovascular: normal peripheral pulses Abdomen: soft, non tender Laboratory Tests Test 06/21/16 17:55 Prothrombin Time 12.3 SEC (9.30-11.50) H Prothromb Time International Ratio 1.2 (0.9-1.1) H Activated Partial Thromboplast Time 32 SEC (23-33) Current Medications Medications (Trade) Dose Ordered Sig/[place]ito Route PRN Reason Start Time Stop Time Status Last Admin Dose Admin Acetaminophen (Tylenol) 650 mg Q4H PRN ORAL Fever/Headache/Mild Pain 06/16/16 16:00 07/16/16 15:59 06/21/16 13:59 Acetaminophen/ Hydrocodone Bitart ([place] 10/325) 1 ea Q4H PRN ORAL Moderate Pain (Pain Scale 4-6) 06/21/16 15:17 06/23/16 15:59 Al Hydroxide/Mg Hydroxide (Mylanta II) 30 ml Q6H PRN ORAL dyspepsia 06/16/16 16:30 07/16/16 16:29 Diphenhydramine HCl (Benadryl) 50 mg Q6H PRN ORAL Itching 06/20/16 08:30 07/20/16 08:29 06/20/16 08:34 Levofloxacin (Levaquin) 750 mg DAILY ORAL 06/19/16 09:00 06/23/16 23:59 06/21/16 09:39 Morphine Sulfate (Morphine Sulfate) 4 mg Q4H PRN IVP Severe Pain (Pain Scale 7-10) 06/21/16 15:30 06/28/16 15:29 06/22/16 00:07 Nifedipine (Procardia XL) 60 mg DAILY ORAL 06/17/16 09:00 07/17/16 08:59 06/21/16 14:19 Nitroglycerin (Ntg) 0.4 mg Q5M X 3 DOSES PRN SL Prn Chest Pain 06/16/16 15:30 07/16/16 15:29 Ondansetron HCl (Zofran) 4 mg Q6H PRN IVP Nausea & Vomiting 06/16/16 16:30 07/16/16 16:29 06/21/16 15:29 Polyethylene Glycol (Miralax) 17 gm DAILYPRN PRN ORAL Constipation 06/16/16 16:00 07/16/16 15:59 06/21/16 10:02 Promethazine HCl/ Codeine (Phenergan with Codeine) 5 ml Q4H PRN ORAL For Cough 06/16/16 16:00 07/16/16 15:59 06/19/16 23:28 Temazepam (Restoril) 15 mg HSPRN PRN ORAL Insomnia 06/16/16 16:30 06/23/16 16:29 JORGE DYE M.D. Jun 22, 2016 10:43
[2016-06-22 12:00] VITALS: BP 120/69
[2016-06-22] MEDS ORDERED: Tubing IV Secondary IV ONE (15:11)
[2016-06-22 16:00] VITALS: BP 114/77
--- NOTE | 2016-06-22 17:02 | Diagnostic Imaging Report ---
Indication: Abdominal pain Technique: Spiral acquisitions obtained through the abdomen and pelvis. No oral contrast, per patient request No IV contrast utilized, per referring physician request.. Multiplanar reconstructions were generated. Total dose length product 815 mGycm. CTDIvol(s) 14 mGy Comparison: Reference made to ultrasound dated 06/12/2016 Findings: The appendix is normal. No evidence of diverticulosis or diverticulitis. A small amount of free intraperitoneal fluid is seen within the pelvis. No small bowel distention. No free intraperitoneal air or loculated fluid collections. The distal esophagus, stomach, duodenum are unremarkable. The liver demonstrates areas of surface nodularity. The gallbladder is nondistended. No gross stones. No biliary ductal dilatation. Small recanalized paraumbilical vein varices are noted. Small areas of nodularity in the lesser sac Robley represent prominent lymph nodes, but perigastric varices cannot be ruled out. The pancreas is unremarkable. The spleen is enlarged, measuring 13.5 cm long axis dimension. It demonstrates multiple punctate calcifications, consistent with old granulomatous disease. Adrenals and kidneys are unremarkable. No retroperitoneal or mesenteric mass or adenopathy. No pelvic mass or adenopathy. Uterus and adnexal structures are unremarkable. Extensive parenchymal consolidation is seen at both lung bases. There are small bilateral pleural effusions. The bones are unremarkable. Impression: Evidence of hepatic cirrhosis, with some inferior liver surface contour nodularity Evidence of portal hypertension, with trace ascites, splenomegaly, paraumbilical vein varices, and possibly perigastric varices Fairly extensive bilateral basilar pulmonary parenchymal infiltrates versus edema Small bilateral pleural effusions The CT scanner at [facility] is accredited by the [employer] and the scans are performed using protocols designed to limit radiation exposure to as low as reasonably achievable to attain images of sufficient resolution adequate for diagnostic evaluation.
[2016-06-22 19:00] VITALS: BP 120/77
[2016-06-23] VITALS: BP 105/71
[2016-06-23] MEDS: Mylanta II UD 30ml ORAL PRN (02:56)
[2016-06-23 04:00] VITALS: BP 101/58
[2016-06-23 07:52] VITALS: BP 104/72
[2016-06-23 07:57] LABS: MEAN CORPUSCULAR HEMOGLOBIN 30.1 PG (27.0-31.0); MEAN CORPUSCULAR HGB CONC 32.4 G/DL (32.0-36.0); MEAN CORPUSCULAR VOLUME 93 FL (80-99); MEAN PLATELET VOLUME 6.8 FL (6.5-10.1); PLATELET COUNT 351 K/UL (150-450); RED BLOOD COUNT 4.06 M/UL (4.20-5.40); RED CELL DISTRIBUTION WIDTH 17.9 % (11.6-14.8); WHITE BLOOD COUNT 2.4 K/UL (4.8-10.8)
[2016-06-23 08:06] LABS: ANION GAP 15 (5-15); CALCIUM 8.4 mg/dL (8.6-10.2); CARBON DIOXIDE 24 mEQ/L (20-30); CHLORIDE 98 mEQ/L (98-107); CREATININE 0.6 mg/dL (0.5-0.9); GLOMERULAR FILTRATION RATE > 60 mL/min (>60); HEMOLYSIS 9; POTASSIUM 4.2 mEQ/L (3.4-4.9); SODIUM 137 mEQ/L (135-145)
[2016-06-23 10:04] LABS: ANISOCYTOSIS 1+; BAND NEUTROPHILS % (MANUAL) 1 % (0-8); BASOPHILS % (MANUAL) 0 % (0-2); EOSINOPHILS % (MANUAL) 0 % (0-3); HYPOCHROMASIA 1+; LYMPHOCYTES % (MANUAL) 42 % (20-45); NEUTROPHILS % (MANUAL) 53 % (45-75); PLATELET ESTIMATE ADEQUATE; PLATELET MORPHOLOGY NORMAL; TOTAL CELLS COUNTED 100
[2016-06-23 11:48] VITALS: BP 117/80
--- NOTE | 2016-06-23 15:51 | Pulmonology Progress Note ---
Assessment/Plan Assessment/Plan ASSESSMENT bilateral PNA mediastinal lymphadenopathy elevated tumor markers elevated D dimer HIV status ( CD4 ee9) HTN portal HTN cirrhosis PLAN OF CARE MS floor O2 HHN prn CTA no PE Venous Duplex BLE negative abx, ID follows sputum cx negative blood cx negative RPR, fungal serology negative friend at the bedside discussed with patient and friend patient agreed to ahave thoracentesis, will signs consent explained it can t be done until Saturday US chest on Saturday if sufficient fluid - will tap and send for cytology CT abdomen and pelvis done withotu contrast ( no cosnent waS SIGNED) - CTA/P revealed -Evidence of hepatic cirrhosis, with some inferior liver surface contour nodularity. Evidence of portal hypertension, with trace ascites, splenomegaly, paraumbilical vein varices, and possibly perigastric varices Fairly extensive bilateral basilar pulmonary parenchymal infiltrates versus edema Small bilateral pleural effusions. No evidence of malignancy despite elevated tumpr markers. abd US c/w chronic hepatocellular disease/cirrhosis , + portal HTN, no ascites HAART therapy per ID when home medications verified, CD4 - 339 BP management with CCB ( Procardia) and optimize as needed case discussed and evaluated by supervising physician Subjective Allergies: Coded Allergies: No Known Allergies (Unverified , 12/09/13) Subjective afebrile, no leukocytosis no signs of respiratory distress all cancer tumor markers elevated refused to signs consent for thoracentesis and CT A/P with contrast Objective Last 24 Hour Vital Signs Date Time Temp Pulse Resp B/P Pulse Ox O2 Delivery O2 Flow Rate FiO2 06/23/16 11:48 98.1 65 14 117/80 98 Room Air 06/23/16 07:52 97.0 70 15 104/72 97 Room Air 06/23/16 04:15 96.4 06/23/16 04:00 96.4 68 20 101/58 97 Nasal Cannula 2.0 06/23/16 00:00 96.4 77 20 105/71 97 Nasal Cannula 2.0 06/22/16 19:00 96.8 68 18 120/77 98 Room Air 06/22/16 16:00 96.4 73 20 114/77 94 Room Air Intake and Output 06/22/16 06/23/16 19:00 07:00 Intake Total 760 ml 1110 ml Balance 760 ml 1110 ml Intake Oral 760 ml 1110 ml # Voids 5 8 Objective General Appearance: no acute distress, awake, slightly agitated HEENT: normocephalic, atraumatic, anicteric Respiratory/Chest: no respiratory distress, no accessory muscle use, rhonchi - few isolated Cardiovascular: normal peripheral pulses, normal rate, no JVD Abdomen: soft, non tender, non distended Genitourinary: normal external genitalia Neurologic/Psychiatric: alert , speech intact, responsive, slightly agitated, no focal weakness Musculoskeletal: normal muscle bulk Laboratory Tests 06/23/16 05:50: White Blood Count 2.4L, Red Blood Count 4.06L, Hemoglobin 12.2, Hematocrit 37.7 , Mean Corpuscular Volume 93, Mean Corpuscular Hemoglobin 30.1, Mean Corpuscular Hemoglobin Concent 32.4, Red Cell Distribution Width 17.9H, Platelet Count 351, Mean Platelet Volume 6.8, Neutrophils (%) (Auto) , Lymphocytes (%) (Auto) , Monocytes (%) (Auto) , Eosinophils (%) (Auto) , Basophils (%) (Auto) , Differential Total Cells Counted 100, Neutrophils % ( Manual) 53, Lymphocytes % (Manual) 42, Monocytes % (Manual) 4, Eosinophils % ( Manual) 0, Basophils % (Manual) 0, Band Neutrophils 1, Platelet Estimate Adequate, Platelet Morphology Normal, Hypochromasia 1+, Anisocytosis 1+, Sodium Level 137, Potassium Level 4.2, Chloride Level 98, Carbon Dioxide Level 24, Anion Gap 15, Blood Urea Nitrogen 8, Creatinine 0.6, Estimat Glomerular Filtration Rate > 60, Glucose Level 92, Calcium Level 8.4L Current Medications Medications (Trade) Dose Ordered Sig/Benito Route PRN Reason Start Time Stop Time Status Last Admin Dose Admin Acetaminophen (Tylenol) 650 mg Q4H PRN ORAL Fever/Headache/Mild Pain 06/16/16 16:00 07/16/16 15:59 06/23/16 03:16 Acetaminophen/ Hydrocodone Bitart ([place]ristow 10/325) 1 ea Q4H PRN ORAL Moderate Pain (Pain Scale 4-6) 06/21/16 15:17 06/23/16 15:59 Al Hydroxide/Mg Hydroxide (Mylanta II) 30 ml Q6H PRN ORAL dyspepsia 06/16/16 16:30 07/16/16 16:29 06/23/16 02:56 Diphenhydramine HCl (Benadryl) 50 mg Q6H PRN ORAL Itching 06/20/16 08:30 07/20/16 08:29 06/20/16 08:34 Levofloxacin (Levaquin) 750 mg DAILY ORAL 06/19/16 09:00 06/23/16 23:59 06/21/16 09:39 Morphine Sulfate (Morphine Sulfate) 4 mg Q4H PRN IVP Severe Pain (Pain Scale 7-10) 06/21/16 15:30 06/28/16 15:29 06/22/16 00:07 Nifedipine (Procardia XL) 60 mg DAILY ORAL 06/17/16 09:00 07/17/16 08:59 06/21/16 14:19 Nitroglycerin (Ntg) 0.4 mg Q5M X 3 DOSES PRN SL Prn Chest Pain 06/16/16 15:30 07/16/16 15:29 Ondansetron HCl (Zofran) 4 mg Q6H PRN IVP Nausea & Vomiting 06/16/16 16:30 07/16/16 16:29 06/21/16 15:29 Polyethylene Glycol (Miralax) 17 gm DAILYPRN PRN ORAL Constipation 06/16/16 16:00 07/16/16 15:59 06/21/16 10:02 Promethazine HCl/ Codeine (Phenergan with Codeine) 5 ml Q4H PRN ORAL For Cough 06/16/16 16:00 07/16/16 15:59 06/19/16 23:28 Temazepam (Restoril) 15 mg HSPRN PRN ORAL Insomnia 06/16/16 16:30 06/23/16 16:29 Vitaliy GannonTete rosa NP Jun 23, 2016 15:51
[2016-06-24] VITALS: BP 126/75
[2016-06-24] MEDS: Mylanta II UD 30ml ORAL PRN (04:50)
[2016-06-24 07:54] VITALS: BP 123/66
--- NOTE | 2016-06-24 10:30 | Diagnostic Imaging Report ---
Indication: COUGH Technique: One view of the chest Comparison: 06/15/2016 Findings: Bilateral mid and lower lung infiltrates persists, unchanged. The heart size is borderline enlarged Impression: Unchanged, over 3 days, findings as above.
--- NOTE | 2016-06-24 11:43 | Infectious Diseases Prog Note ---
Assessment/Plan Assessment/Plan : The patient is a 55-year-old female Pneumonia - SCx NRF - CXR 06/15: bilateral pulmonary edema or infiltrates, stable on the right , slightly worse on the left, over 2 days. Persistent small left pleural effusion - CT 06/11: left lung consolidation and right infiltrate. , repeat 06/21 CT : Fluctuating pulmonary alveolar opacities - pending: coccidioides serology - negative: CrAg HIV+, on unknown cART - CD4 : 339(24.2%), reportedly undetectable LACosis SP Low-grade fever - resolved, no leukocytosis CT: CT of Abd :Hepatic cirrhosis, portal hypertension, trace ascites, splenomegaly, paraumbilical vein varices, and possibly perigastric varices Mediastinal LAD, elevated tumor markers Radiographic cirrhosis Negative RPR , coccidio Ab, Toxoplasma IgG+ NKDA Full Code PLAN: ( 06/23 SP IV Levaquin d# 5 ) , and monitor pt off of AB Rx ( 06/18 SP cefepime and add Zithromax d # 7 ) Monitor chest x-ray - Monitor CBC Monitor BMP pt has not brought her meds list ( including HIV meds) thoracentesis, after US chest on Saturday if sufficient fluid Subjective Allergies: Coded Allergies: No Known Allergies (Unverified , 12/09/13) Subjective no new complain Objective Vital Signs Last 24 Hour Vital Signs Date Time Temp Pulse Resp B/P Pulse Ox O2 Delivery O2 Flow Rate FiO2 06/24/16 09:40 70 123/66 06/24/16 07:54 97.7 70 14 123/66 96 Room Air 06/24/16 00:00 96.3 63 20 126/75 95 Room Air 06/23/16 11:48 98.1 65 14 117/80 98 Room Air Height (Feet): 5 Height (Inches): 9.00 Weight (Pounds): 170 HEENT: anicteric Respiratory/Chest: normal breath sounds Cardiovascular: normal rate Abdomen: no organomegaly Current Medications Medications (Trade) Dose Ordered Sig/Benito Route PRN Reason Start Time Stop Time Status Last Admin Dose Admin Acetaminophen (Tylenol) 650 mg Q4H PRN ORAL Fever/Headache/Mild Pain 06/16/16 16:00 07/16/16 15:59 06/23/16 03:16 Al Hydroxide/Mg Hydroxide (Mylanta II) 30 ml Q6H PRN ORAL dyspepsia 06/16/16 16:30 07/16/16 16:29 06/24/16 04:50 Diphenhydramine HCl (Benadryl) 50 mg Q6H PRN ORAL Itching 06/20/16 08:30 07/20/16 08:29 06/20/16 08:34 Morphine Sulfate (Morphine Sulfate) 4 mg Q4H PRN IVP Severe Pain (Pain Scale 7-10) 06/21/16 15:30 06/28/16 15:29 06/22/16 00:07 Nifedipine (Procardia XL) 60 mg DAILY ORAL 06/17/16 09:00 07/17/16 08:59 06/24/16 09:40 Nitroglycerin (Ntg) 0.4 mg Q5M X 3 DOSES PRN SL Prn Chest Pain 06/16/16 15:30 07/16/16 15:29 Ondansetron HCl (Zofran) 4 mg Q6H PRN IVP Nausea & Vomiting 06/16/16 16:30 07/16/16 16:29 06/21/16 15:29 Polyethylene Glycol (Miralax) 17 gm DAILYPRN PRN ORAL Constipation 06/16/16 16:00 07/16/16 15:59 06/21/16 10:02 Promethazine HCl/ Codeine (Phenergan with Codeine) 5 ml Q4H PRN ORAL For Cough 06/16/16 16:00 07/16/16 15:59 06/19/16 23:28 JORGE DYE M.D. Jun 24, 2016 11:43
--- NOTE | 2016-06-24 13:07 | Pulmonology Progress Note ---
Assessment/Plan Assessment/Plan ASSESSMENT bilateral PNA mediastinal lymphadenopathy elevated tumor markers elevated D dimer HIV status ( CD4 ee9) HTN portal HTN cirrhosis PLAN OF CARE MS floor O2 HHN prn CTA no PE Venous Duplex BLE negative abx, ID follows sputum cx negative blood cx negative RPR, fungal serology negative friend at the bedside discussed with patient and her friend patient agreed to have thoracentesis, will signs consent explained it can t be done until Saturday US chest on Saturday if sufficient fluid - will tap and send for cytology CT abdomen and pelvis done without contrast ( no consent was SIGNED) - CTA/P revealed -Evidence of hepatic cirrhosis, with some inferior liver surface contour nodularity. Evidence of portal hypertension, with trace ascites, splenomegaly, paraumbilical vein varices, and possibly perigastric varices Fairly extensive bilateral basilar pulmonary parenchymal infiltrates versus edema Small bilateral pleural effusions. No evidence of malignancy despite elevated tumor markers. abd US c/w chronic hepatocellular disease/cirrhosis , + portal HTN, no ascites HAART therapy per ID when home medications verified, CD4 - 339 BP management with CCB ( Procardia) and optimize as needed case discussed and evaluated by supervising physician Subjective Allergies: Coded Allergies: No Known Allergies (Unverified , 12/09/13) Subjective afebrile, no leukocytosis no signs of respiratory distress all cancer tumor markers elevated Objective Last 24 Hour Vital Signs Date Time Temp Pulse Resp B/P Pulse Ox O2 Delivery O2 Flow Rate FiO2 06/24/16 09:40 70 123/66 06/24/16 07:54 97.7 70 14 123/66 96 Room Air 06/24/16 00:00 96.3 63 20 126/75 95 Room Air Intake and Output 06/23/16 06/24/16 19:00 07:00 Intake Total 400 ml 240 ml Balance 400 ml 240 ml Intake Oral 400 ml 240 ml # Voids 4 3 Objective General Appearance: no acute distress, awake, slightly agitated HEENT: normocephalic, atraumatic, anicteric Respiratory/Chest: no respiratory distress, no accessory muscle use, rhonchi - few isolated Cardiovascular: normal peripheral pulses, normal rate, no JVD Abdomen: soft, non tender, non distended Genitourinary: normal external genitalia Neurologic/Psychiatric: alert , speech intact, responsive, slightly agitated, no focal weakness Musculoskeletal: normal muscle bulk Current Medications Medications (Trade) Dose Ordered Sig/Benito Route PRN Reason Start Time Stop Time Status Last Admin Dose Admin Acetaminophen (Tylenol) 650 mg Q4H PRN ORAL Fever/Headache/Mild Pain 06/16/16 16:00 07/16/16 15:59 06/23/16 03:16 Al Hydroxide/Mg Hydroxide (Mylanta II) 30 ml Q6H PRN ORAL dyspepsia 06/16/16 16:30 07/16/16 16:29 06/24/16 04:50 Diphenhydramine HCl (Benadryl) 50 mg Q6H PRN ORAL Itching 06/20/16 08:30 07/20/16 08:29 06/20/16 08:34 Morphine Sulfate (Morphine Sulfate) 4 mg Q4H PRN IVP Severe Pain (Pain Scale 7-10) 06/21/16 15:30 06/28/16 15:29 06/22/16 00:07 Nifedipine (Procardia XL) 60 mg DAILY ORAL 06/17/16 09:00 07/17/16 08:59 06/24/16 09:40 Nitroglycerin (Ntg) 0.4 mg Q5M X 3 DOSES PRN SL Prn Chest Pain 06/16/16 15:30 07/16/16 15:29 Ondansetron HCl (Zofran) 4 mg Q6H PRN IVP Nausea & Vomiting 06/16/16 16:30 07/16/16 16:29 06/21/16 15:29 Polyethylene Glycol (Miralax) 17 gm DAILYPRN PRN ORAL Constipation 06/16/16 16:00 07/16/16 15:59 06/21/16 10:02 Promethazine HCl/ Codeine (Phenergan with Codeine) 5 ml Q4H PRN ORAL For Cough 06/16/16 16:00 07/16/16 15:59 06/19/16 23:28 Vitaliy FloydAlice Hyde Medical CenterTete Bermudez NP Jun 24, 2016 13:07
[2016-06-25] VITALS (7 sets, daily range): BP systolic 100–131; BP diastolic 42–79
[2016-06-25] MEDS: Mylanta II UD 30ml ORAL PRN (04:27)
[2016-06-25 10:54] LABS: MEAN CORPUSCULAR HGB CONC 30.5 G/DL (32.0-36.0); MEAN CORPUSCULAR VOLUME 95 FL (80-99); MEAN PLATELET VOLUME 6.5 FL (6.5-10.1); PLATELET COUNT 292 K/UL (150-450); RED CELL DISTRIBUTION WIDTH 18.2 % (11.6-14.8)
[2016-06-25 11:05] LABS: ANION GAP 17 (5-15); CALCIUM 8.7 mg/dL (8.6-10.2); CARBON DIOXIDE 23 mEQ/L (20-30); CHLORIDE 96 mEQ/L (98-107); CREATININE 0.6 mg/dL (0.5-0.9); GLOMERULAR FILTRATION RATE > 60 mL/min (>60); HEMOLYSIS 6; POTASSIUM 3.8 mEQ/L (3.4-4.9); SODIUM 136 mEQ/L (135-145)
[2016-06-25 11:58] LABS: ANISOCYTOSIS 2+; BAND NEUTROPHILS % (MANUAL) 0 % (0-8); BASOPHILS % (MANUAL) 1 % (0-2); EOSINOPHILS % (MANUAL) 0 % (0-3); HYPOCHROMASIA 1+; LYMPHOCYTES % (MANUAL) 10 % (20-45); NEUTROPHILS % (MANUAL) 74 % (45-75); PLATELET ESTIMATE ADEQUATE; PLATELET MORPHOLOGY NORMAL; TOTAL CELLS COUNTED 100
--- NOTE | 2016-06-25 15:10 | Pulmonology Progress Note ---
Assessment/Plan Problems: (1) Bilateral pneumonia Assessment & Plan: probably atypical pneumonia (2) Mediastinal lymphadenopathy (3) Hyponatremia (4) Portal hypertension (5) HTN (hypertension) Assessment/Plan cxr noted one dose of laxis continue antibiotics will dc home soon. Subjective Interval Events: less cough, less short of breath Allergies: Coded Allergies: No Known Allergies (Unverified , 12/09/13) Objective Last 24 Hour Vital Signs Date Time Temp Pulse Resp B/P Pulse Ox O2 Delivery O2 Flow Rate FiO2 06/25/16 12:00 97.0 69 18 106/74 96 Room Air 06/25/16 09:00 74 108/70 06/25/16 08:00 97.8 74 18 108/70 98 Room Air 06/25/16 04:00 97.8 77 20 109/72 95 Room Air 06/25/16 00:00 97.8 76 20 106/67 96 Room Air 06/24/16 19:20 96 Room Air 06/24/16 19:20 Room Air Intake and Output 06/24/16 06/25/16 19:00 07:00 Intake Total 400 ml 240 ml Balance 400 ml 240 ml Intake Oral 400 ml 240 ml # Voids 3 4 General Appearance: WD/WN HEENT: normocephalic Respiratory/Chest: chest wall non-tender, lungs clear Cardiovascular: normal rate Abdomen: normal bowel sounds, soft, non tender Extremities: no clubbing Laboratory Tests 06/25/16 10:30: White Blood Count 3.0L, Red Blood Count 4.50, Hemoglobin 13.1, Hematocrit 42.9, Mean Corpuscular Volume 95, Mean Corpuscular Hemoglobin 29.0, Mean Corpuscular Hemoglobin Concent 30.5L, Red Cell Distribution Width 18.2H, Platelet Count 292 , Mean Platelet Volume 6.5, Neutrophils (%) (Auto) , Lymphocytes (%) (Auto) , Monocytes (%) (Auto) , Eosinophils (%) (Auto) , Basophils (%) (Auto) , Differential Total Cells Counted 100, Neutrophils % (Manual) 74, Lymphocytes % ( Manual) 10L, Monocytes % (Manual) 15H, Eosinophils % (Manual) 0, Basophils % ( Manual) 1, Band Neutrophils 0, Platelet Estimate Adequate, Platelet Morphology Normal, Red Blood Cell Morphology , Hypochromasia 1+, Anisocytosis 2+, Sodium Level 136, Potassium Level 3.8, Chloride Level 96L, Carbon Dioxide Level 23, Anion Gap 17H, Blood Urea Nitrogen 8, Creatinine 0.6, Estimat Glomerular Filtration Rate > 60, Glucose Level 95, Calcium Level 8.7 Current Medications Medications (Trade) Dose Ordered Sig/Benito Route PRN Reason Start Time Stop Time Status Last Admin Dose Admin Acetaminophen (Tylenol) 650 mg Q4H PRN ORAL Fever/Headache/Mild Pain 06/16/16 16:00 07/16/16 15:59 06/24/16 16:05 Al Hydroxide/Mg Hydroxide (Mylanta II) 30 ml Q6H PRN ORAL dyspepsia 06/16/16 16:30 07/16/16 16:29 06/25/16 04:27 Diphenhydramine HCl (Benadryl) 50 mg Q6H PRN ORAL Itching 06/20/16 08:30 07/20/16 08:29 06/20/16 08:34 Furosemide (Lasix) 40 mg ONCE ONCE IV 06/25/16 15:00 06/25/16 15:01 UNV Morphine Sulfate (Morphine Sulfate) 4 mg Q4H PRN IVP Severe Pain (Pain Scale 7-10) 06/21/16 15:30 06/28/16 15:29 06/22/16 00:07 Nifedipine (Procardia XL) 60 mg DAILY ORAL 06/17/16 09:00 07/17/16 08:59 06/24/16 09:40 Nitroglycerin (Ntg) 0.4 mg Q5M X 3 DOSES PRN SL Prn Chest Pain 06/16/16 15:30 07/16/16 15:29 Ondansetron HCl (Zofran) 4 mg Q6H PRN IVP Nausea & Vomiting 06/16/16 16:30 07/16/16 16:29 06/21/16 15:29 Polyethylene Glycol (Miralax) 17 gm DAILYPRN PRN ORAL Constipation 06/16/16 16:00 07/16/16 15:59 06/21/16 10:02 Promethazine HCl/ Codeine (Phenergan with Codeine) 5 ml Q4H PRN ORAL For Cough 06/16/16 16:00 07/16/16 15:59 06/19/16 23:28 JAD BYNUM Jun 25, 2016 15:10
--- NOTE | 2016-06-25 16:48 | Infectious Diseases Prog Note ---
Assessment/Plan Assessment/Plan ASSESSMENT: 55 year-old female with: Atypical pneumonia - SCx NRF SP Rx - CT Chest 06/21: Fluctuating pulmonary alveolar opacities, decreased left, increased right. This may reflect improving left and worsening right pneumonias. Superimposed congestive change must be considered. Development of bilateral pleural effusions. - negative: CrAg, coccidioides serology HIV+, on unknown cART - CD4 : 339(24.2%), reportedly undetectable LACosis SP Low-grade fever - resolved Leukopenia Mediastinal LAD, elevated tumor markers Radiographic cirrhosis Negative RPR Toxoplasma IgG+ NKDA Full Code PLAN: Monitor pt off of ABX ( 06/23 SP IV Levaquin d# 5 ) ( 06/18 SP cefepime and add Zithromax d # 7 ) Monitor CBC, temperatures Monitor BMP Monitor CXR pt has not brought her meds list ( including HIV meds) Subjective Allergies: Coded Allergies: No Known Allergies (Unverified , 12/09/13) Subjective fevers resolved. breathing comfortable, cough improved still has not got med list Objective Vital Signs Last 24 Hour Vital Signs Date Time Temp Pulse Resp B/P Pulse Ox O2 Delivery O2 Flow Rate FiO2 06/25/16 12:00 97.0 69 18 106/74 96 Room Air 06/25/16 09:00 74 108/70 06/25/16 08:00 97.8 74 18 108/70 98 Room Air 06/25/16 04:00 97.8 77 20 109/72 95 Room Air 06/25/16 00:00 97.8 76 20 106/67 96 Room Air 06/24/16 19:20 96 Room Air 06/24/16 19:20 Room Air Height (Feet): 5 Height (Inches): 9.00 Weight (Pounds): 170 General Appearance: no acute distress Respiratory/Chest: no respiratory distress Cardiovascular: normal rate, regular rhythm Abdomen: normal bowel sounds, soft, non tender, non distended Laboratory Tests Test 06/25/16 10:30 White Blood Count 3.0 K/UL (4.8-10.8) L Red Blood Count 4.50 M/UL (4.20-5.40) Hemoglobin 13.1 G/DL (12.0-16.0) Hematocrit 42.9 % (37.0-47.0) Mean Corpuscular Volume 95 FL (80-99) Mean Corpuscular Hemoglobin 29.0 PG (27.0-31.0) Mean Corpuscular Hemoglobin Concent 30.5 G/DL (32.0-36.0) L Red Cell Distribution Width 18.2 % (11.6-14.8) H Platelet Count 292 K/UL (150-450) Mean Platelet Volume 6.5 FL (6.5-10.1) Neutrophils (%) (Auto) % (45.0-75.0) Lymphocytes (%) (Auto) % (20.0-45.0) Monocytes (%) (Auto) % (1.0-10.0) Eosinophils (%) (Auto) % (0.0-3.0) Basophils (%) (Auto) % (0.0-2.0) Differential Total Cells Counted 100 Neutrophils % (Manual) 74 % (45-75) Lymphocytes % (Manual) 10 % (20-45) L Monocytes % (Manual) 15 % (1-10) H Eosinophils % (Manual) 0 % (0-3) Basophils % (Manual) 1 % (0-2) Band Neutrophils 0 % (0-8) Platelet Estimate Adequate Platelet Morphology Normal Red Blood Cell Morphology Hypochromasia 1+ Anisocytosis 2+ Sodium Level 136 mEQ/L (135-145) Potassium Level 3.8 mEQ/L (3.4-4.9) Chloride Level 96 mEQ/L (98-107) L Carbon Dioxide Level 23 mEQ/L (20-30) Anion Gap 17 (5-15) H Blood Urea Nitrogen 8 mg/dL (7-23) Creatinine 0.6 mg/dL (0.5-0.9) Estimat Glomerular Filtration Rate > 60 mL/min (>60) Glucose Level 95 mg/dL (74-106) Calcium Level 8.7 mg/dL (8.6-10.2) Current Medications Medications (Trade) Dose Ordered Sig/Benito Route PRN Reason Start Time Stop Time Status Last Admin Dose Admin Acetaminophen (Tylenol) 650 mg Q4H PRN ORAL Fever/Headache/Mild Pain 06/16/16 16:00 07/16/16 15:59 06/24/16 16:05 Al Hydroxide/Mg Hydroxide (Mylanta II) 30 ml Q6H PRN ORAL dyspepsia 06/16/16 16:30 07/16/16 16:29 06/25/16 04:27 Diphenhydramine HCl (Benadryl) 50 mg Q6H PRN ORAL Itching 06/20/16 08:30 07/20/16 08:29 06/20/16 08:34 Morphine Sulfate (Morphine Sulfate) 4 mg Q4H PRN IVP Severe Pain (Pain Scale 7-10) 06/21/16 15:30 06/28/16 15:29 06/22/16 00:07 Nifedipine (Procardia XL) 60 mg DAILY ORAL 06/17/16 09:00 07/17/16 08:59 06/24/16 09:40 Nitroglycerin (Ntg) 0.4 mg Q5M X 3 DOSES PRN SL Prn Chest Pain 06/16/16 15:30 07/16/16 15:29 Ondansetron HCl (Zofran) 4 mg Q6H PRN IVP Nausea & Vomiting 06/16/16 16:30 07/16/16 16:29 06/21/16 15:29 Polyethylene Glycol (Miralax) 17 gm DAILYPRN PRN ORAL Constipation 06/16/16 16:00 07/16/16 15:59 06/21/16 10:02 Promethazine HCl/ Codeine (Phenergan with Codeine) 5 ml Q4H PRN ORAL For Cough 06/16/16 16:00 07/16/16 15:59 06/19/16 23:28 ESDRAS PETERS Jun 25, 2016 16:48
[2016-06-26] VITALS: BP 102/66
[2016-06-26 04:00] VITALS: BP 126/71
[2016-06-26 08:00] VITALS: BP 119/89
[2016-06-26 12:00] VITALS: BP 148/72
[2016-06-26] MEDS ORDERED: Haloperidol 5mg/ml Inj IVPB PRN (14:45)
[2016-06-26] MEDS ORDERED: HALOPERIDOL LACTATE IVPB PRN (15:15)
[2016-06-26] MEDS ORDERED: D5W IVPB PRN (15:15)
[2016-06-26 16:00] VITALS: BP 102/70
--- NOTE | 2016-06-26 16:41 | Infectious Diseases Prog Note ---
Assessment/Plan Assessment/Plan ASSESSMENT: 55 year-old female with: Atypical pneumonia - SCx NRF SP Rx - CT Chest 06/21: Fluctuating pulmonary alveolar opacities, decreased left, increased right. This may reflect improving left and worsening right pneumonias. Superimposed congestive change must be considered. Development of bilateral pleural effusions. - negative: CrAg, coccidioides serology HIV+, on unknown cART - CD4 : 339(24.2%), reportedly undetectable LACosis SP Low-grade fever - resolved Leukopenia Mediastinal LAD, elevated tumor markers r/o malignancy Radiographic cirrhosis Negative RPR Toxoplasma IgG+ NKDA Full Code PLAN: ok to DC off of ABX from ID standpoint ( 06/23 SP IV Levaquin d# 5 ) ( 06/18 SP cefepime and add Zithromax d # 7 ) Monitor CBC, temperatures Monitor BMP Monitor CXR pt has not brought her meds list ( including HIV meds) d/w Dr. Soni Subjective Allergies: Coded Allergies: No Known Allergies (Unverified , 12/09/13) Subjective fevers resolved. breathing comfortable, cough improved still has not got med list Objective Vital Signs Last 24 Hour Vital Signs Date Time Temp Pulse Resp B/P Pulse Ox O2 Delivery O2 Flow Rate FiO2 06/26/16 12:00 98.2 76 18 148/72 100 Room Air 06/26/16 09:00 76 148/72 06/26/16 08:00 98.0 158 20 119/89 96 Room Air 06/26/16 04:00 97.6 73 18 126/71 96 Room Air 06/26/16 00:00 96.8 67 18 102/66 96 Room Air 06/25/16 20:15 98.8 74 18 131/79 97 Room Air 06/25/16 19:30 Room Air 21 06/25/16 19:30 97 Room Air 21 Height (Feet): 5 Height (Inches): 9.00 Weight (Pounds): 170 General Appearance: no acute distress Respiratory/Chest: no respiratory distress Cardiovascular: normal rate, regular rhythm Abdomen: normal bowel sounds, soft, non tender, non distended Current Medications Medications (Trade) Dose Ordered Sig/Benito Route PRN Reason Start Time Stop Time Status Last Admin Dose Admin Acetaminophen (Tylenol) 650 mg Q4H PRN ORAL Fever/Headache/Mild Pain 06/16/16 16:00 07/16/16 15:59 06/24/16 16:05 Al Hydroxide/Mg Hydroxide (Mylanta II) 30 ml Q6H PRN ORAL dyspepsia 06/16/16 16:30 07/16/16 16:29 06/25/16 04:27 Diphenhydramine HCl (Benadryl) 50 mg Q6H PRN ORAL Itching 06/20/16 08:30 07/20/16 08:29 06/20/16 08:34 Haloperidol Lactate/Dextrose (Haldol/D5W 50ml) 51 ml @ 200 mls/hr Q4H PRN IVPB Agitation 06/26/16 15:15 07/26/16 15:14 Morphine Sulfate 4 mg 4 mg Q4H PRN IVP Severe Pain (Pain Scale 7-10) 06/21/16 15:30 06/28/16 15:29 06/22/16 00:07 Nifedipine (Procardia XL) 60 mg DAILY ORAL 06/17/16 09:00 07/17/16 08:59 06/24/16 09:40 Nitroglycerin (Ntg) 0.4 mg Q5M X 3 DOSES PRN SL Prn Chest Pain 06/16/16 15:30 07/16/16 15:29 Ondansetron HCl (Zofran) 4 mg Q6H PRN IVP Nausea & Vomiting 06/16/16 16:30 07/16/16 16:29 06/21/16 15:29 Polyethylene Glycol (Miralax) 17 gm DAILYPRN PRN ORAL Constipation 06/16/16 16:00 07/16/16 15:59 06/21/16 10:02 Promethazine HCl/ Codeine (Phenergan with Codeine) 5 ml Q4H PRN ORAL For Cough 06/16/16 16:00 07/16/16 15:59 06/19/16 23:28 ESDRAS PETERS Jun 26, 2016 16:41
--- NOTE | 2016-06-26 16:45 | Pulmonology Progress Note ---
Assessment/Plan Problems: (1) Bilateral pneumonia Assessment & Plan: probably atypical pneumonia improved (2) Mediastinal lymphadenopathy (3) Hyponatremia (4) Portal hypertension (5) HTN (hypertension) Assessment/Plan pt still confused wants to go home but doens't know where she lives get ammonia level to see if she has some component of hepatic encephalopathy Subjective ROS Limited/Unobtainable: No Constitutional: Reports: no symptoms HEENT: Repors: no symptoms Allergies: Coded Allergies: No Known Allergies (Unverified , 12/09/13) Objective Last 24 Hour Vital Signs Date Time Temp Pulse Resp B/P Pulse Ox O2 Delivery O2 Flow Rate FiO2 06/26/16 12:00 98.2 76 18 148/72 100 Room Air 06/26/16 09:00 76 148/72 06/26/16 08:00 98.0 158 20 119/89 96 Room Air 06/26/16 04:00 97.6 73 18 126/71 96 Room Air 06/26/16 00:00 96.8 67 18 102/66 96 Room Air 06/25/16 20:15 98.8 74 18 131/79 97 Room Air 06/25/16 19:30 Room Air 21 06/25/16 19:30 97 Room Air 21 Intake and Output 06/25/16 06/26/16 19:00 07:00 Intake Total 120 ml 880 ml Balance 120 ml 880 ml Intake Oral 120 ml 880 ml # Voids 3 2 General Appearance: WD/WN HEENT: normocephalic Respiratory/Chest: chest wall non-tender, lungs clear Breasts: no masses Cardiovascular: normal peripheral pulses Abdomen: normal bowel sounds, soft, non tender Skin: no rash Current Medications Medications (Trade) Dose Ordered Sig/Benito Route PRN Reason Start Time Stop Time Status Last Admin Dose Admin Acetaminophen (Tylenol) 650 mg Q4H PRN ORAL Fever/Headache/Mild Pain 06/16/16 16:00 07/16/16 15:59 06/24/16 16:05 Al Hydroxide/Mg Hydroxide (Mylanta II) 30 ml Q6H PRN ORAL dyspepsia 06/16/16 16:30 07/16/16 16:29 06/25/16 04:27 Diphenhydramine HCl (Benadryl) 25 mg Q6H PRN ORAL Itching 06/26/16 20:30 07/26/16 20:29 UNV Furosemide (Lasix) 20 mg ONCE ONCE ORAL 06/26/16 16:45 06/26/16 16:46 UNV Haloperidol Lactate/Dextrose (Haldol/D5W 50ml) 51 ml @ 200 mls/hr Q4H PRN IVPB Agitation 06/26/16 15:15 07/26/16 15:14 Morphine Sulfate (Morphine Sulfate) 2 mg Q4H PRN IVP Severe Pain (Pain Scale 7-10) 06/26/16 19:30 07/03/16 19:29 UNV Nifedipine (Procardia XL) 60 mg DAILY ORAL 06/17/16 09:00 07/17/16 08:59 06/24/16 09:40 Nitroglycerin (Ntg) 0.4 mg Q5M X 3 DOSES PRN SL Prn Chest Pain 06/16/16 15:30 07/16/16 15:29 Ondansetron HCl (Zofran) 4 mg Q6H PRN IVP Nausea & Vomiting 06/16/16 16:30 07/16/16 16:29 06/21/16 15:29 Polyethylene Glycol (Miralax) 17 gm DAILYPRN PRN ORAL Constipation 06/16/16 16:00 07/16/16 15:59 06/21/16 10:02 Promethazine HCl/ Codeine 5 ml 5 ml Q4H PRN ORAL For Cough 06/16/16 16:00 07/16/16 15:59 06/19/16 23:28 JAD BYNUM Jun 26, 2016 16:45
[2016-06-26] MEDS ORDERED: Morphine Sulfate 2mg/ml Inj IVP PRN (19:30)
--- NOTE | 2016-06-27 01:27 | Consultation ---
DATE OF CONSULTATION: HISTORY OF PRESENT ILLNESS: This is a 55-year-old female with unknown psychiatric history, who has been admitted to the hospital with chief complaint of three days of feeling ill, , also coughing. During the first few days of the hospitalization, the patient appeared to be lucid, however, as the hospitalization progressed, the patient became more confused and , uncooperative. Psychiatry was consulted as the patient is confused and agitated, also attempts to leave the hospital. She is unable to provide history, unable to state where lives. The patient is unable to understand, process, communicate, or appreciate. The information is given to her in regards to her medical condition. She has poor insight and judgment into her mental condition. PAST PSYCHIATRIC HISTORY: Unknown. The patient is currently being treated by Haldol as needed for anxiety and agitation. PAST MEDICAL HISTORY: Significant for hypertension, chronic back pain, portal hypertension, hyponatremia, pneumonia, human immunodeficiency virus, and mediastinal lymphadenopathy. ALLERGIES: No known drug allergies. SUBSTANCE ABUSE HISTORY: No known history of illicit drug use or alcohol. MENTAL STATUS EXAMINATION: The patient is confused and disoriented. Unable to provide any history. Mood is anxious. Affect is constricted and congruent with mood. Thought process is tangential. Thought content, positive for delusions. Insight and judgment is impaired. Cognition is impaired. ASSESSMENT: Manor I Delirium due to general medical condition. Manor II Deferred. Manor III As above. Manor IV Low. Manor V Global assessment of functioning is 25. 1. The patient lacks capacity to leave against medical advice, as she is confused and unable to provide any history. 2. We will start the patient on risperidone mg by mouth at bedtime. 3. We will continue to follow and readjust the medication. Dot Hernandez M.D. DR: ANMOL JOB#: [id number] CC:
--- NOTE | 2016-06-27 14:02 | Discharge Summary ---
Discharge Summary Hospital Course Date of Admission Jun 11, 2016 at 20:40 Date of Discharge Jun 26, 2016 at 17:45 Admitting Diagnosis pulmonary infiltrates HPI Dayana Simmons is a 55 year old female who was admitted on Jun 11, 2016 at 20: 40 for Pulmonary Infiltrates Hospital Course dc summary #[id number] Discharge Condition Upon Discharge: stable Discharge Disposition Patient signed AMA Discharge Diagnoses: Vitaliy (Neena),Tete RUVALCABA Jun 27, 2016 14:02
--- NOTE | 2016-06-28 06:57 | Discharge Summary 2 SIG ---
DATE OF ADMISSION: 06/11/2016 DATE OF SIGNING AGAINST MEDICAL ADVICE: 06/26/2016. REASON FOR HOSPITALIZATION: 55-year-old female with a known history of human immunodeficiency virus, presented with a three-day of feeling ill. She had left flank pain, worse with moving around. She denied any trauma or injury. She had cough for three weeks. No chest pain, no shortness of breath,no hemoptysis. No fevers, chills. She denied sore throat, nausea, vomiting, diarrhea, dysuria, or hematuria. She denied any major medical problems except HIV. HOSPITAL COURSE: In the emergency department, noted elevated D dimer, she had a CTA to rule out pulmonary embolism , which revealed no pulmonary embolism, but extensive pulmonary edema and lymphadenopathy. The patient was admitted for further management. Infectious Disease doctor was called on consult. Supplemental oxygen and pulmonary toilet provided as needed. The patient was on antibiotics. Sputum culture was negative. Urine culture was negative. Status post antibiotics as of 06/26/2016. ID recommended observe the patient off antibiotics. Blood culture negative as well. Venous duplex bilateral lower extremities was negative. RPR, fungal serology were negative. The patient with a history of HIV. CD4 is 339. The patient was unable to provide ID with the medications she is taking at home. I asked the patient on multiple occasions to get the number of the pharmacy, so ID could verify the medications. However, the patient repeatedly refused to do so. Blood pressure was managed with calcium channel kd and was stable. During further workup, it was found that the patient had elevated tumor markers. Subsequently, the patient undergone CT of the head, which revealed no acute intracranial pathology. CT of the chest revealed persistent bilateral hilar adenopathy and mediastinal adenopathy. It also revealed fluctuating pulmonary alveolar opacity, which subsequently reflected improving left and worsening right pneumonia. CT of the abdomen and pelvis done without contrast since the patient refused to sign the contrast, and it revealed evidence of hepatic cirrhosis. No evidence of malignancy. The patient had elevated CA 15-3, elevated CA 99, elevated CA 27, and elevated CA-125. The patient needs extensive workup as an outpatient. The patient declined to sign consent for possible thoracentesis as well as CT abdomen/pelvis with contrast. Ultrasound of the chest was scheduled to check if it is enough pleural fluid to tap. However, the patient declined it. Psychiatric consult was requested to see the patient. The patient decided to sign against medical advice. Dr. Soni was notified. The patient was picked up by her significant other. The patient was informed that she needs further workup to follow up as an outpatient if she is signing against medical advice. The patient was also informed about the risks and consequences of signing against medical advice. The patient insisted on signing against medical advice. FINAL DIAGNOSES: Include: 1. Atypical bilateral pneumonia. 2. Persistent bilateral mediastinal hilar adenopathy. 3. Elevated tumor markers. Rule out malignancy. 4. Elevated D-dimer. 5. Human immunodeficiency virus status (CD4 339). 6. Hypertension. 7. Portal hypertension. 8. Hepatic cirrhosis. DISCHARGE INSTRUCTIONS: Patient was instructed to follow up with the primary medical doctor for further workup regarding elevated tumor markers. Gamal Soni M.D. Tete [facility] HospitalAidan N.PKendar VALENTE: ZOEY JOB#: [id number] CC: TRAVIS
--- NOTE | 2016-07-03 12:00 | Diagnostic Imaging Report ---
Indication: Dyspnea Comparison: June 18, 2016 A single view chest radiograph was obtained. Findings: Interstitial edema/vascular congestion is mild if present at all and there is improved from the last study. Heart size has become normal. Lung volumes are low. There is likely some atelectasis at the lung bases. Impression: Basal atelectasis. Minimal residual congestion may be present.
== END 2016-06-26 17:45 | disposition left against medical advice (07) | DRG 139 ==
LOC: ENRESERVTM → ENRESERVDT → EMR 14:33 → EDBEDREQ 20:30 → 2E 20:40 → 4E 06-12 21:50 → 2E 06-13 22:57 → 4E 06-16 14:57
DX: J18.9 Pneumonia, unspecified organism (principal); K76.6 Portal hypertension; F05 Delirium due to known physiological condition; J90 Pleural effusion, not elsewhere classified; E87.1 Hypo-osmolality and hyponatremia; K74.60 Unspecified cirrhosis of liver; I10 Essential (primary) hypertension; R59.0 Localized enlarged lymph nodes; Z53.21 Procedure and treatment not carried out due to patient leaving prior to being seen by health care provider
CPT/HCPCS: 36415; 70450; 71010; 71020; 71250; 71275; 74176; 76700; 80048; 80053; 80069; 81001; 81003; 82533; 82550; 83605; 83615; 83735; 83880; 83930; 83935; 84100; 84300; 84439; 84443; 84481; 84484; 84550; 85007; 85025; 85379; 85610; 85730; 86300; 86301; 86304; 86360; 86580; 86592; 86635; 86689; 86703; 86777; 86778; 87040; 87070; 87205; 87449; 93005; 93970; 94640; 94664; 94760; J2405; J7620; J8499